=== PATIENT | male | born 1965 | race Caucasian/White ===

== ENCOUNTER 2020-12-31 00:47 | Inpatient (IN) | payer BC ==
--- NOTE | 2020-12-31 01:41 | ED ---
General Adult HPI - General Chief complaint: Shortness of Breath Stated complaint: CHIVO, Covid+ Time Seen by Provider: 12/31/20 01:08 Source: patient, EMS Mode of arrival: EMS Limitations: no limitations - History of Present Illness Initial comments: 55-year-old male with history of coronary artery disease, diabetes, hypertension presenting to the emergency department with a chief complaint of shortness of breath. Patient is a transfer from [facility] for Covid pneumonia. Patient was found to be Covid positive and had bilateral pneumonia. Patient was transferred on BiPAP and was given Ativan to help with anxiety. On arrival, patient reported improvement in his respiratory effort and which transition to a high flow nasal cannula 10 L. Patient reports is only experiencing shortness of breath without any chest pain. States the symptoms of an ongoing for the past 10 days. Not Covid vaccinated. - Related Data Allergies Allergy/AdvReac Type Severity Reaction Status Date / Time aspirin Allergy Anaphylaxis Verified 12/31/20 00:53 Review of Systems ROS Statement: Those systems with pertinent positive or pertinent negative responses have been documented in the HPI. ROS Other: All systems not noted in ROS Statement are negative. Past Medical History Past Medical History: Diabetes Mellitus, Hypertension, Myocardial Infarction (PR) History of Any Multi-Drug Resistant Organisms: None Reported Additional Past Surgical History / Comment(s): Stent Past Psychological History: No Psychological Hx Reported Smoking Status: Never smoker Past Alcohol Use History: None Reported Past Drug Use History: None Reported General Exam Limitations: no limitations General appearance: alert, in no apparent distress Head exam: Present: atraumatic, normocephalic, normal inspection Eye exam: Present: normal appearance, PERRL, EOMI Pupils: Present: normal accommodation ENT exam: Present: normal exam, normal oropharynx, mucous membranes moist Neck exam: Present: normal inspection, full ROM. Absent: tenderness Respiratory exam: Present: normal lung sounds bilaterally, decreased breath sounds. Absent: respiratory distress, wheezes, rales, rhonchi, stridor Cardiovascular Exam: Present: regular rate, normal rhythm, normal heart sounds. Absent: systolic murmur GI/Abdominal exam: Present: soft. Absent: distended, tenderness, guarding, rebound Extremities exam: Present: normal inspection, full ROM, normal capillary refill. Absent: tenderness Back exam: Present: normal inspection, full ROM. Absent: tenderness Neurological exam: Present: alert, oriented X3 Psychiatric exam: Present: normal affect, normal mood Skin exam: Present: warm, dry, intact, normal color Course Vital Signs 12/31/20 12/31/20 12/31/20 00:48 01:21 01:53 Temperature 98.5 F Pulse Rate 77 69 Respiratory 18 30 H 18 Rate Blood Pressure 106/77 97/68 O2 Sat by Pulse 99 95 Oximetry EKG Findings - EKG Comments: EKG Findings:: Right bundle-branch block. Ventricular rate 91, AL 134, QRS 110, QTc 450. Medical Decision Making - Medical Decision Making 55-year-old male with history of hypertension, coronary artery disease and diabetes presenting to the emergency department for Covid pneumonia. On physical examination, patient does appear to be dyspneic with decreased breath sounds. Oxygen saturation is 95% on high flow nasal cannula. Patient is otherwise resting comfortably. I discussed the case with who will admit. Case discussed with Dr. Ocampo Pulmonary consult Disposition Clinical Impression: Pneumonia due to COVID-19 virus Disposition: ADMITTED IP TO THIS HOSP Condition: Fair Is patient prescribed a controlled substance at d/c from ED?: No Referrals: None,Stated [Primary Care Provider] - 1-2 days Time of Disposition: 02:33
[2020-12-31] MEDS ORDERED: NALOXONE 0.4 MG/ML 1 ML VIAL IV PRN (01:58)
[2020-12-31] MEDS ORDERED: BENZONATATE 100 MG CAP PO PRN (04:44)
[2020-12-31] MEDS ORDERED: ACETAMINOPHEN TAB 325 MG TAB PO PRN (04:45)
--- NOTE | 2020-12-31 04:54 | P.HPIM ---
History of Present Illness H&P Date: 12/31/20 Chief Complaint: Covid pneumonitis 55-year-old male diabetes mellitus hypertension coronary artery disease Was transferred to our facility from [facility] due to acute hypoxic respiratory failure secondary to Covid pneumonitis. Patient was diagnosed with Covid about 10 days ago he claims to have symptoms for about 10 days now he is not recalling any sick contacts. He is reporting fevers and chills and shortness of breath but denies any chest pain severe cough and congestion. He is also reporting diffuse body aches denies any diarrhea or vomiting. He is not vaccinated against Covid At the other facility was found to be hypoxic and was given some Ativan to help him calm down , Decadron, and was started on BiPAP and was transferred to our facility Chest x-ray over there showed bilateral infiltrates suggestive of atypical pneumonia, Covid testing was positive, renal function was unremarkable, potassium was low at 3.2, liver enzymes were unremarkable, hemoglobin was 15, CRP was elevated, troponins negative At our facility patient was evaluated and stabilized, at this point he was switched to high flow nasal cannula Review of Systems Pertinent positives as noted in HPI. All other systems were reviewed and are negative Past Medical History Past Medical History: Diabetes Mellitus, Myocardial Infarction ([place]) Last Myocardial Infarction Date:: 10/21/2013 History of Any Multi-Drug Resistant Organisms: None Reported Additional Past Surgical History / Comment(s): Stent in 2013, one stent in each leg one in 2018 and the other in 2019 Past Psychological History: No Psychological Hx Reported Smoking Status: Never smoker Past Alcohol Use History: None Reported Past Drug Use History: None Reported - Past Family History Family Family Medical History: No Reported History Medications and Allergies Home Medications and Allergies Comment(s): Patient showed me his med list on his phone where he access from his medical record Home Medications Medication Instructions Recorded Confirmed Type Nebivolol HCl [Bystolic] 10 mg PO DAILY 12/31/20 12/31/20 History Allergies Allergy/AdvReac Type Severity Reaction Status Date / Time aspirin Allergy Anaphylaxis Verified 12/31/20 00:53 Physical Exam Vitals: Vital Signs Temp Pulse Resp BP Pulse Ox 12/31/20 04:04 94 L 12/31/20 03:00 71 22 95/64 96 12/31/20 01:53 69 18 97/68 95 12/31/20 01:21 30 H 12/31/20 00:48 98.5 F 77 18 106/77 99 Intake and Output 12/30/20 12/30/20 12/31/20 14:59 22:59 06:59 Other: Weight 81.647 kg Constitutional: Patient only answers by nodding had he is very short of breath currently on high flow nasal cannula Eyes: Anicteric sclerae, moist conjunctiva, Pupils equal round reactive to light ENMT: NC/AT Neck: Supple, no masses, or JVD No carotid bruits No thyromegaly Lungs: Good breath sounds bilaterally Clear to percussion Normal respiratory effort, no accessory muscle use Cardiovascular: Heart regular in rate and rhythm, No murmurs, gallops, or rubs No peripheral edema Abdominal: Soft Nontender, no guarding, rebound or rigidity Abdomen moving with respiration Normoactive bowel sounds No hepatomegaly, No splenomegaly No palpable mass No abdominal wall hernia noted Skin: Normal temperature, tone, texture, turgor No induration No subcutaneous nodules No rash, lesions No ulcers Extremities: No digital cyanosis No clubbing Pedal pulses intact and symmetrical Radial pulses intact and symmetrical No calf tenderness Psychiatric: Alert and oriented to person, place and time Appropriate affect fair judgement Neuro Muscles Strength 5/5 in all 4 extremities Sensation to light touch grossly present throughout Cranial nerves II-XII grossly intact No focal sensory deficits Lymphatics: no palpable cervical or supraclavicular , or inguinal lymph nodes Thrombosis Risk Factor Assmnt - Choose All That Apply Each Factor Represents 1 point: Acute [place], Age 41-60 years, Obesity (BMI >25) Other Risk Factors: No Other congenital or acquired thrombophilia - If yes, enter type in comment: No Thrombosis Risk Factor Assessment Total Risk Factor Score: 3 Thrombosis Risk Factor Assessment Level: Moderate Risk Assessment and Plan Assessment: Acute hypoxic respiratory failure Acute Covid midnight his Supplemental oxygen as needed Chest x-ray showed bilateral atypical infiltrates Covid testing positive at the other facility Patient started on Decadron High flow oxygen Supportive care Tylenol for fever Check d-dimer, fibrinogen, PT INR, troches, BMP, LDH, CRP, ferritin, CK, poor prognostic evaluation Pulmonary consult Symptomatic control of coughing and pain Chronic conditions CAD Hypertension Diabetes mellitus Patient on multi antiplatelets medications for his cardiac history, he is on cholesterol medications Resume blood pressure medications Patient also on pradaxa for history of clots this is not clear again patient was giving limited history Insulin sliding scale Prognosis is guarded Patient is full code Anticipated length of stay more than 2 midnights
[2020-12-31 06:27] LABS: Partial Thromboplastin Time 25.1 sec (22.0-30.0); Prothrombin Time 10.4 sec (9.0-12.0)
[2020-12-31] MEDS: SODIUM CHLORIDE 0.9% 1,000 ML IV SCH ×2 (08:22→21:15)
[2020-12-31 08:47] LABS: Glucose,Whole Blood 215 mg/dL (75-99)
[2020-12-31] MEDS ORDERED: CLOPIDOGREL 75 MG TAB PO SCH (09:00)
[2020-12-31] MEDS: INSULIN ASPART (NovoLOG) 100 UNIT/ML VIAL SQ SCH ×4 (09:04→21:15)
[2020-12-31] MEDS: NEBIVOLOL 5 MG TAB PO SCH (09:05)
[2020-12-31] MEDS: DABIGATRAN 150 MG CAP PO SCH ×2 (09:05→21:15)
[2020-12-31] MEDS: PANTOPRAZOLE 40 MG TABLET PO SCH ×2 (09:05→17:17)
[2020-12-31] MEDS: dexAMETHasone 2 MG TAB PO SCH (09:05)
[2020-12-31] MEDS: LOSARTAN 25 MG TAB PO SCH (09:05)
[2020-12-31] MEDS: TICAGRELOR 90 MG TAB PO SCH ×2 (09:06→21:15)
[2020-12-31] MEDS: EZETIMIBE 10 MG TAB PO SCH (09:07)
[2020-12-31 09:32] LABS: Basophils # (A) 0.01 X 10*3/uL (0.00-0.10); Basophils % (A) 0.4 %; Eosinophils # (A) 0 X 10*3/uL (0.04-0.35); Eosinophils % (A) 0 %; HCT 39.8 % (39.6-50.0); HGB 13.8 g/dL (13.0-17.0); Lymphocytes # (A) 0.37 X 10*3/uL (0.90-5.00); Lymphocytes % (A) 15.2 %; MCH 28.5 pg (27.0-32.0); MCHC 34.7 g/dL (32.0-37.0); MCV 82.2 fL (80.0-97.0); Mean Platelet Volume 9.8 fL (9.5-12.2); Monocytes # (A) 0.14 X 10*3/uL (0.20-1.00); Monocytes % (A) 5.8 %; Neutrophils # (A) 1.89 X 10*3/uL (1.80-7.70); Neutrophils % (A) 77.8 %; Platelet Count 137 X 10*3/uL (140-440); RBC 4.84 X 10*6/uL (4.40-5.60); RDW 13.1 % (11.5-14.5); WBC 2.43 X 10*3/uL (4.50-10.00)
[2020-12-31 11:07] LABS: Glucose,Whole Blood 248 mg/dL (75-99)
[2020-12-31 14:41] LABS: African American GFR (CKD) 99.1 (60.0-200.0); Albumin 3.8 g/dL (3.80-4.90); Albumin/Globulin Ratio 1.52 (1.60-3.17); Anion Gap 12.3 mmol/L (4.00-12.00); C Reactive Protein 7.9 mg/dL (0.0-0.8); Calcium 8.2 mg/dL (8.7-10.3); Carbon Dioxide 23.7 mmol/L (21.6-31.8); Ferritin 2075.8 ng/mL (22.0-322.0); Globulin 2.5 g/dL (1.6-3.3); Non-African American GFR(CKD) 85.5 (60.0-200.0); Total Bilirubin 0.9 mg/dL (0.3-1.2); Total Protein 6.3 g/dL (6.2-8.2)
--- NOTE | 2020-12-31 15:39 | P.CNPUL ---
History of Present Illness Consult date: 12/31/20 Requesting physician: Wilbur Corrigan Reason for consult: dyspnea, cough, hypoxemia, pneumonia, abnormal CXR/CT Chief complaint: Shortness of breath. History of present illness: Pulmonary consult dated 12/31/2020. 56-year-old male, seen in the emergency room, on December 31. The patient has a history of diabetes and hypertension. He Presents to the emergency room complaining of shortness of breath. The patient was apparently transferred from [facility] and [place]. There he was apparently diagnosed with COVID pneumonia. The patient was diagnosed with bilateral pneumonia secondary to coronavirus. The patient was transferred down on BiPAP therapy. He was quite anxious. More recently, he was transitioned over to high flow nasal O2. He denied any chest pain or chest discomfort. There is no fever or chills. The patient has been having symptoms for at least 10 days and may be a bit longer. The patient has not received a coronavirus vaccine. Currently, the patient is on AIRVO, at 40 L/m and 55%. His saturations are in the low 90s. White count 2.43, hemoglobin 13.8, hematocrit 39.8, and platelet count 137,000. PT 10.4, INR 1, fibrinogen 524, PTT 25.1, and d-dimer 0.83. Sodium was 135, potassium 4, chloride 99, CO2 24, anion gap 12, BUN 28, creatinine 1. The patient's CK was 428. LDH was 647, and C-reactive protein was 7.9. Chest x-ray showed diffuse bilateral infiltrates. Currently, the patient's on albuterol inhaler, Decadron, Pradaxa, and his usual cardiac medications. Review of Systems REVIEW OF SYSTEMS: CONSTITUTIONAL: [Negative.] NEUROLOGIC: [ Negative.] HEENT: [ Negative.] CARDIAC: [Negative.] PULMONARY: Shortness of breath, and difficulty in taking a deep breath. GI: [Negative.] : [Negative.] RHEUMATOLOGIC: [ Negative.] IMMUNOLOGIC: [ Negative.] ENDOCRINE: [Negative. ] DERMATOLOGIC: [Negative.] Past Medical History Past Medical History: Diabetes Mellitus, Myocardial Infarction ([place]) Last Myocardial Infarction Date:: 10/21/2013 History of Any Multi-Drug Resistant Organisms: None Reported Additional Past Surgical History / Comment(s): Stent in 2013, one stent in each leg one in 2018 and the other in 2019 Past Psychological History: No Psychological Hx Reported Smoking Status: Never smoker Past Alcohol Use History: None Reported Past Drug Use History: None Reported - Past Family History Family Family Medical History: No Reported History Medications and Allergies Home Medications Medication Instructions Recorded Confirmed Type Dabigatran [Pradaxa] 150 mg PO BID 12/31/20 12/31/20 History Empagliflozin [Jardiance] 10 mg PO DAILY 12/31/20 12/31/20 History Ezetimibe [Zetia] 10 mg PO DAILY 12/31/20 12/31/20 History Nebivolol HCl [Bystolic] 10 mg PO DAILY 12/31/20 12/31/20 History Nitroglycerin [Nitroglycerin 1 spray SUBLINGUAL Q5M PRN 12/31/20 12/31/20 History 400MCG [place]] Olmesartan Medoxomil 5 mg PO DAILY 12/31/20 12/31/20 History Omeprazole [PriLOSEC] 40 mg PO DAILY 12/31/20 12/31/20 History Ticagrelor [Brilinta] 90 mg PO BID 12/31/20 12/31/20 History metFORMIN HCL [Glucophage] 500 mg PO BID 12/31/20 12/31/20 History Allergies Allergy/AdvReac Type Severity Reaction Status Date / Time aspirin Allergy Anaphylaxis Verified 12/31/20 07:12 Physical Exam Osteopathic Statement: *. No significant issues noted on an osteopathic structural exam other than those noted in the History and Physical/Consult. Vitals: Vital Signs Temp Pulse Pulse Resp BP BP Pulse Ox 12/31/20 14:00 97.5 F L 70 18 92/64 92 L 12/31/20 09:13 76 16 101/68 12/31/20 08:00 76 16 12/31/20 06:00 97.7 F 52 L 22 96/62 92 L 12/31/20 04:04 94 L 12/31/20 03:00 71 22 95/64 96 12/31/20 01:53 69 18 97/68 95 12/31/20 01:21 30 H 12/31/20 00:48 98.5 F 77 18 106/77 99 Intake and Output 12/31/20 12/31/20 12/31/20 06:59 14:59 22:59 Other: # Voids 1 Weight 81.647 kg 81.647 kg No acute distress, oriented 3. No conversational dyspnea or use of accessory muscles. HEENT examination is grossly unremarkable. Neck supple. Full range of motion. No adenopathy thyromegaly or neck vein distention. Cardiovascular examination reveals regular rhythm rate. S1-S2 normal. No S3 or S4. No discernible murmur noted. Heart sounds are distant. Heart rate 70 bpm. Lungs reveal bilateral rhonchi. No wheezes or crackles. Breath sounds equal bilaterally. Saturations are 92-93% on AIRVO. Abdomen soft bowel sounds are heard. No masses or tenderness. Extremities are intact. No cyanosis clubbing or edema. Skin is without rash or lesion. Neurologic examination is brief but nonfocal. Results - Laboratory Findings CBC and BMP: 12/31/20 05:55 12/31/20 05:55 PT/INR, D-dimer PT 10.4 sec (9.0-12.0) 12/31/20 05:55 INR 1.0 (<1.2) 12/31/20 05:55 D-Dimer 0.83 mg/L FEU (<0.60) H 12/31/20 05:55 Abnormal lab findings: Abnormal Labs 12/31/20 12/31/20 12/31/20 05:55 05:55 05:55 WBC 2.43 L Plt Count 137 L Lymphocytes # 0.37 L Monocytes # 0.14 L Eosinophils # 0 L Fibrinogen 524 H D-Dimer 0.83 H Anion Gap 12.30 H BUN 28.0 H BUN/Creatinine Ratio 28.00 H Glucose 225 H POC Glucose (mg/dL) Calcium 8.2 L Ferritin 2075.8 H AST 65 H Lactate Dehydrogenase 647 H Creatine Kinase 428 H C-Reactive Protein 7.9 H Albumin/Globulin Ratio 1.52 L 12/31/20 12/31/20 08:45 11:06 WBC Plt Count Lymphocytes # Monocytes # Eosinophils # Fibrinogen D-Dimer Anion Gap BUN BUN/Creatinine Ratio Glucose POC Glucose (mg/dL) 215 H 248 H Calcium Ferritin AST Lactate Dehydrogenase Creatine Kinase C-Reactive Protein Albumin/Globulin Ratio - Diagnostic Findings Chest x-ray: image reviewed Assessment and Plan Assessment: Acute hypoxemic respiratory failure secondary to coronavirus pneumonia. History of diabetes mellitus. History of hypertension. History of coronary artery disease. History of myocardial infarction. History of hyperlipidemia. Plan: Plan dated 12/31/2020. Currently, the patient's an albuterol inhaler, pradaxa, and Decadron. The patient should also have vitamin C, vitamin D3, and zinc added to his regimen. Additional recommendations and suggestions are forthcoming. We will continue to follow make recommendations where appropriate. The patient may become a candidate for monoclonal antibody against interleukin-6, should his oxygenation worsened. I will order a chest x-ray for the morning. Time with Patient: Greater than 30
[2020-12-31] MEDS: ALBUTEROL HFA INHALER INHALATION PRN ×2 (16:01→19:53)
--- NOTE | 2020-12-31 16:19 | XR ---
EXAMINATION TYPE: XR chest 1V portable DATE OF EXAM: 12/31/2020 HISTORY: COVID pneumonia COMPARISON: None. TECHNIQUE: Single view of the chest is submitted. FINDINGS: Demonstrated are scattered senescent parenchymal change. Patchy perihilar and basilar infiltrates compatible with Covid 19 pneumonia. The heart is stable. Hilar and mediastinal structures are within normal limits. Degenerative changes are seen of the dorsal spine. IMPRESSION: 1. Patchy perihilar and basilar infiltrates compatible with Covid 19 pneumonia.
[2020-12-31 16:59] LABS: Glucose,Whole Blood 229 mg/dL (75-99)
[2020-12-31 21:04] LABS: Glucose,Whole Blood 268 mg/dL (75-99)
[2021-01-01] MEDS: SODIUM CHLORIDE 0.9% 1,000 ML IV SCH (04:54)
[2021-01-01] MEDS: PANTOPRAZOLE 40 MG TABLET PO SCH ×2 (06:52→17:12)
[2021-01-01] MEDS: INSULIN ASPART (NovoLOG) 100 UNIT/ML VIAL SQ SCH ×4 (06:52→21:16)
[2021-01-01 06:59] LABS: Glucose,Whole Blood 213 mg/dL (75-99)
[2021-01-01] MEDS: TICAGRELOR 90 MG TAB PO SCH ×2 (08:25→21:16)
[2021-01-01] MEDS: ZINC SULFATE 220 MG CAP PO SCH (08:26)
[2021-01-01] MEDS: LOSARTAN 25 MG TAB PO SCH (08:26)
[2021-01-01] MEDS: CHOLECALCIFEROL 25 MCG (1000 IU) TABLET PO SCH (08:26)
[2021-01-01] MEDS: NEBIVOLOL 5 MG TAB PO SCH (08:26)
[2021-01-01] MEDS: ASCORBIC ACID 500 MG TAB PO SCH (08:26)
[2021-01-01] MEDS: DABIGATRAN 150 MG CAP PO SCH ×2 (08:26→21:15)
[2021-01-01] MEDS: dexAMETHasone 2 MG TAB PO SCH (08:26)
[2021-01-01] MEDS: EZETIMIBE 10 MG TAB PO SCH (08:32)
[2021-01-01] MEDS: ALBUTEROL HFA INHALER INHALATION PRN ×4 (09:23→20:13)
[2021-01-01 12:50] LABS: Glucose,Whole Blood 215 mg/dL (75-99)
--- NOTE | 2021-01-01 13:07 | P.PN ---
Subjective Progress Note Date: 01/01/21 Patient is feeling the same compared to yesterday. He is on IV fluid oxygen via nasal cannula. No significant improvement since yesterday. Objective - Vital Signs Vital signs: Vital Signs Temp 97.7 F 01/01/21 04:00 Pulse 76 01/01/21 07:56 Resp 24 01/01/21 07:56 BP 102/55 01/01/21 07:56 Pulse Ox 89 L 01/01/21 07:56 Intake & Output 12/31/20 01/01/21 01/01/21 18:59 06:59 18:59 Intake Total 20 240 Balance 20 240 Weight 81.647 kg 82 kg Intake: IV 20 Invasive Line 2 20 Oral 240 Other: Voiding Method Urinal # Voids 3 0 1 - Exam General: The patient is awake and alert, in no distress Eye: there is normal conjunctiva bilaterally. Neck: The neck is supple, there is no JVD. Cardiovascular: Normal S1-S2, no S3-S4, no murmurs. Respiratory: Lungs clear to auscultation bilaterally Gastrointestinal: Abdomen is soft, nontender Musculoskeletal: There is no pedal edema. Neurological:. Speech is normal. Skin: Skin is warm and dry - Labs CBC & Chem 7: 12/31/20 05:55 12/31/20 05:55 Labs: Abnormal Lab Results - Last 24 Hours (Table) 12/31/20 12/31/20 12/31/20 Range/Units 05:55 05:55 16:55 Anion Gap 12.30 H (4.00-12.00) mmol/L BUN 28.0 H (9.0-27.0) mg/dL BUN/Creatinine Ratio 28.00 H (12.00-20.00) Ratio Glucose 225 H (70-110) mg/dL POC Glucose (mg/dL) 229 H (75-99) mg/dL Calcium 8.2 L (8.7-10.3) mg/dL Ferritin 2075.8 H (22.0-322.0) ng/mL AST 65 H (14-35) U/L Lactate Dehydrogenase 647 H (120-246) U/L Creatine Kinase 428 H (35-257) U/L C-Reactive Protein 7.9 H (0.0-0.8) mg/dL Albumin/Globulin Ratio 1.52 L (1.60-3.17) g/dL Procalcitonin 0.10 H (0.02-0.09) ng/mL 12/31/20 01/01/21 01/01/21 Range/Units 21:03 06:49 12:47 Anion Gap (4.00-12.00) mmol/L BUN (9.0-27.0) mg/dL BUN/Creatinine Ratio (12.00-20.00) Ratio Glucose (70-110) mg/dL POC Glucose (mg/dL) 268 H 213 H 215 H (75-99) mg/dL Calcium (8.7-10.3) mg/dL Ferritin (22.0-322.0) ng/mL AST (14-35) U/L Lactate Dehydrogenase (120-246) U/L Creatine Kinase (35-257) U/L C-Reactive Protein (0.0-0.8) mg/dL Albumin/Globulin Ratio (1.60-3.17) g/dL Procalcitonin (0.02-0.09) ng/mL Assessment and Plan Assessment: This is a 55-year-old male with past medical history noted below who presented to the emergency room as a transfer from outside hospital for further management of this is a 55-year-old male with past medical history noted below who presented to the emergency room from outside hospital for further management of his medical problems noted below 1. COVID-19 pneumonitis: In unvaccinated patient. Symptoms onset over 10 days ago prior to presentation. Currently on steroids. Patient was seen and evaluat ed by pulmonary. Continue vitamins as ordered. 2. Acute hypoxic respiratory failure requiring high flow oxygen 3. Chronic medical problems: Coronary artery disease, hypertension, type 2 diabetes, hyperlipidemia Continue supportive care. Appreciate pulmonary recommendations. Wean off O2 as tolerated.
--- NOTE | 2021-01-01 13:59 | P.PN ---
Subjective Progress Note Date: 01/01/21 Principal diagnosis: Shortness of breath. Pulmonary consult dated 12/31/2020. 56-year-old male, seen in the emergency room, on December 31. The patient has a history of diabetes and hypertension. He Presents to the emergency room complaining of shortness of breath. The patient was apparently transferred from [facility] and [place]. There he was apparently diagnosed with COVID pneumonia. The patient was diagnosed with bilateral pneumonia secondary to coronavirus. The patient was transferred down on BiPAP therapy. He was quite anxious. More recently, he was transitioned over to high flow nasal O2. He denied any chest pain or chest discomfort. There is no fever or chills. The patient has been having symptoms for at least 10 days and may be a bit longer. The patient has not received a coronavirus vaccine. Currently, the patient is on AIRVO, at 40 L/m and 55%. His saturations are in the low 90s. White count 2.43, hemoglobin 13.8, hematocrit 39.8, and platelet count 137,000. PT 10.4, INR 1, fibrinogen 524, PTT 25.1, and d-dimer 0.83. Sodium was 135, potassium 4, chloride 99, CO2 24, anion gap 12, BUN 28, creatinine 1. The patient's CK was 428. LDH was 647, and C-reactive protein was 7.9. Chest x-ray showed diffuse bilateral infiltrates. Currently, the patient's on albuterol inhaler, Decadron, Pradaxa, and his usual cardiac medications. Progress note dated 01/01/2021. This is a 56-year-old male, again seen in room 369. The patient has a history of diabetes and hypertension, and presented to the emergency department with shortness of breath. He was transferred down from [facility] in [place]. The patient apparently has been tested a couple times for coronavirus, and tested negative or inconclusive. He was retested here. The patient is being treated as if he has coronavirus pneumonia. Currently, he is on AIRVO. He was on 55 L/m and an FiO2 of 80%. The patient will be sent down on BiPAP for a CT angiogram. There is no new laboratory data today. The patient's major issue is shortness of breath and anxiety. Objective - Vital Signs Vital signs: Vital Signs Temp 98.1 F 01/01/21 12:00 Pulse 67 01/01/21 12:00 Resp 22 01/01/21 12:00 BP 98/62 01/01/21 12:00 Pulse Ox 93 L 01/01/21 12:00 Intake & Output 12/31/20 01/01/21 01/01/21 18:59 06:59 18:59 Intake Total 20 240 Balance 20 240 Weight 81.647 kg 82 kg Intake: IV 20 Invasive Line 2 20 Oral 240 Other: Voiding Method Urinal # Voids 3 0 1 - Exam No acute distress, oriented 3. Mild conversational dyspnea without use of accessory muscles. HEENT examination is grossly unremarkable. Neck supple. Full range of motion. No adenopathy thyromegaly or neck vein distention. Cardiovascular examination reveals regular rhythm rate. S1-S2 normal. No S3 or S4. No discernible murmur noted. Heart sounds are distant. Heart rate 67 bpm. Lungs reveal bilateral rhonchi. No wheezes or crackles. Breath sounds equal bilaterally. Saturations are 92-93% on AIRVO. Abdomen soft bowel sounds are heard. No masses or tenderness. Extremities are intact. No cyanosis clubbing or edema. Skin is without rash or lesion. Neurologic examination is brief but nonfocal. - Labs CBC & Chem 7: 12/31/20 05:55 12/31/20 05:55 Labs: Abnormal Lab Results - Last 24 Hours (Table) 12/31/20 12/31/20 12/31/20 Range/Units 05:55 05:55 16:55 Anion Gap 12.30 H (4.00-12.00) mmol/L BUN 28.0 H (9.0-27.0) mg/dL BUN/Creatinine Ratio 28.00 H (12.00-20.00) Ratio Glucose 225 H (70-110) mg/dL POC Glucose (mg/dL) 229 H (75-99) mg/dL Calcium 8.2 L (8.7-10.3) mg/dL Ferritin 2075.8 H (22.0-322.0) ng/mL AST 65 H (14-35) U/L Lactate Dehydrogenase 647 H (120-246) U/L Creatine Kinase 428 H (35-257) U/L C-Reactive Protein 7.9 H (0.0-0.8) mg/dL Albumin/Globulin Ratio 1.52 L (1.60-3.17) g/dL Procalcitonin 0.10 H (0.02-0.09) ng/mL 12/31/20 01/01/21 01/01/21 Range/Units 21:03 06:49 12:47 Anion Gap (4.00-12.00) mmol/L BUN (9.0-27.0) mg/dL BUN/Creatinine Ratio (12.00-20.00) Ratio Glucose (70-110) mg/dL POC Glucose (mg/dL) 268 H 213 H 215 H (75-99) mg/dL Calcium (8.7-10.3) mg/dL Ferritin (22.0-322.0) ng/mL AST (14-35) U/L Lactate Dehydrogenase (120-246) U/L Creatine Kinase (35-257) U/L C-Reactive Protein (0.0-0.8) mg/dL Albumin/Globulin Ratio (1.60-3.17) g/dL Procalcitonin (0.02-0.09) ng/mL Assessment and Plan Assessment: Acute hypoxemic respiratory failure secondary to coronavirus pneumonia. History of diabetes mellitus. History of hypertension. History of coronary artery disease. History of myocardial infarction. History of hyperlipidemia. Plan: Plan dated 12/31/2020. Currently, the patient's an albuterol inhaler, pradaxa, and Decadron. The patient should also have vitamin C, vitamin D3, and zinc added to his regimen. Additional recommendations and suggestions are forthcoming. We will continue to follow make recommendations where appropriate. The patient may become a candidate for monoclonal antibody against interleukin-6, should his oxygenation worsened. I will order a chest x-ray for the morning. Plan dated 01/01/2021. The patient will be sent down for a CT angiogram to rule out pulmonary embolus some, on BiPAP. When he returns to the room, he could be placed back on AIRVO. Currently, he is on albuterol inhaler, vitamin C, vitamin D3, Decadron, and zinc, as well as Pradaxa. Additional recommendations and suggestions are forthcoming. Prognosis is guarded. The patient will be retested for coronavirus. The patient may benefit from a monoclonal antibody against interleukin-6, should his oxygenation worsen. Time with Patient: Less than 30
--- NOTE | 2021-01-01 14:19 | CT ---
EXAMINATION TYPE: CT angio chest DATE OF EXAM: 01/01/2021 1:38 PM COMPARISON: Chest x-ray from yesterday HISTORY: hypoxemia, covid CT DLP: 418.1 mGycm Automated exposure control for dose reduction was used. CONTRAST: CTA scan of the thorax is performed with IV Contrast, patient injected with 100 mL of Isovue 370, pul monary embolism protocol. MIP images are created and reviewed. FINDINGS: LUNGS: Persistent low lung volumes with multifocal and confluent ground glass opacities and organizin g consolidations bilaterally. Consolidation is greatest in the lower lung. Incidental 8 mm peripheral calcified nodule or granuloma right midlung laterally axial image 57. No pleural effusion or pneumot horax seen bilaterally. MEDIASTINUM: There is a suboptimal study with some heterogeneity but no convincing CT evidence for ac campo pulmonary embolism. There are prominent reactive bilateral hilar lymph nodes. Heart size upper l imits of normal. No pericardial effusion is seen. Mild Coronary artery calcification in the LAD dis tribution. Satisfactory enhancement of the aorta without aneurysm or dissection. OTHER: Exaggerated thoracic aortic kyphosis. Mild/moderate multilevel spurring lower thoracic spine. . IMPRESSION: Suboptimal study without acute pulmonary embolism. Bilateral multifocal and confluent jody undglass opacities in organizing consolidations consistent with covid-19 infection are noted.
[2021-01-01 20:05] LABS: Glucose,Whole Blood 237 mg/dL (75-99)
[2021-01-02 06:13] LABS: Glucose,Whole Blood 198 mg/dL (75-99)
[2021-01-02] MEDS: PANTOPRAZOLE 40 MG TABLET PO SCH ×2 (06:17→17:29)
[2021-01-02] MEDS: INSULIN ASPART (NovoLOG) 100 UNIT/ML VIAL SQ SCH ×4 (06:17→21:46)
[2021-01-02 08:49] LABS: Basophils % (A) 0 %; Eosinophils % (A) 0 %; HCT 38.5 % (39.0-53.0); HGB 13.1 gm/dL (13.0-17.5); Lymphocytes # (A) 0.4 k/uL (1.0-4.8); Lymphocytes % (A) 5 %; MCH 28.8 pg (25.0-35.0); MCHC 34.1 g/dL (31.0-37.0); MCV 84.3 fL (80.0-100.0); Mean Platelet Volume 6.9; Monocytes # (A) 0.4 k/uL (0-1.0); Monocytes % (A) 6 %; Neutrophils # (A) 6.7 k/uL (1.3-7.7); Neutrophils % (A) 88 %; Platelet Count 216 k/uL (150-450); RBC 4.56 m/uL (4.30-5.90); RDW 13.1 % (11.5-15.5); WBC 7.6 k/uL (3.8-10.6)
[2021-01-02 09:10] LABS: African American GFR (CKD) >90 (>60 ml/min/1.73 sqM); Anion Gap 6 mmol/L; Blood Urea Nitrogen 21 mg/dL (9-20); Calcium 8.4 mg/dL (8.4-10.2); Carbon Dioxide 27 mmol/L (22-30); Chloride 106 mmol/L (98-107); Creatine Kinase 80 U/L (55-170); Glucose 187 mg/dL (74-99); LDH 1372 U/L (313-618); Magnesium 2.6 mg/dL (1.6-2.3); Non-African American GFR(CKD) >90 (>60 ml/min/1.73 sqM); Potassium 3.8 mmol/L (3.5-5.1); Sodium 139 mmol/L (137-145)
[2021-01-02] MEDS: ALBUTEROL HFA INHALER INHALATION PRN ×3 (09:16→21:02)
[2021-01-02] MEDS: EZETIMIBE 10 MG TAB PO SCH (09:20)
[2021-01-02] MEDS: NEBIVOLOL 5 MG TAB PO SCH (09:20)
[2021-01-02] MEDS: DABIGATRAN 150 MG CAP PO SCH ×2 (09:20→21:46)
[2021-01-02] MEDS: dexAMETHasone 2 MG TAB PO SCH (09:21)
[2021-01-02] MEDS: ZINC SULFATE 220 MG CAP PO SCH (09:21)
[2021-01-02] MEDS: TICAGRELOR 90 MG TAB PO SCH ×2 (09:21→21:46)
[2021-01-02] MEDS: LOSARTAN 25 MG TAB PO SCH (09:21)
[2021-01-02] MEDS: CHOLECALCIFEROL 25 MCG (1000 IU) TABLET PO SCH (09:21)
[2021-01-02] MEDS: ASCORBIC ACID 500 MG TAB PO SCH (09:21)
[2021-01-02 12:05] LABS: Glucose,Whole Blood 175 mg/dL (75-99)
[2021-01-02] MEDS: methylPREDNISolone SOD SUCCI 125 MG/2 ML VIAL IV SCH ×3 (12:55→23:27)
[2021-01-02] MEDS: BARICITINIB 2 MG TABLET PO SCH (12:55)
--- NOTE | 2021-01-02 14:05 | P.PN ---
Subjective Progress Note Date: 01/02/21 Principal diagnosis: COVID-19 pneumonia 56-year-old male, seen in the emergency room, on December 31. The patient has a history of diabetes and hypertension. He Presents to the emergency room complaining of shortness of breath. The patient was apparently transferred from [facility] and [place]. There he was apparently diagnosed with COVID pneumonia. The patient was diagnosed with bilateral pneumonia secondary to coronavirus. The patient was transferred down on BiPAP therapy. He was quite anxious. More recently, he was transitioned over to high flow nasal O2. He denied any chest pain or chest discomfort. There is no fever or chills. The patient has been having symptoms for at least 10 days and may be a bit longer. The patient has not received a coronavirus vaccine. Currently, the patient is on AIRVO, at 40 L/m and 55%. His saturations are in the low 90s. White count 2.43, hemoglobin 13.8, hematocrit 39.8, and platelet count 137,000. PT 10.4, INR 1, fibrinogen 524, PTT 25.1, and d-dimer 0.83. Sodium was 135, potassium 4, chloride 99, CO2 24, anion gap 12, BUN 28, creatinine 1. The patient's CK was 428. LDH was 647, and C-reactive protein was 7.9. Chest x-ray showed diffuse bilateral infiltrates. Currently, the patient's on albuterol inhaler, Decadron, Pradaxa, and his usual cardiac medications. Progress note dated 01/01/2021. This is a 56-year-old male, again seen in room 369. The patient has a history of diabetes and hypertension, and presented to the emergency department with shortness of breath. He was transferred down from [facility] in [place]. The patient apparently has been tested a couple times for coronavirus, and tested negative or inconclusive. He was retested here. The patient is being treated as if he has coronavirus pneumonia. Currently, he is on AIRVO. He was on 55 L/m and an FiO2 of 80%. The patient will be sent down on BiPAP for a CT angiogram. There is no new laboratory data today. The patient's major issue is shortness of breath and anxiety. The patient is seen today 01/02/2021 and follow-up on the selective care unit. He is currently resting fairly comfortably in bed. Still short of breath with minimal activity. Short of breath with conversation. He is currently on air bubble high flow oxygen at 55 L and 80% FiO2. He did test positive for the coronavirus by PCR here. White count 7.6. Hemoglobin 13.1. Lymphocytes 0.4. D-dimer 1.3. Sodium 139. Potassium 30.8. Creatinine 0.70. Glucose 187. He remains on DuoNeb inhalations, IV Solu-Medrol, vitamin supplements. Anticoagulated with Pradaxa. CT angiogram ruled out pulmonary embolism. There is bilateral multifocal and confluent groundglass opacities and organizing consolidation consistent with COVID-19 infection Objective - Vital Signs Vital signs: Vital Signs Temp 98.1 F 01/02/21 12:50 Pulse 67 01/02/21 12:50 Resp 22 01/02/21 12:50 BP 104/65 01/02/21 12:50 Pulse Ox 90 L 01/02/21 12:50 Intake & Output 01/01/21 01/02/21 01/02/21 18:59 06:59 18:59 Intake Total 360 10 415 Output Total 750 Balance 360 -740 415 Weight 83 kg Intake: IV 10 Invasive Line 2 10 Oral 360 415 Output: Urine 750 Other: Voiding Method Urinal Urinal # Voids 1 - Exam GENERAL EXAM: Alert, pleasant 55-year-old, on AirVo high flow oxygen at 55 L and 80% FiO2, fairly comfortable in no apparent distress. HEAD: Normocephalic. EYES: Normal reaction of pupils, equal size. NOSE: Clear with pink turbinates. THROAT: No erythema or exudates. NECK: No masses, no JVD. CHEST: No chest wall deformity. LUNGS: Equal air entry with coarse crackles in the posterior bases CVS: S1 and S2 normal with no audible murmur, regular rhythm. ABDOMEN: No hepatosplenomegaly, normal bowel sounds, no guarding or rigidity. SPINE: No scoliosis or deformity SKIN: No rashes CENTRAL NERVOUS SYSTEM: No focal deficits, tone is normal in all 4 extremities. EXTREMITIES: There is no peripheral edema. No clubbing, no cyanosis. Peripheral pulses are intact. - Labs CBC & Chem 7: 01/02/21 08:26 01/02/21 08:26 Labs: Abnormal Lab Results - Last 24 Hours (Table) 12/31/20 01/01/21 01/02/21 Range/Units 15:00 20:03 06:10 Hct (39.0-53.0) % Lymphocytes # (1.0-4.8) k/uL D-Dimer (<0.60) mg/L FEU BUN (9-20) mg/dL Glucose (74-99) mg/dL POC Glucose (mg/dL) 237 H 198 H (75-99) mg/dL Magnesium (1.6-2.3) mg/dL Lactate Dehydrogenase (313-618) U/L Coronavirus (PCR) Detected A (Not Detected) 01/02/21 01/02/21 01/02/21 Range/Units 08:26 08:26 08:26 Hct 38.5 L (39.0-53.0) % Lymphocytes # 0.4 L (1.0-4.8) k/uL D-Dimer 1.83 H (<0.60) mg/L FEU BUN 21 H (9-20) mg/dL Glucose 187 H (74-99) mg/dL POC Glucose (mg/dL) (75-99) mg/dL Magnesium 2.6 H (1.6-2.3) mg/dL Lactate Dehydrogenase 1372 H (313-618) U/L Coronavirus (PCR) (Not Detected) 01/02/21 Range/Units 12:03 Hct (39.0-53.0) % Lymphocytes # (1.0-4.8) k/uL D-Dimer (<0.60) mg/L FEU BUN (9-20) mg/dL Glucose (74-99) mg/dL POC Glucose (mg/dL) 175 H (75-99) mg/dL Magnesium (1.6-2.3) mg/dL Lactate Dehydrogenase (313-618) U/L Coronavirus (PCR) (Not Detected) Assessment and Plan Assessment: 1 Acute hypoxemic respiratory failure secondary to coronavirus pneumonia. Initiated on Baricitinib 01/03/2000 2 History of diabetes mellitus. 3 History of hypertension. 4 History of coronary artery disease. On pradaxa. 5 History of myocardial infarction. 6 History of hyperlipidemia. Plan: The patient was seen and evaluated by Dr. Lopez CT angiogram ruled out pulmonary embolism Coronavirus tested positive here Initiated on Baricitinib DC Decadron, initiate IV Solu-Medrol 60 mg every 6 hours Continue bronchodilators, vitamin supplements Titrate down the FiO2 as tolerated Prognosis is guarded We will continue to follow I, the cosigning physician, performed a history & physical examination of the patient. Lungs sounds with coarse crackles in the posterior bases. Maintaining good O2 saturations in the 90s on AirVo 55L and 80% FiO2. I discussed the assessment and plan of care with my nurse practitioner, Reena Morgan. I attest to the above note as dictated by her.
--- NOTE | 2021-01-02 14:51 | P.PN ---
Subjective no significant improvement compared to yesterday. Objective - Vital Signs Vital signs: Vital Signs Temp 98.1 F 01/02/21 12:50 Pulse 67 01/02/21 12:50 Resp 22 01/02/21 12:50 BP 104/65 01/02/21 12:50 Pulse Ox 90 L 01/02/21 12:50 Intake & Output 01/01/21 01/02/21 01/02/21 18:59 06:59 18:59 Intake Total 360 10 755 Output Total 750 Balance 360 -740 755 Weight 83 kg Intake: IV 10 Invasive Line 2 10 Oral 360 755 Output: Urine 750 Other: Voiding Method Urinal Urinal # Voids 1 1 - Exam General: The patient is awake and alert, in no distress Eye: there is normal conjunctiva bilaterally. Neck: The neck is supple, there is no JVD. Cardiovascular: Normal S1-S2, no S3-S4, no murmurs. Respiratory: Lungs clear to auscultation bilaterally Gastrointestinal: Abdomen is soft, nontender Musculoskeletal: There is no pedal edema. Neurological:. Speech is normal. Skin: Skin is warm and dry - Labs CBC & Chem 7: 01/02/21 08:26 01/02/21 08:26 Labs: Abnormal Lab Results - Last 24 Hours (Table) 12/31/20 01/01/21 01/02/21 Range/Units 15:00 20:03 06:10 Hct (39.0-53.0) % Lymphocytes # (1.0-4.8) k/uL D-Dimer (<0.60) mg/L FEU BUN (9-20) mg/dL Glucose (74-99) mg/dL POC Glucose (mg/dL) 237 H 198 H (75-99) mg/dL Magnesium (1.6-2.3) mg/dL Lactate Dehydrogenase (313-618) U/L Coronavirus (PCR) Detected A (Not Detected) 01/02/21 01/02/21 01/02/21 Range/Units 08:26 08:26 08:26 Hct 38.5 L (39.0-53.0) % Lymphocytes # 0.4 L (1.0-4.8) k/uL D-Dimer 1.83 H (<0.60) mg/L FEU BUN 21 H (9-20) mg/dL Glucose 187 H (74-99) mg/dL POC Glucose (mg/dL) (75-99) mg/dL Magnesium 2.6 H (1.6-2.3) mg/dL Lactate Dehydrogenase 1372 H (313-618) U/L Coronavirus (PCR) (Not Detected) 01/02/21 Range/Units 12:03 Hct (39.0-53.0) % Lymphocytes # (1.0-4.8) k/uL D-Dimer (<0.60) mg/L FEU BUN (9-20) mg/dL Glucose (74-99) mg/dL POC Glucose (mg/dL) 175 H (75-99) mg/dL Magnesium (1.6-2.3) mg/dL Lactate Dehydrogenase (313-618) U/L Coronavirus (PCR) (Not Detected) Assessment and Plan Assessment: This is a 55-year-old male with past medical history noted below who presented to the emergency room as a transfer from outside hospital for further management of this is a 55-year-old male with past medical history noted below who presented to the emergency room from outside hospital for further management of his medical problems noted below 1. COVID-19 pneumonitis: In unvaccinated patient. Symptoms onset over 10 days ago prior to presentation. Currently on steroids. Patient was seen and evaluated by pulmonary. Continue vitamins as ordered. 2. Acute hypoxic respiratory failure requiring high flow oxygen 80% FiO2 3. Chronic medical problems: Coronary artery disease, hypertension, type 2 diabetes, hyperlipidemia CT angiogram negative for PE. Continue supportive care. Appreciate pulmonary recommendations. Wean off O2 as tolerated.
[2021-01-02 17:15] LABS: Glucose,Whole Blood 251 mg/dL (75-99)
[2021-01-02 18:07] LABS: Ferritin 1534.9 ng/mL (22.0-322.0)
[2021-01-02 21:24] LABS: Glucose,Whole Blood 257 mg/dL (75-99)
[2021-01-03 06:13] LABS: Glucose,Whole Blood 291 mg/dL (75-99)
[2021-01-03] MEDS: INSULIN ASPART (NovoLOG) 100 UNIT/ML VIAL SQ SCH ×4 (06:44→21:12)
[2021-01-03] MEDS: PANTOPRAZOLE 40 MG TABLET PO SCH ×2 (06:44→17:06)
[2021-01-03] MEDS: methylPREDNISolone SOD SUCCI 125 MG/2 ML VIAL IV SCH ×3 (06:44→17:06)
[2021-01-03] MEDS: TICAGRELOR 90 MG TAB PO SCH ×2 (08:19→21:12)
[2021-01-03] MEDS: CHOLECALCIFEROL 25 MCG (1000 IU) TABLET PO SCH (08:19)
[2021-01-03] MEDS: INSULIN DETEMIR (LEVEMIR) 100 UNIT/ML SYR SQ SCH (08:19)
[2021-01-03] MEDS: LOSARTAN 25 MG TAB PO SCH (08:19)
[2021-01-03] MEDS: ZINC SULFATE 220 MG CAP PO SCH (08:19)
[2021-01-03] MEDS: ASCORBIC ACID 500 MG TAB PO SCH (08:19)
[2021-01-03] MEDS: EZETIMIBE 10 MG TAB PO SCH (08:20)
[2021-01-03] MEDS: NEBIVOLOL 5 MG TAB PO SCH (08:20)
[2021-01-03] MEDS: DABIGATRAN 150 MG CAP PO SCH ×2 (08:20→21:18)
[2021-01-03] MEDS: ALBUTEROL HFA INHALER INHALATION PRN ×2 (08:35→13:02)
[2021-01-03 12:02] LABS: Glucose,Whole Blood 245 mg/dL (75-99)
[2021-01-03] MEDS: BARICITINIB 2 MG TABLET PO SCH (12:36)
--- NOTE | 2021-01-03 13:12 | P.PN ---
Subjective Progress Note Date: 01/03/21 Principal diagnosis: COVID-19 pneumonia 56-year-old male, seen in the emergency room, on December 31. The patient has a history of diabetes and hypertension. He Presents to the emergency room complaining of shortness of breath. The patient was apparently transferred from [facility] and [place]. There he was apparently diagnosed with COVID pneumonia. The patient was diagnosed with bilateral pneumonia secondary to coronavirus. The patient was transferred down on BiPAP therapy. He was quite anxious. More recently, he was transitioned over to high flow nasal O2. He denied any chest pain or chest discomfort. There is no fever or chills. The patient has been having symptoms for at least 10 days and may be a bit longer. The patient has not received a coronavirus vaccine. Currently, the patient is on AIRVO, at 40 L/m and 55%. His saturations are in the low 90s. White count 2.43, hemoglobin 13.8, hematocrit 39.8, and platelet count 137,000. PT 10.4, INR 1, fibrinogen 524, PTT 25.1, and d-dimer 0.83. Sodium was 135, potassium 4, chloride 99, CO2 24, anion gap 12, BUN 28, creatinine 1. The patient's CK was 428. LDH was 647, and C-reactive protein was 7.9. Chest x-ray showed diffuse bilateral infiltrates. Currently, the patient's on albuterol inhaler, Decadron, Pradaxa, and his usual cardiac medications. Progress note dated 01/01/2021. This is a 56-year-old male, again seen in room 369. The patient has a history of diabetes and hypertension, and presented to the emergency department with shortness of breath. He was transferred down from [facility] in [place]. The patient apparently has been tested a couple times for coronavirus, and tested negative or inconclusive. He was retested here. The patient is being treated as if he has coronavirus pneumonia. Currently, he is on AIRVO. He was on 55 L/m and an FiO2 of 80%. The patient will be sent down on BiPAP for a CT angiogram. There is no new laboratory data today. The patient's major issue is shortness of breath and anxiety. The patient is seen today 01/02/2021 and follow-up on the selective care unit. He is currently resting fairly comfortably in bed. Still short of breath with minimal activity. Short of breath with conversation. He is currently on air bubble high flow oxygen at 55 L and 80% FiO2. He did test positive for the coronavirus by PCR here. White count 7.6. Hemoglobin 13.1. Lymphocytes 0.4. D-dimer 1.3. Sodium 139. Potassium 30.8. Creatinine 0.70. Glucose 187. He remains on DuoNeb inhalations, IV Solu-Medrol, vitamin supplements. Anticoagulated with Pradaxa. CT angiogram ruled out pulmonary embolism. There is bilateral multifocal and confluent groundglass opacities and organizing consolidation consistent with COVID-19 infection The patient is 01/03/2021 in follow-up on selective care unit. He is currently resting fairly comfortably in bed. Awake and alert in no acute distress. Continues with shortness of breath on exertion. He remains on air bubble at 55 L 88% FiO2 to maintain O2 saturations in the high 80s and low 90s. He is afebrile. Bradycardic. Blood glucose 245. He remains on DuoNeb inhalations, IV Solu-Medrol, vitamin supplements. Continued on Tessalon Perles. Anticoagulated with Pradaxa. He was initiated on Baricitinib yesterday. Objective - Vital Signs Vital signs: Vital Signs Temp 99.0 F 01/03/21 12:40 Pulse 53 L 01/03/21 12:40 Resp 18 01/03/21 12:40 BP 90/50 01/03/21 12:40 Pulse Ox 90 L 01/03/21 12:40 Intake & Output 01/02/21 01/03/21 01/03/21 18:59 06:59 18:59 Intake Total 995 10 360 Output Total 250 500 Balance 745 -490 360 Weight 82.5 kg Intake: IV 10 Invasive Line 2 10 Oral 995 360 Output: Urine 250 500 Other: Voiding Method Urinal Urinal Urinal # Voids 1 # Bowel Movements 1 1 - Exam GENERAL EXAM: Alert, pleasant 55-year-old, on AirVo high flow oxygen at 55 L and 88% FiO2, fairly comfortable in no apparent distress. HEAD: Normocephalic. EYES: Normal reaction of pupils, equal size. NOSE: Clear with pink turbinates. THROAT: No erythema or exudates. NECK: No masses, no JVD. CHEST: No chest wall deformity. LUNGS: Equal air entry with coarse crackles in the posterior bases CVS: S1 and S2 normal with no audible murmur, regular rhythm. ABDOMEN: No hepatosplenomegaly, normal bowel sounds, no guarding or rigidity. SPINE: No scoliosis or deformity SKIN: No rashes CENTRAL NERVOUS SYSTEM: No focal deficits, tone is normal in all 4 extremities. EXTREMITIES: There is no peripheral edema. No clubbing, no cyanosis. Peripheral pulses are intact. - Labs CBC & Chem 7: 01/02/21 08:26 01/02/21 08:26 Labs: Abnormal Lab Results - Last 24 Hours (Table) 01/02/21 01/02/21 01/02/21 Range/Units 08:26 17:13 21:21 POC Glucose (mg/dL) 251 H 257 H (75-99) mg/dL Ferritin 1534.9 H (22.0-322.0) ng/mL 01/03/21 01/03/21 Range/Units 06:03 12:01 POC Glucose (mg/dL) 291 H 245 H (75-99) mg/dL Ferritin (22.0-322.0) ng/mL Assessment and Plan Assessment: 1 Acute hypoxemic respiratory failure secondary to coronavirus pneumonia. Initiated on Baricitinib 01/02/2021. 2 History of diabetes mellitus. 3 History of hypertension. 4 History of coronary artery disease. 5 History of myocardial infarction. 6 History of hyperlipidemia. Plan: The patient was seen and evaluated by Dr. Lopez Continued on Baricitinib, Solu-Medrol, Pradaxa Continue bronchodilators, vitamin supplements Titrate down the FiO2 as tolerated Add incentive spirometer Prone while in bed Prognosis is guarded Follow-up chest x-ray and labs in a.m. We will continue to follow I, the cosigning physician, performed a history & physical examination of the patient. Lungs sounds with coarse crackles in the posterior bases. Maintaining good O2 saturations in the 90s on AirVo 55L and 88% FiO2. I discussed the assessment and plan of care with my nurse practitioner, Reena Morgan. I attest to the above note as dictated by her.
--- NOTE | 2021-01-03 13:50 | P.PN ---
Subjective Patient reported some improvement in his shortness of breath today. He told me that he was able to get out of bed earlier with minimal difficulty. He continues to require AirVo to maintain O2 sats greater than 90% Objective - Vital Signs Vital signs: Vital Signs Temp 99.0 F 01/03/21 12:40 Pulse 53 L 01/03/21 12:40 Resp 18 01/03/21 13:38 BP 90/50 01/03/21 12:40 Pulse Ox 90 L 01/03/21 12:40 Intake & Output 01/02/21 01/03/21 01/03/21 18:59 06:59 18:59 Intake Total 995 10 360 Output Total 250 500 Balance 745 -490 360 Weight 82.5 kg Intake: IV 10 Invasive Line 2 10 Oral 995 360 Output: Urine 250 500 Other: Voiding Method Urinal Urinal Urinal # Voids 1 # Bowel Movements 1 1 - Exam General: The patient is awake and alert, in no distress Eye: there is normal conjunctiva bilaterally. Neck: The neck is supple, there is no JVD. Cardiovascular: Normal S1-S2, no S3-S4, no murmurs. Respiratory: Lungs clear to auscultation bilaterally Gastrointestinal: Abdomen is soft, nontender Musculoskeletal: There is no pedal edema. Neurological:. Speech is normal. Skin: Skin is warm and dry - Labs CBC & Chem 7: 01/02/21 08:26 01/02/21 08:26 Labs: Abnormal Lab Results - Last 24 Hours (Table) 01/02/21 01/02/21 01/02/21 Range/Units 08:26 17:13 21:21 POC Glucose (mg/dL) 251 H 257 H (75-99) mg/dL Ferritin 1534.9 H (22.0-322.0) ng/mL 01/03/21 01/03/21 Range/Units 06:03 12:01 POC Glucose (mg/dL) 291 H 245 H (75-99) mg/dL Ferritin (22.0-322.0) ng/mL Assessment and Plan Assessment: This is a 55-year-old male with past medical history noted below who presented to the emergency room as a transfer from outside hospital for further management of this is a 55-year-old male with past medical history noted below who presented to the emergency room from outside hospital for further management of his medical problems noted below 1. COVID-19 pneumonitis: In unvaccinated patient. Symptoms onset over 10 days ago prior to presentation. Currently on steroids. Patient was seen and evaluated by pulmonary. Continue vitamins as ordered. 2. Acute hypoxic respiratory failure requiring AirVo 3. Chronic medical problems: Coronary artery disease, hypertension, type 2 diabetes, hyperlipidemia CT angiogram negative for PE. Continue supportive care. Appreciate pulmonary recommendations. Wean off O2 as tolerated.
[2021-01-03 16:54] LABS: Glucose,Whole Blood 180 mg/dL (75-99)
[2021-01-03 20:51] LABS: Glucose,Whole Blood 200 mg/dL (75-99)
[2021-01-04] MEDS: methylPREDNISolone SOD SUCCI 125 MG/2 ML VIAL IV SCH ×5 (00:22→23:37)
[2021-01-04 06:37] LABS: Glucose,Whole Blood 228 mg/dL (75-99)
[2021-01-04] MEDS: INSULIN ASPART (NovoLOG) 100 UNIT/ML VIAL SQ SCH ×4 (06:42→20:28)
[2021-01-04] MEDS: INSULIN DETEMIR (LEVEMIR) 100 UNIT/ML SYR SQ SCH (06:42)
[2021-01-04] MEDS: PANTOPRAZOLE 40 MG TABLET PO SCH ×2 (06:43→17:35)
--- NOTE | 2021-01-04 07:26 | XR ---
EXAMINATION TYPE: XR chest 1V portable DATE OF EXAM: 01/04/2021 CLINICAL HISTORY: Difficulty breathing progress study. COVID pneumonia. TECHNIQUE: Single AP portable semiupright view of the chest is obtained. COMPARISON: Chest x-ray from 4 days earlier. CTA chest 3 days ago. FINDINGS: Persistent low lung volumes and bilateral multifocal opacities greatest in the periphery. Cardiac silhouette size is stable and upper limits of normal. Osseous structures are intact. IMPRESSION: Bilateral multifocal opacities consistent with known covid-19 infection. No significant c hange from prior studies.
[2021-01-04] MEDS: TICAGRELOR 90 MG TAB PO SCH ×2 (08:53→20:28)
[2021-01-04] MEDS: DABIGATRAN 150 MG CAP PO SCH (08:53)
[2021-01-04] MEDS: ZINC SULFATE 220 MG CAP PO SCH (08:53)
[2021-01-04] MEDS: EZETIMIBE 10 MG TAB PO SCH (08:53)
[2021-01-04] MEDS: CHOLECALCIFEROL 25 MCG (1000 IU) TABLET PO SCH (08:53)
[2021-01-04] MEDS: NEBIVOLOL 5 MG TAB PO SCH (08:53)
[2021-01-04] MEDS: LOSARTAN 25 MG TAB PO SCH (08:54)
[2021-01-04] MEDS: ASCORBIC ACID 500 MG TAB PO SCH (08:54)
[2021-01-04] MEDS ORDERED: NICOTINE 14MG/24HR PATCH TRANSDERM SCH (09:00)
[2021-01-04] MEDS: ALBUTEROL HFA INHALER INHALATION PRN ×4 (09:14→20:44)
[2021-01-04 09:16] LABS: Basophils % (A) 0 %; Eosinophils % (A) 0 %; HCT 39.4 % (39.0-53.0); HGB 13.4 gm/dL (13.0-17.5); Lymphocytes # (A) 0.3 k/uL (1.0-4.8); Lymphocytes % (A) 4 %; MCH 28.7 pg (25.0-35.0); MCHC 33.9 g/dL (31.0-37.0); MCV 84.8 fL (80.0-100.0); Monocytes # (A) 0.2 k/uL (0-1.0); Monocytes % (A) 3 %; Neutrophils # (A) 7.3 k/uL (1.3-7.7); Neutrophils % (A) 92 %; Platelet Count 276 k/uL (150-450); RBC 4.65 m/uL (4.30-5.90); RDW 13.7 % (11.5-15.5)
[2021-01-04 09:22] LABS: African American GFR (CKD) >90 (>60 ml/min/1.73 sqM); Anion Gap 9 mmol/L; Blood Urea Nitrogen 38 mg/dL (9-20); C Reactive Protein 1.9 mg/dL (<1.0); Calcium 8.7 mg/dL (8.4-10.2); Carbon Dioxide 24 mmol/L (22-30); Chloride 106 mmol/L (98-107); Glucose 236 mg/dL (74-99); LDH 1165 U/L (313-618); Non-African American GFR(CKD) >90 (>60 ml/min/1.73 sqM); Potassium 4.2 mmol/L (3.5-5.1); Sodium 139 mmol/L (137-145)
--- NOTE | 2021-01-04 11:42 | P.PN ---
Subjective Progress Note Date: 01/04/21 56-year-old male, seen in the emergency room, on December 31. The patient has a history of diabetes and hypertension. He Presents to the emergency room complaining of shortness of breath. The patient was apparently transferred from [facility] and [place]. There he was apparently diagnosed with COVID pneumonia. The patient was diagnosed with bilateral pneumonia secondary to coronavirus. The patient was transferred down on BiPAP therapy. He was quite anxious. More recently, he was transitioned over to high flow nasal O2. He denied any chest pain or chest discomfort. There is no fever or chills. The patient has been having symptoms for at least 10 days and may be a bit longer. The patient has not received a coronavirus vaccine. Currently, the patient is on AIRVO, at 40 L/m and 55%. His saturations are in the low 90s. White count 2.43, hemoglobin 13.8, hematocrit 39.8, and platelet count 137,000. PT 10.4, INR 1, fibrinogen 524, PTT 25.1, and d-dimer 0.83. Sodium was 135, potassium 4, chloride 99, CO2 24, anion gap 12, BUN 28, creatinine 1. The patient's CK was 428. LDH was 647, and C-reactive protein was 7.9. Chest x-ray showed diffuse bilateral infiltrates. Currently, the patient's on albuterol inhaler, Decadron, Pradaxa, and his usual cardiac medications. Progress note dated 01/01/2021. This is a 56-year-old male, again seen in room 369. The patient has a history of diabetes and hypertension, and presented to the emergency department with sh ortness of breath. He was transferred down from [facility] in [place]. The patient apparently has been tested a couple times for coronavirus, and tested negative or inconclusive. He was retested here. The patient is being treated as if he has coronavirus pneumonia. Currently, he is on AIRVO. He was on 55 L/m and an FiO2 of 80%. The patient will be sent down on BiPAP for a CT angiogram. There is no new laboratory data today. The patient's major issue is shortness of breath and anxiety. The patient is seen today 01/02/2021 and follow-up on the selective care unit. He is currently resting fairly comfortably in bed. Still short of breath with minimal activity. Short of breath with conversation. He is currently on air bubble high flow oxygen at 55 L and 80% FiO2. He did test positive for the coronavirus by PCR here. White count 7.6. Hemoglobin 13.1. Lymphocytes 0.4. D-dimer 1.3. Sodium 139. Potassium 30.8. Creatinine 0.70. Glucose 187. He remains on DuoNeb inhalations, IV Solu-Medrol, vitamin supplements. Anticoagulated with Pradaxa. CT angiogram ruled out pulmonary embolism. There is bilateral multifocal and confluent groundglass opacities and organizing consolidation consistent with COVID-19 infection The patient is 01/03/2021 in follow-up on selective care unit. He is currently resting fairly comfortably in bed. Awake and alert in no acute distress. Continues with shortness of breath on exertion. He remains on air bubble at 55 L 88% FiO2 to maintain O2 saturations in the high 80s and low 90s. He is afebrile. Bradycardic. Blood glucose 245. He remains on DuoNeb inhalations, IV Solu-Medrol, vitamin supplements. Continued on Tessalon Perles. Anticoagulated with Pradaxa. He was initiated on Baricitinib yesterday. 2020, the patient clinically is feeling better. However, his oxidation is unchanged. He is still requiring high flow oxygen at 55 L with an FiO2 of 90%. Unable to fully extend his lungs with deep breathing because of persistent cough which is a dry cough. He is afebrile. His hemodynamically stable. D-dimer came up today and the liver from today was 34. Note that the patient takes Pradaxa on outpatient basis for long-term anticoagulation regarding previous history of vascular intervention is done in the lower extremities which was complicated by clotting. I believe this was a arterial intervention. The patient is also known to have COPD and previous myocardial infarction. In any rate, the patient has been on a combination of brillinta/pradaxa on outpatient basis. For now he is also on steroids and he is taking IV Solu-Medrol and he was started on Baricitinib . He is also on multivitamins. His taken Tessalon Perles for cough and. Blood sugar today's at 236 and the patient is diabetic. LDH level is 1165 and a CRP level is down to 1.9. No other issues otherwise for now. He is hemodynamically stable. Objective - Vital Signs Vital signs: Vital Signs Temp 98.0 F 01/04/21 08:00 Pulse 57 L 01/04/21 08:00 Resp 18 01/04/21 08:00 BP 96/58 01/04/21 08:00 Pulse Ox 91 L 01/04/21 09:14 Intake & Output 01/03/21 01/04/21 01/04/21 18:59 06:59 18:59 Intake Total 840 240 Output Total 250 650 Balance 590 -650 240 Weight 82 kg Intake: Oral 840 240 Output: Urine 250 650 Other: Voiding Method Urinal Urinal # Voids 1 - Exam GENERAL EXAM: Alert, pleasant 55-year-old, on AirVo high flow oxygen at 55 L and 88% FiO2, fairly comfortable in no apparent distress. HEAD: Normocephalic. EYES: Normal reaction of pupils, equal size. NOSE: Clear with pink turbinates. THROAT: No erythema or exudates. NECK: No masses, no JVD. CHEST: No chest wall deformity. LUNGS: Equal air entry with coarse crackles in the posterior bases CVS: S1 and S2 normal with no audible murmur, regular rhythm. ABDOMEN: No hepatosplenomegaly, normal bowel sounds, no guarding or rigidity. SPINE: No scoliosis or deformity SKIN: No rashes CENTRAL NERVOUS SYSTEM: No focal deficits, tone is normal in all 4 extremities. EXTREMITIES: There is no peripheral edema. No clubbing, no cyanosis. Peripheral pulses are intact. - Labs CBC & Chem 7: 01/04/21 07:44 01/04/21 07:54 Labs: Abnormal Lab Results - Last 24 Hours (Table) 01/03/21 01/03/21 01/03/21 Range/Units 12:01 16:51 20:04 Lymphocytes # (1.0-4.8) k/uL D-Dimer (<0.60) mg/L FEU BUN (9-20) mg/dL Glucose (74-99) mg/dL POC Glucose (mg/dL) 245 H 180 H 200 H (75-99) mg/dL Lactate Dehydrogenase (313-618) U/L C-Reactive Protein (<1.0) mg/dL 0901/04/21 01/04/21 Range/Units 06:35 07:44 07:44 Lymphocytes # 0.3 L (1.0-4.8) k/uL D-Dimer >34.10 H (<0.60) mg/L FEU BUN (9-20) mg/dL Glucose (74-99) mg/dL POC Glucose (mg/dL) 228 H (75-99) mg/dL Lactate Dehydrogenase (313-618) U/L C-Reactive Protein (<1.0) mg/dL 01/04/21 Range/Units 07:54 Lymphocytes # (1.0-4.8) k/uL D-Dimer (<0.60) mg/L FEU BUN 38 H (9-20) mg/dL Glucose 236 H (74-99) mg/dL POC Glucose (mg/dL) (75-99) mg/dL Lactate Dehydrogenase 1165 H (313-618) U/L C-Reactive Protein 1.9 H (<1.0) mg/dL Assessment and Plan Plan: 1 Acute hypoxemic respiratory failure secondary to coronavirus pneumonia. Initiated on Baricitinib 01/02/2021. Consistent with diffuse bilateral pulmonary infiltrates and the patient is currently on high flow oxygen at 55 L with an FiO2 of 90%. D-dimer is elevated. LDH and CRP are both elevated. 2 History of diabetes mellitus. 3 History of hypertension. 4 History of coronary artery disease. 5 History of myocardial infarction. 6 History of hyperlipidemia. Plan: Based on the elevated D dimers, I would suggest obtaining a Doppler of the lower extremity. Quite unlikely to have clotting special that the patient was on Pradaxa on outpatient basis and even during this current hospital stay. Continued on Baricitinib, Solu-Medrol, Pradaxa Continue bronchodilators, vitamin supplements Titrate down the FiO2 as tolerated Add incentive spirometer Prone while in bed Prognosis is guarded Follow-up chest x-ray and labs in a.m. We will continue to follow
[2021-01-04 12:23] LABS: Glucose,Whole Blood 237 mg/dL (75-99)
[2021-01-04] MEDS: BARICITINIB 2 MG TABLET PO SCH (13:04)
--- NOTE | 2021-01-04 13:26 | US ---
EXAMINATION TYPE: US venous doppler duplex LE DATE OF EXAM: 01/04/2021 1:08 PM COMPARISON: NONE CLINICAL HISTORY: Elevated d dimer, r/o DVT. Bilateral leg swelling SIDE PERFORMED: Bilateral TECHNIQUE: The lower extremity deep venous system is examined utilizing real time linear array sonog melyssa with graded compression, doppler sonography and color-flow sonography. VESSELS IMAGED: Common Femoral Vein Deep Femoral Vein Greater Saphenous Vein * Femoral Vein Popliteal Vein Small Saphenous Vein * Proximal Calf Veins (* superficial vessels) Right Leg: Positive for DVT Left Leg: Negative for DVT DVT seen from Right CFV- Right POP V Grayscale, color doppler, spectral doppler imaging performed of the deep veins of the bilateral lower extremities. IMPRESSION: Long segment completely occlusive acute DVT from right groin extends below the level of right knee. No left-sided acute DVT noted.
--- NOTE | 2021-01-04 13:46 | P.PN ---
Subjective Patient is stable compared to yesterday. No changes. He continues to require AirVo to maintain O2 sats greater than 90% Objective - Vital Signs Vital signs: Vital Signs Temp 98.0 F 01/04/21 08:00 Pulse 60 01/04/21 12:00 Resp 20 01/04/21 12:00 BP 104/60 01/04/21 12:00 Pulse Ox 93 L 01/04/21 12:27 Intake & Output 01/03/21 01/04/21 01/04/21 18:59 06:59 18:59 Intake Total 840 240 Output Total 250 650 Balance 590 -650 240 Weight 82 kg Intake: Oral 840 240 Output: Urine 250 650 Other: Voiding Method Urinal Urinal # Voids 1 0 # Bowel Movements 0 - Exam General: The patient is awake and alert, in no distress Eye: there is normal conjunctiva bilaterally. Neck: The neck is supple, there is no JVD. Cardiovascular: Normal S1-S2, no S3-S4, no murmurs. Respiratory: Lungs clear to auscultation bilaterally Gastrointestinal: Abdomen is soft, nontender Musculoskeletal: There is no pedal edema. Neurological:. Speech is normal. Skin: Skin is warm and dry - Labs CBC & Chem 7: 01/04/21 07:44 01/04/21 07:54 Labs: Abnormal Lab Results - Last 24 Hours (Table) 01/03/21 01/03/21 01/04/21 Range/Units 16:51 20:04 06:35 Lymphocytes # (1.0-4.8) k/uL D-Dimer (<0.60) mg/L FEU BUN (9-20) mg/dL Glucose (74-99) mg/dL POC Glucose (mg/dL) 180 H 200 H 228 H (75-99) mg/dL Lactate Dehydrogenase (313-618) U/L C-Reactive Protein (<1.0) mg/dL 01/04/21 01/04/21 01/04/21 Range/Units 07:44 07:44 07:54 Lymphocytes # 0.3 L (1.0-4.8) k/uL D-Dimer >34.10 H (<0.60) mg/L FEU BUN 38 H (9-20) mg/dL Glucose 236 H (74-99) mg/dL POC Glucose (mg/dL) (75-99) mg/dL Lactate Dehydrogenase 1165 H (313-618) U/L C-Reactive Protein 1.9 H (<1.0) mg/dL 01/04/21 Range/Units 12:19 Lymphocytes # (1.0-4.8) k/uL D-Dimer (<0.60) mg/L FEU BUN (9-20) mg/dL Glucose (74-99) mg/dL POC Glucose (mg/dL) 237 H (75-99) mg/dL Lactate Dehydrogenase (313-618) U/L C-Reactive Protein (<1.0) mg/dL Assessment and Plan Assessment: This is a 55-year-old male with past medical history noted below who presented to the emergency room as a transfer from outside hospital for further management of his medical problems noted below 1. COVID-19 pneumonitis: In unvaccinated patient. Symptoms onset over 10 days ago prior to presentation. Currently on steroids. Patient was seen and evaluated by pulmonary. Continue vitamins as ordered. 2. Acute hypoxic respiratory failure requiring AirVo 3. Chronic medical problems: Coronary artery disease, hypertension, type 2 diabetes, hyperlipidemia CT angiogram negative for PE. Continue supportive care. Appreciate pulmonary recommendations. Wean off O2 as tolerated.
[2021-01-04] MEDS ORDERED: HEPARIN SODIUM 1,000 UN/ML (10ML VL) IV PRN (13:49)
--- NOTE | 2021-01-04 16:07 | P.GSCN ---
History of Present Illness Consult date: 01/04/21 Reason for Consult: Occluded DVT History of present illness: This a 55-year-old who presented to the emergency department 4 days ago with complaints of shortness of breath as a transfer from an outside hospital for Covid pneumonia. He has a past medical history of coronary artery disease, diabetes, and hypertension. The CTA of the chest that showed suboptimal study without acute pulmonary embolism. Bilateral multifocal and confluent jody undglass opacities and organizing consolidations consistent with COVID-19 infection are noted. Apparently the patient was having some right lower extremity swelling and patient had a positive d-dimer so he underwent a lower extremity Doppler ultrasound which was positive for right lower extremity DVT. Impression states long segment completely occlusive acute DVT from right groin extends below the level of the right knee. No left-sided acute DVT noted. Vascular surgery was consulted for further evaluation. Apparently the patient was previously on Pradaxa and Brilinta. He also states he has a history of peripheral arterial disease status post revascularization. He denies any severe pain in his right lower extremity. Patient is on high flow oxygen. Review of Systems A fourteen point review of system completed, all pertinent positives and negatives as stated in the HPI. Past Medical History Past Medical History: Diabetes Mellitus, Myocardial Infarction ([place]) Last Myocardial Infarction Date:: 10/21/2013 History of Any Multi-Drug Resistant Organisms: None Reported Additional Past Surgical History / Comment(s): Stent in 2013, one stent in each leg one in 2018 and the other in 2019 Past Psychological History: No Psychological Hx Reported Smoking Status: Never smoker Past Alcohol Use History: None Reported Past Drug Use History: None Reported - Past Family History Family Family Medical History: No Reported History Medications and Allergies Home Medications Medication Instructions Recorded Confirmed Type Dabigatran [Pradaxa] 150 mg PO BID 12/31/20 12/31/20 History Empagliflozin [Jardiance] 10 mg PO DAILY 12/31/20 12/31/20 History Ezetimibe [Zetia] 10 mg PO DAILY 12/31/20 12/31/20 History Nebivolol HCl [Bystolic] 10 mg PO DAILY 12/31/20 12/31/20 History Nitroglycerin [Nitroglycerin 1 spray SUBLINGUAL Q5M PRN 12/31/20 12/31/20 History 400MCG [place]] Olmesartan Medoxomil 5 mg PO DAILY 12/31/20 12/31/20 History Omeprazole [PriLOSEC] 40 mg PO DAILY 12/31/20 12/31/20 History Ticagrelor [Brilinta] 90 mg PO BID 12/31/20 12/31/20 History metFORMIN HCL [Glucophage] 500 mg PO BID 12/31/20 12/31/20 History Allergies Allergy/AdvReac Type Severity Reaction Status Date / Time aspirin Allergy Anaphylaxis Verified 12/31/20 07:12 Surgical - Exam Vital Signs Temp Pulse Resp BP Pulse Ox 98.5 F 77 18 106/77 99 12/31/20 00:48 12/31/20 00:48 12/31/20 00:48 12/31/20 00:48 12/31/20 00:48 General appearance: The patient is alert, oriented, appears in no acute distress. HET: Head is normocephalic and atraumatic. Neck: Supple without lymphadenopathy. Trachea midline. Heart: S1 S2. Regular rate and rhythm. Lungs: Crackles bilaterally Abdomen: Soft, nontender, nondistended. Extremities: Normal skin color and turgor. Right lower extremity edema. Palpable bilateral dorsalis pedis and posterior tibialis pulses. Good capillary refill and warm to touch. Neurological: No focal deficits. Alert and oriented 3. Results - Labs 01/04/21 07:44 01/04/21 07:54 Abnormal Lab Results - Last 24 Hours (Table) 01/03/21 01/03/21 01/04/21 Range/Units 16:51 20:04 06:35 Lymphocytes # (1.0-4.8) k/uL D-Dimer (<0.60) mg/L FEU BUN (9-20) mg/dL Glucose (74-99) mg/dL POC Glucose (mg/dL) 180 H 200 H 228 H (75-99) mg/dL Lactate Dehydrogenase (313-618) U/L C-Reactive Protein (<1.0) mg/dL 01/04/21 01/04/21 01/04/21 Range/Units 07:44 07:44 07:54 Lymphocytes # 0.3 L (1.0-4.8) k/uL D-Dimer >34.10 H (<0.60) mg/L FEU BUN 38 H (9-20) mg/dL Glucose 236 H (74-99) mg/dL POC Glucose (mg/dL) (75-99) mg/dL Lactate Dehydrogenase 1165 H (313-618) U/L C-Reactive Protein 1.9 H (<1.0) mg/dL 01/04/21 Range/Units 12:19 Lymphocytes # (1.0-4.8) k/uL D-Dimer (<0.60) mg/L FEU BUN (9-20) mg/dL Glucose (74-99) mg/dL POC Glucose (mg/dL) 237 H (75-99) mg/dL Lactate Dehydrogenase (313-618) U/L C-Reactive Protein (<1.0) mg/dL Diabetes panel 01/04/21 Range/Units 07:54 Sodium 139 (137-145) mmol/L Potassium 4.2 (3.5-5.1) mmol/L Chloride 106 (98-107) mmol/L Carbon Dioxide 24 (22-30) mmol/L BUN 38 H (9-20) mg/dL Creatinine 0.86 (0.66-1.25) mg/dL Glucose 236 H (74-99) mg/dL Calcium 8.7 (8.4-10.2) mg/dL Calcium panel 01/04/21 Range/Units 07:54 Calcium 8.7 (8.4-10.2) mg/dL Pituitary panel 01/04/21 Range/Units 07:54 Sodium 139 (137-145) mmol/L Potassium 4.2 (3.5-5.1) mmol/L Chloride 106 (98-107) mmol/L Carbon Dioxide 24 (22-30) mmol/L BUN 38 H (9-20) mg/dL Creatinine 0.86 (0.66-1.25) mg/dL Glucose 236 H (74-99) mg/dL Calcium 8.7 (8.4-10.2) mg/dL Adrenal panel 01/04/21 Range/Units 07:54 Sodium 139 (137-145) mmol/L Potassium 4.2 (3.5-5.1) mmol/L Chloride 106 (98-107) mmol/L Carbon Dioxide 24 (22-30) mmol/L BUN 38 H (9-20) mg/dL Creatinine 0.86 (0.66-1.25) mg/dL Glucose 236 H (74-99) mg/dL Calcium 8.7 (8.4-10.2) mg/dL - Imaging Comments: Venous Doppler bilateral lower extremities: long segment completely occlusive acute DVT from right groin extends below the level of the right knee. No left- sided acute DVT noted. Assessment and Plan Assessment: 1. Occluded acute DVT from right groin extending below the level of the right knee. 2. Covid-19 penumonitis 3. History of peripheral arterial disease status post revascularization 4. History of coronary artery disease Plan: 1. CTA abdomen and pelvis venous phase ordered 2. Agree with Heparin drip 3. Consult hematology for recommendations on anticoagulation, patient currently on Brilinta and Pradaxa 4. Further recommendations to follow Thank you for this consultation, we will continue to follow. The impression and plan of care has been dictated as directed. Dr. Thomas I performed a history and examination of this patient, discussed the same with the dictator. I agree with the dictator's note ,documented as a scribe. Any additional findings or plans will be noted.
[2021-01-04 16:15] LABS: INR 1.2 (<1.2); Partial Thromboplastin Time 25.3 sec (22.0-30.0); Prothrombin Time 12.2 sec (9.0-12.0)
[2021-01-04] MEDS: HEPARIN SOD,PORK IN 0.45% NACL 25,000 UNIT in 0.45% NACL 1 250ML.BAG IV SCH (16:33)
[2021-01-04 17:30] LABS: Glucose,Whole Blood 247 mg/dL (75-99)
--- NOTE | 2021-01-04 17:41 | CT ---
EXAMINATION TYPE: CT angio abdomen pelvis DATE OF EXAM: 01/04/2021 COMPARISON: None HISTORY: occlusive DVT iliac vein CT DLP: 1571.4 mGycm Automated exposure control for dose reduction was used. CONTRAST: Performed without and with IV Contrast, patient injected with 100 mL of Isovue 370. Images obtained from the diaphragm to the floor the pelvis and 3-D post processed images. FINDINGS: There is patchy airspace consolidation and atelectasis at both posterior lung bases. Heart size is santos rderline enlarged. Gallbladder is contracted. Liver spleen stomach appear intact. The bile ducts are not dilated. There is no evidence of pancreatic mass. There is no adrenal mass. Kidneys show satisfactory contrast opacification. There is no hydronephrosi s. Ureters are not dilated. There is no retroperitoneal adenopathy. Bladder distends smoothly. There is no inguinal hernia. The images are delayed for evaluation of the venous structures. There are bila teral iliac vein stents. Unfortunately there is suboptimal contrast density in the iliac veins and th e iliac stents. There appears to be decreased attenuation in the right iliac stent compared to the le ft and is suspicious for thrombosis. Bladder distends smoothly with contrast. There is no pelvic mass. There is no mesenteric edema. There is no ascites or free air. There is no bowel obstruction. IMPRESSION: There is decreased enhancement in this suboptimal exam involving the right iliac stent compared to th e left. It is not clear if this is due to thrombus or due to slow flow in this patient with extensive deep vein thrombosis demonstrated by ultrasound today in the right leg. There is extensive infiltrate and atelectasis at the posterior lung bases. This appears similar to th e chest CT scan of 01/01/2021.
[2021-01-04 20:39] LABS: Glucose,Whole Blood 212 mg/dL (75-99)
[2021-01-05 06:07] LABS: Glucose,Whole Blood 219 mg/dL (75-99)
[2021-01-05] MEDS: methylPREDNISolone SOD SUCCI 125 MG/2 ML VIAL IV SCH ×4 (06:31→23:15)
[2021-01-05] MEDS: HEPARIN SOD,PORK IN 0.45% NACL 25,000 UNIT in 0.45% NACL 1 250ML.BAG IV SCH ×2 (06:31→23:15)
[2021-01-05] MEDS: INSULIN DETEMIR (LEVEMIR) 100 UNIT/ML SYR SQ SCH (06:32)
[2021-01-05] MEDS: INSULIN ASPART (NovoLOG) 100 UNIT/ML VIAL SQ SCH ×4 (06:32→20:20)
[2021-01-05] MEDS: PANTOPRAZOLE 40 MG TABLET PO SCH ×2 (06:33→18:31)
[2021-01-05] MEDS: LOSARTAN 25 MG TAB PO SCH (08:19)
[2021-01-05] MEDS: ZINC SULFATE 220 MG CAP PO SCH (08:19)
[2021-01-05] MEDS: ASCORBIC ACID 500 MG TAB PO SCH (08:19)
[2021-01-05] MEDS: TICAGRELOR 90 MG TAB PO SCH ×2 (08:19→20:20)
[2021-01-05] MEDS: CHOLECALCIFEROL 25 MCG (1000 IU) TABLET PO SCH (08:19)
[2021-01-05] MEDS: NEBIVOLOL 5 MG TAB PO SCH (08:20)
[2021-01-05] MEDS: EZETIMIBE 10 MG TAB PO SCH (08:20)
[2021-01-05] MEDS: ALBUTEROL HFA INHALER INHALATION PRN ×4 (09:09→20:49)
--- NOTE | 2021-01-05 10:51 | P.PN ---
Subjective No change in patient condition compared to yesterday. He does not have any specific complaints today. The right lower extremity swollen compared to the left. He continues to require AirVo to maintain O2 sats greater than 90% Objective - Vital Signs Vital signs: Vital Signs Temp 98.3 F 01/05/21 08:00 Pulse 62 01/05/21 08:00 Resp 26 H 01/05/21 08:00 BP 91/53 01/05/21 08:00 Pulse Ox 93 L 01/05/21 09:10 Intake & Output 01/04/21 01/05/21 01/05/21 18:59 06:59 18:59 Intake Total 598 174.209 21.32 Output Total 350 350 Balance 248 -175.791 21.32 Weight 81 kg Intake: Intake, IV Titration 174.209 21.32 Amount Heparin Sod,Pork in 0.45% 174.209 21.32 NaCl 25,000 unit In 0.45 % NaCl 1 250ml.bag @ 18 UNITS/KG/HR 14.76 mls/hr IV .[id number] [facility] Rx#: [id number] Oral 598 Output: Urine 350 350 Other: Voiding Method Urinal # Voids 2 # Bowel Movements 0 1 - Exam General: The patient is awake and alert, in no distress Eye: there is normal conjunctiva bilaterally. Neck: The neck is supple, there is no JVD. Cardiovascular: Normal S1-S2, no S3-S4, no murmurs. Respiratory: Lungs clear to auscultation bilaterally Gastrointestinal: Abdomen is soft, nontender Musculoskeletal: There is no pedal edema. The right lower extremity swollen compared to the left Neurological:. Speech is normal. Skin: Skin is warm and dry - Labs CBC & Chem 7: 01/04/21 07:44 01/04/21 07:54 Labs: Abnormal Lab Results - Last 24 Hours (Table) 01/04/21 01/04/21 01/04/21 Range/Units 12:19 15:56 17:19 PT 12.2 H (9.0-12.0) sec INR 1.2 H (<1.2) APTT (22.0-30.0) sec POC Glucose (mg/dL) 237 H 247 H (75-99) mg/dL 01/04/21 01/04/21 01/05/21 Range/Units 20:27 22:27 06:06 PT (9.0-12.0) sec INR (<1.2) APTT 117.9 H* (22.0-30.0) sec POC Glucose (mg/dL) 212 H 219 H (75-99) mg/dL 01/05/21 Range/Units 07:21 PT (9.0-12.0) sec INR (<1.2) APTT 92.3 H (22.0-30.0) sec POC Glucose (mg/dL) (75-99) mg/dL Assessment and Plan Assessment: This is a 55-year-old male with past medical history noted below who presented to the emergency room as a transfer from outside hospital for further management of his medical problems noted below 1. COVID-19 pneumonitis: In unvaccinated patient. Symptoms onset over 10 days ago prior to presentation. Currently on steroids and Olumiant day #4. Patient was seen and evaluated by pulmonary. Continue vitamins as ordered. 2. Acute hypoxic respiratory failure requiring AirVo 3. Acute DVT involving right lower extremity, with long segment completely occlusive right groin extending to the level of the right knee. Patient was on anticoagulation with Pradaxa outpatient itch was continued while he is in the hospital. Patient failed Pradaxa and was transitioned to IV heparin drip. Hematology consulted for further evaluation. Hypercoagulable workup ordered. 4. Chronic medical problems: Coronary artery disease on antiplatelet therapy Brillenta , hypertension, type 2 diabetes, hyperlipidemia CT angiogram suboptimal study but negative for large PE. Continue supportive care. Appreciate pulmonary and vascular surgery recommendations. Wean off O2 as tolerated.
[2021-01-05 12:06] LABS: Glucose,Whole Blood 186 mg/dL (75-99)
[2021-01-05] MEDS: BARICITINIB 2 MG TABLET PO SCH (12:25)
--- NOTE | 2021-01-05 12:34 | P.PN ---
Subjective Progress Note Date: 01/05/21 56-year-old male, seen in the emergency room, on December 31. The patient has a history of diabetes and hypertension. He Presents to the emergency room complaining of shortness of breath. The patient was apparently transferred from [facility] and [place]. There he was apparently diagnosed with COVID pneumonia. The patient was diagnosed with bilateral pneumonia secondary to coronavirus. The patient was transferred down on BiPAP therapy. He was quite anxious. More recently, he was transitioned over to high flow nasal O2. He denied any chest pain or chest discomfort. There is no fever or chills. The patient has been having symptoms for at least 10 days and may be a bit longer. The patient has not received a coronavirus vaccine. Currently, the patient is on AIRVO, at 40 L/m and 55%. His saturations are in the low 90s. White count 2.43, hemoglobin 13.8, hematocrit 39.8, and platelet count 137,000. PT 10.4, INR 1, fibrinogen 524, PTT 25.1, and d-dimer 0.83. Sodium was 135, potassium 4, chloride 99, CO2 24, anion gap 12, BUN 28, creatinine 1. The patient's CK was 428. LDH was 647, and C-reactive protein was 7.9. Chest x-ray showed diffuse bilateral infiltrates. Currently, the patient's on albuterol inhaler, Decadron, Pradaxa, and his usual cardiac medications. Progress note dated 01/01/2021. This is a 56-year-old male, again seen in room 369. The patient has a history of diabetes and hypertension, and presented to the emergency department with sh ortness of breath. He was transferred down from [facility] in [place]. The patient apparently has been tested a couple times for coronavirus, and tested negative or inconclusive. He was retested here. The patient is being treated as if he has coronavirus pneumonia. Currently, he is on AIRVO. He was on 55 L/m and an FiO2 of 80%. The patient will be sent down on BiPAP for a CT angiogram. There is no new laboratory data today. The patient's major issue is shortness of breath and anxiety. The patient is seen today 01/02/2021 and follow-up on the selective care unit. He is currently resting fairly comfortably in bed. Still short of breath with minimal activity. Short of breath with conversation. He is currently on air bubble high flow oxygen at 55 L and 80% FiO2. He did test positive for the coronavirus by PCR here. White count 7.6. Hemoglobin 13.1. Lymphocytes 0.4. D-dimer 1.3. Sodium 139. Potassium 30.8. Creatinine 0.70. Glucose 187. He remains on DuoNeb inhalations, IV Solu-Medrol, vitamin supplements. Anticoagulated with Pradaxa. CT angiogram ruled out pulmonary embolism. There is bilateral multifocal and confluent groundglass opacities and organizing consolidation consistent with COVID-19 infection The patient is 01/03/2021 in follow-up on selective care unit. He is currently resting fairly comfortably in bed. Awake and alert in no acute distress. Continues with shortness of breath on exertion. He remains on air bubble at 55 L 88% FiO2 to maintain O2 saturations in the high 80s and low 90s. He is afebrile. Bradycardic. Blood glucose 245. He remains on DuoNeb inhalations, IV Solu-Medrol, vitamin supplements. Continued on Tessalon Perles. Anticoagulated with Pradaxa. He was initiated on Baricitinib yesterday. 2020, the patient clinically is feeling better. However, his oxidation is unchanged. He is still requiring high flow oxygen at 55 L with an FiO2 of 90%. Unable to fully extend his lungs with deep breathing because of persistent cough which is a dry cough. He is afebrile. His hemodynamically stable. D-dimer came up today and the liver from today was 34. Note that the patient takes Pradaxa on outpatient basis for long-term anticoagulation regarding previous history of vascular intervention is done in the lower extremities which was complicated by clotting. I believe this was a arterial intervention. The patient is also known to have COPD and previous myocardial infarction. In any rate, the patient has been on a combination of brillinta/pradaxa on outpatient basis. For now he is also on steroids and he is taking IV Solu-Medrol and he was started on Baricitinib . He is also on multivitamins. His taken Tessalon Perles for cough and. Blood sugar today's at 236 and the patient is diabetic. LDH level is 1165 and a CRP level is down to 1.9. No other issues otherwise for now. He is hemodynamically stable. 01/05/2021, seeing the patient for a follow-up. He remains essentially unchanged compared to yesterday. Her oxygenation has remained unchanged and he remains on high flow oxygen 55 L with an FiO2 of 90%. He is still having some dry cough. D-dimer was quite elevated and based on that we did further investigation. Doppler of the lower extremity was done and the findings were consistent with right popliteal DVT and there was a long segment of occlusion along with acute DVT of the right groin extending below the level of the right knee. No left-sided acute DVT was noted. Based on that, vascular surgery was consulted and the patient underwent a CT angiogram of the abdomen and pelvis to better visualize the arteries and veins extending to the lower extremities. The CT angiogram was completed and there was decreased enhancement and suboptimal contrast in the right iliac stent compared to the left. It was not clear if this was related to a thrombus or due to slow flow versus DVT in the involved vessel. In any rate, no further intervention was recommended and the patient was asked to continue with IV heparin. Obviously there is a concern for failure of his oral anticoagulants and vascular surgery is involved hematology on the case. Meanwhile, the patient is on steroids. He is currently on Solu-Medrol 60 mg every 6 hours and he is also on Baricitinib . His blood work from today shows a therapeutic PTT of 92. D-dimer was above 34 from yesterday. Electrodes were normal. LDH from yesterday was 1165 with a CRP level of 1.9. Hemodynamically stable. No pleurisy. No hemoptysis. Tolerating his diet. Using incentive spirometer. Objective - Vital Signs Vital signs: Vital Signs Temp 98.3 F 01/05/21 12:00 Pulse 56 L 01/05/21 12:00 Resp 24 01/05/21 12:00 BP 97/56 01/05/21 12:00 Pulse Ox 92 L 01/05/21 12:00 Intake & Output 01/04/21 01/05/21 01/05/21 18:59 06:59 18:59 Intake Total 598 174.209 171.32 Output Total 350 350 110 Balance 248 -175.791 61.32 Weight 81 kg Intake: Intake, IV Titration 174.209 21.32 Amount Heparin Sod,Pork in 0.45% 174.209 21.32 NaCl 25,000 unit In 0.45 % NaCl 1 250ml.bag @ 18 UNITS/KG/HR 14.76 mls/hr IV .[id number] [facility] Rx#: [id number] Oral 598 150 Output: Urine 350 350 110 Other: Voiding Method Urinal # Voids 2 # Bowel Movements 0 1 - Exam GENERAL EXAM: Alert, pleasant 55-year-old, on AirVo high flow oxygen at 55 L and 88% FiO2, fairly comfortable in no apparent distress. HEAD: Normocephalic. EYES: Normal reaction of pupils, equal size. NOSE: Clear with pink turbinates. THROAT: No erythema or exudates. NECK: No masses, no JVD. CHEST: No chest wall deformity. LUNGS: Equal air entry with coarse crackles in the posterior bases CVS: S1 and S2 normal with no audible murmur, regular rhythm. ABDOMEN: No hepatosplenomegaly, normal bowel sounds, no guarding or rigidity. SPINE: No scoliosis or deformity SKIN: No rashes CENTRAL NERVOUS SYSTEM: No focal deficits, tone is normal in all 4 extremities. EXTREMITIES: There is no peripheral edema. No clubbing, no cyanosis. P eripheral pulses are intact. - Labs CBC & Chem 7: 01/04/21 07:44 01/04/21 07:54 Labs: Abnormal Lab Results - Last 24 Hours (Table) 01/04/21 01/04/21 01/04/21 Range/Units 15:56 17:19 20:27 PT 12.2 H (9.0-12.0) sec INR 1.2 H (<1.2) APTT (22.0-30.0) sec POC Glucose (mg/dL) 247 H 212 H (75-99) mg/dL 01/04/21 01/05/21 01/05/21 Range/Units 22:27 06:06 07:21 PT (9.0-12.0) sec INR (<1.2) APTT 117.9 H* 92.3 H (22.0-30.0) sec POC Glucose (mg/dL) 219 H (75-99) mg/dL 01/05/21 Range/Units 12:03 PT (9.0-12.0) sec INR (<1.2) APTT (22.0-30.0) sec POC Glucose (mg/dL) 186 H (75-99) mg/dL Assessment and Plan Plan: 1 Acute hypoxemic respiratory failure secondary to coronavirus pneumonia. Initiated on Baricitinib 01/02/2021. Consistent with diffuse bilateral pulmonary infiltrates and the patient is currently on high flow oxygen at 55 L with an FiO2 of 90%. D-dimer is elevated. LDH and CRP are both elevated. 2 History of diabetes mellitus. 3 History of hypertension. 4 History of coronary artery disease. 5 History of myocardial infarction. 6 History of hyperlipidemia. 7 DVT involving the right lower extremity, failed anticoagulation with pradaxa 8 previous history of bilateral iliac vein/femoral vein stents. Plan: Continue anticoagulation with IV heparin Obtain a hematology consultation due to failure of anticoagulation with oral anticoagulants including Brilinta and pradaxa Continued on Baricitinib, Solu-Medrol Continue bronchodilators, vitamin supplements Titrate down the FiO2 as tolerated Add incentive spirometer Prone while in bed Prognosis is guarded Follow-up chest x-ray and labs in a.m. We will continue to follow
--- NOTE | 2021-01-05 13:00 | P.PN ---
Subjective Progress Note Date: 01/05/21 Patient Was seen and examined lying in bed. No acute changes through the night. Patient remains on IV heparin drip at this time. He had a CT angiogram of the abdomen and pelvis that showed decreased enhancement in this suboptimal exam involving the right iliac stent. To left. It is clear this is due to thrombus or due to slow flow in the patent shunt with extensive deep venous thrombosis demonstrated by ultrasound today in the right leg. Objective - Vital Signs Vital signs: Vital Signs Temp 98.3 F 01/05/21 08:00 Pulse 62 01/05/21 08:00 Resp 26 H 01/05/21 08:00 BP 91/53 01/05/21 08:00 Pulse Ox 94 L 01/05/21 08:00 Intake & Output 01/04/21 01/05/21 01/05/21 18:59 06:59 18:59 Intake Total 598 174.209 21.32 Output Total 350 350 Balance 248 -175.791 21.32 Weight 81 kg Intake: Intake, IV Titration 174.209 21.32 Amount Heparin Sod,Pork in 0.45% 174.209 21.32 NaCl 25,000 unit In 0.45 % NaCl 1 250ml.bag @ 18 UNITS/KG/HR 14.76 mls/hr IV .[id number] [facility] Rx#: [id number] Oral 598 Output: Urine 350 350 Other: Voiding Method Urinal # Voids 2 # Bowel Movements 0 1 - Exam General appearance: The patient is alert, oriented, in no acute distress. HET: Head is normocephalic and atraumatic. Pupils are equal and reactive. Oropharynx is clear without lesions. Extremities: Normal skin color and turgor. No cyanosis, rash, ulceration, clubbing. Right lower extremity with +1 edema. Bilateral dorsalis pedis and posterior tibialis pulses. Warm to the touch. Good capillary refill. Neurological: No focal deficits. Strength and sensation are grossly intact. - Labs CBC & Chem 7: 01/04/21 07:44 01/04/21 07:54 Labs: Abnormal Lab Results - Last 24 Hours (Table) 01/04/21 01/04/21 01/04/21 Range/Units 07:44 07:44 07:54 Lymphocytes # 0.3 L (1.0-4.8) k/uL PT (9.0-12.0) sec INR (<1.2) APTT (22.0-30.0) sec D-Dimer >34.10 H (<0.60) mg/L FEU BUN 38 H (9-20) mg/dL Glucose 236 H (74-99) mg/dL POC Glucose (mg/dL) (75-99) mg/dL Lactate Dehydrogenase 1165 H (313-618) U/L C-Reactive Protein 1.9 H (<1.0) mg/dL 01/04/21 01/04/21 01/04/21 Range/Units 12:19 15:56 17:19 Lymphocytes # (1.0-4.8) k/uL PT 12.2 H (9.0-12.0) sec INR 1.2 H (<1.2) APTT (22.0-30.0) sec D-Dimer (<0.60) mg/L FEU BUN (9-20) mg/dL Glucose (74-99) mg/dL POC Glucose (mg/dL) 237 H 247 H (75-99) mg/dL Lactate Dehydrogenase (313-618) U/L C-Reactive Protein (<1.0) mg/dL 01/04/21 01/04/21 01/05/21 Range/Units 20:27 22:27 06:06 Lymphocytes # (1.0-4.8) k/uL PT (9.0-12.0) sec INR (<1.2) APTT 117.9 H* (22.0-30.0) sec D-Dimer (<0.60) mg/L FEU BUN (9-20) mg/dL Glucose (74-99) mg/dL POC Glucose (mg/dL) 212 H 219 H (75-99) mg/dL Lactate Dehydrogenase (313-618) U/L C-Reactive Protein (<1.0) mg/dL 01/05/21 Range/Units 07:21 Lymphocytes # (1.0-4.8) k/uL PT (9.0-12.0) sec INR (<1.2) APTT 92.3 H (22.0-30.0) sec D-Dimer (<0.60) mg/L FEU BUN (9-20) mg/dL Glucose (74-99) mg/dL POC Glucose (mg/dL) (75-99) mg/dL Lactate Dehydrogenase (313-618) U/L C-Reactive Protein (<1.0) mg/dL Assessment and Plan Assessment: 1. Occluded acute DVT from right groin extending below the level of the right knee. 2. Covid-19 penumonitis 3. History of peripheral arterial disease status post revascularization 4. History of coronary artery disease Plan: 1. CTA abdomen and pelvis venous phase ordered and reviewed by Dr. Lozano 2. There is no indication for any vascular surgical intervention at this time, continue anticoagulation 3. Hematology consulted for recommendations on anticoagulation, patient was on Brilinta and Pradaxa outpatient Thank you for this consultation, we will be on standby, if further needed please do not hesitate to call us back. The impression and plan of care has been dictated as directed. Dr. Lozano I performed a history and examination of this patient, discussed the same with the dictator. I agree with the dictator's note ,documented as a scribe. Any additional findings or plans will be noted.
--- NOTE | 2021-01-05 16:58 | P.CONS ---
History of Present Illness - Reason for Consult Consult date: 01/05/21 Anticoagulation recommendations Requesting physician: Leanne Cortes - Chief Complaint covid - History of Present Illness Mr. Lincoln is a pleasant 55 yo male with covid 19 infection, symptomatic who we have been asked to see as he is positive for RLE DVT, CFV to popliteal is completely occluded, CTA of AP showing decreased attenuation at rt iliac stent, CTA neg for PE. He has a Hx of bilateral iliac vein stents, pt reports "clot" 1 year ago, he has been on pradaxa since. He never had swelling or pain in either leg, no prior Hx of clots, no family Hx of clots. He states that he noted swelling in his rt leg recently, persistent. He is on heparin drip, denies any bleeding. Review of Systems 10 point ROS is neg except as stated in HPI Past Medical History Past Medical History: Diabetes Mellitus, Myocardial Infarction (NE) Last Myocardial Infarction Date:: 10/21/2013 History of Any Multi-Drug Resistant Organisms: None Reported Additional Past Surgical History / Comment(s): Stent in 2013, one stent in each leg one in 2018 and the other in 2019 Past Psychological History: No Psychological Hx Reported Smoking Status: Never smoker Past Alcohol Use History: None Reported Past Drug Use History: None Reported - Past Family History Family Family Medical History: No Reported History Medications and Allergies Home Medications Medication Instructions Recorded Confirmed Type Dabigatran [Pradaxa] 150 mg PO BID 12/31/20 12/31/20 History Empagliflozin [Jardiance] 10 mg PO DAILY 12/31/20 12/31/20 History Ezetimibe [Zetia] 10 mg PO DAILY 12/31/20 12/31/20 History Nebivolol HCl [Bystolic] 10 mg PO DAILY 12/31/20 12/31/20 History Nitroglycerin [Nitroglycerin 1 spray SUBLINGUAL Q5M PRN 12/31/20 12/31/20 History 400MCG [place]] Olmesartan Medoxomil 5 mg PO DAILY 12/31/20 12/31/20 History Omeprazole [PriLOSEC] 40 mg PO DAILY 12/31/20 12/31/20 History Ticagrelor [Brilinta] 90 mg PO BID 12/31/20 12/31/20 History metFORMIN HCL [Glucophage] 500 mg PO BID 12/31/20 12/31/20 History Allergies Allergy/AdvReac Type Severity Reaction Status Date / Time aspirin Allergy Anaphylaxis Verified 12/31/20 07:12 Physical Exam Vitals: Vital Signs Temp Pulse Resp BP Pulse Ox 01/05/21 03:58 98.0 F 59 L 22 95/61 90 L 01/05/21 03:15 90 L 01/05/21 01:48 68 01/05/21 00:00 98.2 F 68 20 102/64 92 L 01/04/21 23:41 93 L 01/04/21 20:00 97.9 F 61 22 101/64 92 L 01/04/21 16:00 60 20 104/68 93 L 01/04/21 14:00 20 01/04/21 12:27 93 L 01/04/21 12:00 60 20 104/60 89 L 01/04/21 09:14 91 L Intake and Output 01/04/21 01/05/21 01/05/21 22:59 06:59 14:59 Intake Total 358 174.209 21.32 Output Total 600 100 Balance -242 74.209 21.32 Intake: Intake, IV Titration 174.209 21.32 Amount Heparin Sod,Pork in 0.45% 174.209 21.32 NaCl 25,000 unit In 0.45 % NaCl 1 250ml.bag @ 18 UNITS/KG/HR 14.76 mls/hr IV .[id number] [facility] Rx#: [id number] Oral 358 Output: Urine 600 100 Other: Voiding Method Urinal Urinal # Voids 2 # Bowel Movements 1 Weight 81 kg WDWN, NAD, A&Ox4, resp mildly labored at rest, exam deferred 2/2 covid infection - Constitutional General appearance: average body habitus, cooperative, no acute distress - EENT Eyes: anicteric sclerae, EOMI ENT: hearing grossly normal Results CBC & Chem 7: 01/04/21 07:44 01/04/21 07:54 Labs: Abnormal Lab Results - Last 24 Hours (Table) 01/04/21 01/04/21 01/04/21 Range/Units 07:44 07:44 07:54 Lymphocytes # 0.3 L (1.0-4.8) k/uL PT (9.0-12.0) sec INR (<1.2) APTT (22.0-30.0) sec D-Dimer >34.10 H (<0.60) mg/L FEU BUN 38 H (9-20) mg/dL Glucose 236 H (74-99) mg/dL POC Glucose (mg/dL) (75-99) mg/dL Lactate Dehydrogenase 1165 H (313-618) U/L C-Reactive Protein 1.9 H (<1.0) mg/dL 01/04/21 01/04/21 01/04/21 Range/Units 12:19 15:56 17:19 Lymphocytes # (1.0-4.8) k/uL PT 12.2 H (9.0-12.0) sec INR 1.2 H (<1.2) APTT (22.0-30.0) sec D-Dimer (<0.60) mg/L FEU BUN (9-20) mg/dL Glucose (74-99) mg/dL POC Glucose (mg/dL) 237 H 247 H (75-99) mg/dL Lactate Dehydrogenase (313-618) U/L C-Reactive Protein (<1.0) mg/dL 01/04/21 01/04/21 01/05/21 Range/Units 20:27 22:27 06:06 Lymphocytes # (1.0-4.8) k/uL PT (9.0-12.0) sec INR (<1.2) APTT 117.9 H* (22.0-30.0) sec D-Dimer (<0.60) mg/L FEU BUN (9-20) mg/dL Glucose (74-99) mg/dL POC Glucose (mg/dL) 212 H 219 H (75-99) mg/dL Lactate Dehydrogenase (313-618) U/L C-Reactive Protein (<1.0) mg/dL 01/05/21 Range/Units 07:21 Lymphocytes # (1.0-4.8) k/uL PT (9.0-12.0) sec INR (<1.2) APTT 92.3 H (22.0-30.0) sec D-Dimer (<0.60) mg/L FEU BUN (9-20) mg/dL Glucose (74-99) mg/dL POC Glucose (mg/dL) (75-99) mg/dL Lactate Dehydrogenase (313-618) U/L C-Reactive Protein (<1.0) mg/dL Chest x-ray: report reviewed CT scan - abdomen: report reviewed CT scan - chest: report reviewed CT scan - pelvis: report reviewed Venous US: report reviewed Assessment and Plan (1) Pneumonia due to COVID-19 virus Narrative/Plan: Defer mgmt to Attending and Pulmonary Current Visit: Yes Status: Acute Priority: High Code(s): U07.1 - COVID-19; J12.82 - Pneumonia due to coronavirus disease 2018 SNOMED Code(s): 896465101193482773 (2) DVT (deep venous thrombosis) Narrative/Plan: Likely a sequela of covid infection Antiphospholipid ab testing ENEIDA. If positive, coumadin or lovenox is recommended anticoagulant. If negative, DOAC can be used. F/U doppler of RLE 6mo. Do prior to discontinuation of anticoagulation, further recommendations will be made at that time. Cont hep drip while inpt. Dr. Tapia did discuss with Attending Current Visit: Yes Status: Acute Priority: High Code(s): I82.409 - ACUTE E MBOLISM AND THOMBOS UNSP DEEP VN UNSP LOWER EXTREMITY SNOMED Code(s): 128 414502 Plan: Doctor attests: I performed a history and physical examination of this patient, developed impression and plan of care, discussed with dictator. I agree with dictators note, documented as a scribe.
[2021-01-05 17:34] LABS: Glucose,Whole Blood 248 mg/dL (75-99)
[2021-01-05 20:26] LABS: Glucose,Whole Blood 239 mg/dL (75-99)
[2021-01-06 06:16] LABS: Glucose,Whole Blood 201 mg/dL (75-99)
[2021-01-06] MEDS: PANTOPRAZOLE 40 MG TABLET PO SCH ×2 (06:33→16:48)
[2021-01-06] MEDS: INSULIN DETEMIR (LEVEMIR) 100 UNIT/ML SYR SQ SCH (06:34)
[2021-01-06] MEDS: methylPREDNISolone SOD SUCCI 125 MG/2 ML VIAL IV SCH ×4 (06:34→22:52)
[2021-01-06] MEDS: INSULIN ASPART (NovoLOG) 100 UNIT/ML VIAL SQ SCH ×4 (06:34→20:52)
[2021-01-06 06:58] LABS: Cardiolipin Ab IgG Interp NEGATIVE (NEGATIVE); Cardiolipin Ab IgM Interp NEGATIVE (NEGATIVE); Cardiolipin IgA Antibody <2.0 U/mL; Cardiolipin IgM Antibody <1.5 U/mL
--- NOTE | 2021-01-06 07:36 | XR ---
EXAMINATION TYPE: XR chest 1V portable DATE OF EXAM: 01/06/2021 COMPARISON: 01/04/2021 INDICATION: COVID TECHNIQUE: Single frontal view of the chest is obtained. FINDINGS: The heart size is normal. The pulmonary vasculature is normal. Peripheral infiltrates are present which are nonspecific but can be related to atypical pneumonia, gr eater at the left lung base. Findings are worsening from comparison. IMPRESSION: 1. Worsening bilateral lung infiltrates greater at the left lung base can be compatible with atypical pneumonia.
[2021-01-06 08:10] LABS: Basophils % (A) 0 %; Eosinophils % (A) 0 %; HCT 38.1 % (39.0-53.0); HGB 13.1 gm/dL (13.0-17.5); Lymphocytes # (A) 0.2 k/uL (1.0-4.8); Lymphocytes % (A) 3 %; MCH 29.1 pg (25.0-35.0); MCHC 34.5 g/dL (31.0-37.0); MCV 84.4 fL (80.0-100.0); Monocytes # (A) 0.4 k/uL (0-1.0); Monocytes % (A) 5 %; Neutrophils # (A) 6.5 k/uL (1.3-7.7); Neutrophils % (A) 91 %; Platelet Count 271 k/uL (150-450); RBC 4.52 m/uL (4.30-5.90); RDW 13.5 % (11.5-15.5); WBC 7.2 k/uL (3.8-10.6)
[2021-01-06 08:14] LABS: Partial Thromboplastin Time 67.8 sec (22.0-30.0)
[2021-01-06] MEDS: ALBUTEROL HFA INHALER INHALATION PRN ×4 (08:31→20:11)
[2021-01-06] MEDS: TICAGRELOR 90 MG TAB PO SCH ×2 (09:04→20:52)
[2021-01-06] MEDS: ZINC SULFATE 220 MG CAP PO SCH (09:04)
[2021-01-06] MEDS: CHOLECALCIFEROL 25 MCG (1000 IU) TABLET PO SCH (09:04)
[2021-01-06] MEDS: LOSARTAN 25 MG TAB PO SCH (09:04)
[2021-01-06] MEDS: ASCORBIC ACID 500 MG TAB PO SCH (09:04)
[2021-01-06] MEDS: EZETIMIBE 10 MG TAB PO SCH (09:05)
[2021-01-06] MEDS: NEBIVOLOL 5 MG TAB PO SCH (09:05)
[2021-01-06 09:41] LABS: ALT 46 U/L (4-49); AST 30 U/L (17-59); African American GFR (CKD) >90 (>60 ml/min/1.73 sqM); Albumin 3.1 g/dL (3.5-5.0); Alkaline Phosphatase 51 U/L (38-126); Anion Gap 6 mmol/L; Blood Urea Nitrogen 39 mg/dL (9-20); Calcium 8.7 mg/dL (8.4-10.2); Carbon Dioxide 25 mmol/L (22-30); Chloride 106 mmol/L (98-107); Glucose 188 mg/dL (74-99); LDH 1118 U/L (313-618); Non-African American GFR(CKD) >90 (>60 ml/min/1.73 sqM); Potassium 4.7 mmol/L (3.5-5.1); Sodium 137 mmol/L (137-145); Total Bilirubin 1.1 mg/dL (0.2-1.3); Total Protein 6.1 g/dL (6.3-8.2)
[2021-01-06 11:22] LABS: APTT 116 Sec(s) (<43); APTT 1:1 Mix 66 Sec(s) (<43); DRVVT 1:1 Mix 46 Sec(s) (<44); DRVVT Confirmation Negative (Negative); Dilute Russell Viper Venom 59 Sec(s) (<44); Hexagonal Phase Neutralization Negative (Negative)
--- NOTE | 2021-01-06 11:26 | P.PN ---
Subjective Progress Note Date: 01/06/21 56-year-old male, seen in the emergency room, on December 31. The patient has a history of diabetes and hypertension. He Presents to the emergency room complaining of shortness of breath. The patient was apparently transferred from [facility] and [place]. There he was apparently diagnosed with COVID pneumonia. The patient was diagnosed with bilateral pneumonia secondary to coronavirus. The patient was transferred down on BiPAP therapy. He was quite anxious. More recently, he was transitioned over to high flow nasal O2. He denied any chest pain or chest discomfort. There is no fever or chills. The patient has been having symptoms for at least 10 days and may be a bit longer. The patient has not received a coronavirus vaccine. Currently, the patient is on AIRVO, at 40 L/m and 55%. His saturations are in the low 90s. White count 2.43, hemoglobin 13.8, hematocrit 39.8, and platelet count 137,000. PT 10.4, INR 1, fibrinogen 524, PTT 25.1, and d-dimer 0.83. Sodium was 135, potassium 4, chloride 99, CO2 24, anion gap 12, BUN 28, creatinine 1. The patient's CK was 428. LDH was 647, and C-reactive protein was 7.9. Chest x-ray showed diffuse bilateral infiltrates. Currently, the patient's on albuterol inhaler, Decadron, Pradaxa, and his usual cardiac medications. Progress note dated 01/01/2021. This is a 56-year-old male, again seen in room 369. The patient has a history of diabetes and hypertension, and presented to the emergency department with sh ortness of breath. He was transferred down from [facility] in [place]. The patient apparently has been tested a couple times for coronavirus, and tested negative or inconclusive. He was retested here. The patient is being treated as if he has coronavirus pneumonia. Currently, he is on AIRVO. He was on 55 L/m and an FiO2 of 80%. The patient will be sent down on BiPAP for a CT angiogram. There is no new laboratory data today. The patient's major issue is shortness of breath and anxiety. The patient is seen today 01/02/2021 and follow-up on the selective care unit. He is currently resting fairly comfortably in bed. Still short of breath with minimal activity. Short of breath with conversation. He is currently on air bubble high flow oxygen at 55 L and 80% FiO2. He did test positive for the coronavirus by PCR here. White count 7.6. Hemoglobin 13.1. Lymphocytes 0.4. D-dimer 1.3. Sodium 139. Potassium 30.8. Creatinine 0.70. Glucose 187. He remains on DuoNeb inhalations, IV Solu-Medrol, vitamin supplements. Anticoagulated with Pradaxa. CT angiogram ruled out pulmonary embolism. There is bilateral multifocal and confluent groundglass opacities and organizing consolidation consistent with COVID-19 infection The patient is 01/03/2021 in follow-up on selective care unit. He is currently resting fairly comfortably in bed. Awake and alert in no acute distress. Continues with shortness of breath on exertion. He remains on air bubble at 55 L 88% FiO2 to maintain O2 saturations in the high 80s and low 90s. He is afebrile. Bradycardic. Blood glucose 245. He remains on DuoNeb inhalations, IV Solu-Medrol, vitamin supplements. Continued on Tessalon Perles. Anticoagulated with Pradaxa. He was initiated on Baricitinib yesterday. 2020, the patient clinically is feeling better. However, his oxidation is unchanged. He is still requiring high flow oxygen at 55 L with an FiO2 of 90%. Unable to fully extend his lungs with deep breathing because of persistent cough which is a dry cough. He is afebrile. His hemodynamically stable. D-dimer came up today and the liver from today was 34. Note that the patient takes Pradaxa on outpatient basis for long-term anticoagulation regarding previous history of vascular intervention is done in the lower extremities which was complicated by clotting. I believe this was a arterial intervention. The patient is also known to have COPD and previous myocardial infarction. In any rate, the patient has been on a combination of brillinta/pradaxa on outpatient basis. For now he is also on steroids and he is taking IV Solu-Medrol and he was started on Baricitinib . He is also on multivitamins. His taken Tessalon Perles for cough and. Blood sugar today's at 236 and the patient is diabetic. LDH level is 1165 and a CRP level is down to 1.9. No other issues otherwise for now. He is hemodynamically stable. 01/05/2021, seeing the patient for a follow-up. He remains essentially unchanged compared to yesterday. Her oxygenation has remained unchanged and he remains on high flow oxygen 55 L with an FiO2 of 90%. He is still having some dry cough. D-dimer was quite elevated and based on that we did further investigation. Doppler of the lower extremity was done and the findings were consistent with right popliteal DVT and there was a long segment of occlusion along with acute DVT of the right groin extending below the level of the right knee. No left-sided acute DVT was noted. Based on that, vascular surgery was consulted and the patient underwent a CT angiogram of the abdomen and pelvis to better visualize the arteries and veins extending to the lower extremities. The CT angiogram was completed and there was decreased enhancement and suboptimal contrast in the right iliac stent compared to the left. It was not clear if this was related to a thrombus or due to slow flow versus DVT in the involved vessel. In any rate, no further intervention was recommended and the patient was asked to continue with IV heparin. Obviously there is a concern for failure of his oral anticoagulants and vascular surgery is involved hematology on the case. Meanwhile, the patient is on steroids. He is currently on Solu-Medrol 60 mg every 6 hours and he is also on Baricitinib . His blood work from today shows a therapeutic PTT of 92. D-dimer was above 34 from yesterday. Electrodes were normal. LDH from yesterday was 1165 with a CRP level of 1.9. Hemodynamically stable. No pleurisy. No hemoptysis. Tolerating his diet. Using incentive spirometer. 01/06/2021, seeing this patient for a follow-up. He is still on high flow oxygen at 55 L with an FiO2 of 86%. While moving around and trying to take a bath, the pulse ox dropped down to the low 80s, currently his pulse ox is around 86-87%. He feels essentially the same as yesterday and probably slightly bet ter. He remains on steroids. The patient is currently on IV Solu Medrol 60 mg every 6 hours and he is also on Baricitinib. . He is afebrile. Inflammatory markers show an LDH level of 1118 which is essentially comparable to few days ago and a CRP level is at 6.1. The rest of the blood work shows a d-dimer of 18.7 which is obviously dropping. BUN is at 39 with a creatinine of 0.8. White cell count is at 7.2. 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 As mentioned earlier, the patient had a right popliteal DVT and there was a long segment of occlusion along the right groin extending to the knee. No evidence of any DVT on the left. Vascular surgery was consulted. CAT scan of the abdomen and pelvis was reviewed and showed the arteries and veins extending to the lower extremity. There was decreased enhancement and suboptimal contrast in the right iliac stent compared to left. He was not absolutely. This was a thrombus or it was a low flow state versus DVT. In any rate, we consulted hematology oncology and we kept the p atient on anticoagulation. We took him off the Pradaxa and patient is currently on IV heparin. Awaiting further recommendations from hematology oncology. As mentioned earlier, the anti-cardiolipin antibodies came back negative. As mentioned earlier, the patient has been on long-term antiplatelet agent with Brilinta, given to him by cardiology. Objective - Vital Signs Vital signs: Vital Signs Temp 98.1 F 01/06/21 08:00 Pulse 58 L 01/06/21 08:00 Resp 20 01/06/21 08:00 BP 95/58 01/06/21 08:00 Pulse Ox 91 L 01/06/21 08:00 Intake & Output 01/05/21 01/06/21 01/06/21 18:59 06:59 18:59 Intake Total 763.32 130.052 276.104 Output Total 710 100 175 Balance 53.32 30.052 101.104 Weight 81 kg 81 kg Intake: Intake, IV Titration 21.32 130.052 96.104 Amount Heparin Sod,Pork in 0.45% 21.32 130.052 96.104 NaCl 25,000 unit In 0.45 % NaCl 1 250ml.bag @ 18 UNITS/KG/HR 14.76 mls/hr IV .[id number] [facility] Rx#: [id number] Oral 742 180 Output: Urine 710 100 175 Other: Voiding Method Urinal # Voids 2 1 # Bowel Movements 0 1 - Exam GENERAL EXAM: Alert, pleasant 55-year-old, on AirVo high flow oxygen at 55 L and 85% FiO2, fairly comfortable in no apparent distress. HEAD: Normocephalic. EYES: Normal reaction of pupils, equal size. NOSE: Clear with pink turbinates. THROAT: No erythema or exudates. NECK: No masses, no JVD. CHEST: No chest wall deformity. LUNGS: Equal air entry with coarse crackles in the posterior bases CVS: S1 and S2 normal with no audible murmur, regular rhythm. ABDOMEN: No hepatosplenomegaly, normal bowel sounds, no guarding or rigidity. SPINE: No scoliosis or deformity SKIN: No rashes CENTRAL NERVOUS SYSTEM: No focal deficits, tone is normal in all 4 extremities. EXTREMITIES: There is no peripheral edema. No clubbing, no cyanosis. Peripheral pulses are intact. - Labs CBC & Chem 7: 01/06/21 07:28 01/06/21 07:28 Labs: Abnormal Lab Results - Last 24 Hours (Table) 01/05/21 01/05/21 01/05/21 Range/Units 12:03 17:22 20:15 Hct (39.0-53.0) % Lymphocytes # (1.0-4.8) k/uL APTT (22.0-30.0) sec D-Dimer (<0.60) mg/L FEU BUN (9-20) mg/dL Glucose (74-99) mg/dL POC Glucose (mg/dL) 186 H 248 H 239 H (75-99) mg/dL Lactate Dehydrogenase (313-618) U/L Total Protein (6.3-8.2) g/dL Albumin (3.5-5.0) g/dL 01/05/21 01/06/21 01/06/21 Range/Units Unknown 06:14 07:28 Hct 38.1 L (39.0-53.0) % Lymphocytes # 0.2 L (1.0-4.8) k/uL APTT 49.0 H (22.0-30.0) sec D-Dimer (<0.60) mg/L FEU BUN (9-20) mg/dL Glucose (74-99) mg/dL POC Glucose (mg/dL) 201 H (75-99) mg/dL Lactate Dehydrogenase (313-618) U/L Total Protein (6.3-8.2) g/dL Albumin (3.5-5.0) g/dL 01/06/21 01/06/21 Range/Units 07:28 07:28 Hct (39.0-53.0) % Lymphocytes # (1.0-4.8) k/uL APTT 67.8 H (22.0-30.0) sec D-Dimer 18.79 H (<0.60) mg/L FEU BUN 39 H (9-20) mg/dL Glucose 188 H (74-99) mg/dL POC Glucose (mg/dL) (75-99) mg/dL Lactate Dehydrogenase 1118 H (313-618) U/L Total Protein 6.1 L (6.3-8.2) g/dL Albumin 3.1 L (3.5-5.0) g/dL Assessment and Plan Plan: 1 Acute hypoxemic respiratory failure secondary to coronavirus pneumonia. Initiated on Baricitinib 01/02/2021. Consistent with diffuse bilateral pulmonary infiltrates and the patient is currently on high flow oxygen at 55 L with an FiO2 of 85%. D-dimer is elevated. LDH and CRP are both elevated. Oxygenation is unchanged. Inflammatory markers remain elevated. The patient remains on IV heparin. IV heparin will be continued per hematology recommendations. Chest x-ray from today still showing persistent but the pulmonary infiltrates probably slightly worse compared to the earlier chest x- ray findings. Clinically however, the patient is unchanged and stable and there is no worsening in his oxygenation. 2 History of diabetes mellitus. 3 History of hypertension. 4 History of coronary artery disease. 5 History of myocardial infarction. 6 History of hyperlipidemia. 7 DVT involving the right lower extremity, failed anticoagulation with pradaxa, please refer to the CAT scan of the abdomen and pelvis and the Doppler of the lower extremity. D-dimer is declining and the patient remains on IV heparin. 8 previous history of bilateral iliac vein/femoral vein stents. Plan: Continue anticoagulation with IV heparin Continued on Baricitinib, Solu-Medrol Continue bronchodilators, vitamin supplements Titrate down the FiO2 as tolerated Add incentive spirometer Prone while in bed Prognosis is guarded Follow-up chest x-ray and labs in a.m. We'll chart to wean down the FiO2 as tolerated to maintain a saturation above 90%. Clinically is feeling better. We will continue to follow
[2021-01-06 11:33] LABS: Glucose,Whole Blood 200 mg/dL (75-99)
[2021-01-06] MEDS: BARICITINIB 2 MG TABLET PO SCH (12:12)
[2021-01-06 12:33] LABS: C Reactive Protein 0.8 mg/dL (<1.0)
--- NOTE | 2021-01-06 13:25 | P.PN ---
Subjective Progress Note Date: 01/06/21 Patient Was seen and examined lying in bed. No acute changes through the night. Patient remains on IV heparin drip at this time. Hematology following patient. Awaiting antiphospholipid antibody testing. Hematology recommends as positive patient to start Coumadin or Lovenox, and if negative DOAC had be used. Objective - Vital Signs Vital signs: Vital Signs Temp 97.9 F 01/06/21 03:17 Pulse 52 L 01/06/21 03:17 Resp 20 01/06/21 03:17 BP 98/60 01/06/21 03:17 Pulse Ox 90 L 01/06/21 03:17 Intake & Output 01/05/21 01/06/21 01/06/21 18:59 06:59 18:59 Intake Total 763.32 130.052 180 Output Total 710 100 Balance 53.32 30.052 180 Weight 81 kg 81 kg Intake: Intake, IV Titration 21.32 130.052 Amount Heparin Sod,Pork in 0.45% 21.32 130.052 NaCl 25,000 unit In 0.45 % NaCl 1 250ml.bag @ 18 UNITS/KG/HR 14.76 mls/hr IV .[id number] [facility] Rx#: [id number] Oral 742 180 Output: Urine 710 100 Other: Voiding Method Urinal # Voids 2 1 # Bowel Movements 0 1 - Exam General appearance: The patient is alert, oriented, in no acute distress. HET: Head is normocephalic and atraumatic. Pupils are equal and reactive. Oropharynx is clear without lesions. Extremities: Normal skin color and turgor. No cyanosis, rash, ulceration, clubbing. Right lower extremity with +1 edema. Bilateral dorsalis pedis and posterior tibialis pulses. Warm to the touch. Good capillary refill. Neurological: No focal deficits. Strength and sensation are grossly intact. - Labs CBC & Chem 7: 01/06/21 07:28 01/06/21 07:28 Labs: Abnormal Lab Results - Last 24 Hours (Table) 01/05/21 01/05/21 01/05/21 Range/Units 12:03 17:22 20:15 Hct (39.0-53.0) % Lymphocytes # (1.0-4.8) k/uL APTT (22.0-30.0) sec D-Dimer (<0.60) mg/L FEU POC Glucose (mg/dL) 186 H 248 H 239 H (75-99) mg/dL 01/05/21 01/06/21 01/06/21 Range/Units Unknown 06:14 07:28 Hct 38.1 L (39.0-53.0) % Lymphocytes # 0.2 L (1.0-4.8) k/uL APTT 49.0 H (22.0-30.0) sec D-Dimer (<0.60) mg/L FEU POC Glucose (mg/dL) 201 H (75-99) mg/dL 01/06/21 Range/Units 07:28 Hct (39.0-53.0) % Lymphocytes # (1.0-4.8) k/uL APTT 67.8 H (22.0-30.0) sec D-Dimer 18.79 H (<0.60) mg/L FEU POC Glucose (mg/dL) (75-99) mg/dL Assessment and Plan Assessment: 1. Occluded acute DVT from right groin extending below the level of the right knee. 2. Covid-19 penumonitis 3. History of peripheral arterial disease status post revascularization 4. History of coronary artery disease Plan: 1. CTA abdomen and pelvis venous phase ordered and reviewed by Dr. Thomas 2. There is no indication for any vascular surgical intervention at this time, continue anticoagulation per recommendations from hematology 3. Follow up outpatient with vascular surgery Thank you for this consultation, we will be on standby, if further needed please do not hesitate to call us back. The impression and plan of care has been dictated as directed. Dr. Thomas I performed a history and examination of this patient, discussed the same with the dictator. I agree with the dictator's note ,documented as a scribe. Any additional findings or plans will be noted.
--- NOTE | 2021-01-06 15:39 | P.PN ---
Subjective Progress Note Date: 01/06/21 Principal diagnosis: Covid 19, RLE DVT, extensive In f/u today pt resp status is the same, he admits to difficulty with breathing with exertion. He cont on heparin drip, denies any bleeding. Objective - Vital Signs Vital signs: Vital Signs Temp 97.6 F 01/06/21 11:59 Pulse 61 01/06/21 11:59 Resp 20 01/06/21 11:59 BP 99/57 01/06/21 11:59 Pulse Ox 89 L 01/06/21 15:26 Intake & Output 01/05/21 01/06/21 01/06/21 18:59 06:59 18:59 Intake Total 763.32 130.052 276.104 Output Total 710 100 175 Balance 53.32 30.052 101.104 Weight 81 kg 81 kg Intake: Intake, IV Titration 21.32 130.052 96.104 Amount Heparin Sod,Pork in 0.45% 21.32 130.052 96.104 NaCl 25,000 unit In 0.45 % NaCl 1 250ml.bag @ 18 UNITS/KG/HR 14.76 mls/hr IV .[id number] [facility] Rx#: [id number] Oral 742 180 Output: Urine 710 100 175 Other: Voiding Method Urinal # Voids 2 1 # Bowel Movements 0 1 - Constitutional General appearance: Present: average body habitus, cooperative, no acute distress - EENT Eyes: Present: anicteric sclerae, EOMI ENT: Present: hearing grossly normal - Respiratory Details: high flow O2 - Psychiatric Psychiatric: Present: A&O x's 3, appropriate affect, intact judgment & insight - Labs CBC & Chem 7: 01/06/21 07:28 01/06/21 07:28 Labs: Abnormal Lab Results - Last 24 Hours (Table) 01/05/21 01/05/21 01/05/21 Range/Units 17:22 20:15 Unknown Hct (39.0-53.0) % Lymphocytes # (1.0-4.8) k/uL APTT 49.0 H (22.0-30.0) sec D-Dimer (<0.60) mg/L FEU Lupus Anticoag aPTT (<43) Sec(s) Lupus Anticoag PTT Mix (<43) Sec(s) Dil Fernando Viper Venom (<44) Sec(s) dRVVT 50:50 (<44) Sec(s) BUN (9-20) mg/dL Glucose (74-99) mg/dL POC Glucose (mg/dL) 248 H 239 H (75-99) mg/dL Lactate Dehydrogenase (313-618) U/L Total Protein (6.3-8.2) g/dL Albumin (3.5-5.0) g/dL 01/05/21 01/06/21 01/06/21 Range/Units Unknown 06:14 07:28 Hct 38.1 L (39.0-53.0) % Lymphocytes # 0.2 L (1.0-4.8) k/uL APTT (22.0-30.0) sec D-Dimer (<0.60) mg/L FEU Lupus Anticoag aPTT 116 H (<43) Sec(s) Lupus Anticoag PTT Mix 66 H (<43) Sec(s) Dil Fernando Viper Venom 59 H (<44) Sec(s) dRVVT 50:50 46 H (<44) Sec(s) BUN (9-20) mg/dL Glucose (74-99) mg/dL POC Glucose (mg/dL) 201 H (75-99) mg/dL Lactate Dehydrogenase (313-618) U/L Total Protein (6.3-8.2) g/dL Albumin (3.5-5.0) g/dL 01/06/21 01/06/21 01/06/21 Range/Units 07:28 07:28 11:32 Hct (39.0-53.0) % Lymphocytes # (1.0-4.8) k/uL APTT 67.8 H (22.0-30.0) sec D-Dimer 18.79 H (<0.60) mg/L FEU Lupus Anticoag aPTT (<43) Sec(s) Lupus Anticoag PTT Mix (<43) Sec(s) Dil Fernando Viper Venom (<44) Sec(s) dRVVT 50:50 (<44) Sec(s) BUN 39 H (9-20) mg/dL Glucose 188 H (74-99) mg/dL POC Glucose (mg/dL) 200 H (75-99) mg/dL Lactate Dehydrogenase 1118 H (313-618) U/L Total Protein 6.1 L (6.3-8.2) g/dL Albumin 3.1 L (3.5-5.0) g/dL - Imaging and Cardiology Chest x-ray: report reviewed Assessment and Plan (1) Pneumonia due to COVID-19 virus Narrative/Plan: Defer mgmt to Attending and Pulmonary Current Visit: Yes Status: Acute Priority: High Code(s): U07.1 - COVID-19; J12.82 - Pneumonia due to coronavirus disease 2018 SNOMED Code(s): 863324816052929181 (2) DVT (deep venous thrombosis) Narrative/Plan: Likely a sequela of covid infection Antiphospholipid ab testing is neg, lupus anticoagulant neg, pending beta 2 glycoprotein for final anticoagulation recommendations. Cont heparin drip for now. Pt needs to f/u with his Vascular MD in [facility] on DC for recommendations on duration of anticoagulation because of his history. Did discuss case briefly with Attending Current Visit: Yes Status: Acute Priority: High Code(s): I82.409 - ACUTE EMBOLISM AND THOMBOS UNSP DEEP VN UNSP LOWER EXTREMITY SNOMED Code(s): 017575507
--- NOTE | 2021-01-06 15:50 | P.PN ---
Subjective Progress Note Date: 01/06/21 Principal diagnosis: shortness of breath Patient is a 55-year-old male with a past medical history of diabetes mellitus, coronary artery disease with history of myocardial infarction and stent who presented with complaints of shortness of breath. He was transferred here from [place]. Patient seen and examined at bedside. No chest discomfort, some shortness of breath when getting up and moving lightheaded when getting up and moving, no nausea or vomiting, states he has been. We discussed that he will likely have a prolonged hospital stay and it is not near discharge secondary to O2 requirement back to see him to require to be in the hospital another 7-10 days at a minimum General: Ill-appearing, moderate distress, appears at stated age Derm: warm, dry Head: atraumatic, normocephalic, symmetric Eyes: EOMI, no lid lag, anicteric sclera Mouth: no lip lesion, mucus membranes moist Cardiovascular: S1S2 reg, no murmur, positive posterior tibial pulse bilateral, Lungs: Coarse breath sounds bilateral, no rhonchi, no rales , no accessory muscle use Abdominal: soft, nontender to palpation, no guarding, no appreciable organomegaly Ext: no gross muscle atrophy, no edema, no contractures Neuro: CN II-XI grossly intact, no focal neuro deficits Psych: Alert, oriented, appropriate affect Acute hypoxic respiratory failure secondary to COVID-19 pneumonia COVID-19 pneumonia Right lower extremity DVT ARDS -Solumedrol and Baricitinib D # 5 -Pulmonary recommendations -Zinc, vitamin C, vitamin D -Follow inflammatory labs she did - IV heparin, Hematology recs,pending beta 2 glycoprotein to determined lovenox vs DOAC - vascualr surgery recs apprecaited - close follow-up with vascular surgery in [place] - prone positioning Diabetes mellitus type 2 -Jardiance and metformin on hold -Sliding-scale insulin -Levemir -Follow blood sugars -A1c Hypertension, controlled -Continue with Bystolic Chronic: Coronary artery disease Myocardial infarction Dyslipidemia DVT prophylaxis: Heparin gtt Discussed with: patient, nursing, heme/onc ELECTRICIAN APPRENTICE Anticipated discharge: 10-[address]: home A total of 45 minutes was spent on the care of this complex patient more than 50% of the time was spent in counseling and care coordination. Objective - Vital Signs Vital signs: Vital Signs Temp 97.6 F 01/06/21 11:59 Pulse 61 01/06/21 11:59 Resp 20 01/06/21 11:59 BP 99/57 01/06/21 11:59 Pulse Ox 89 L 01/06/21 15:26 Intake & Output 01/05/21 01/06/21 01/06/21 18:59 06:59 18:59 Intake Total 763.32 130.052 276.104 Output Total 710 100 175 Balance 53.32 30.052 101.104 Weight 81 kg 81 kg Intake: Intake, IV Titration 21.32 130.052 96.104 Amount Heparin Sod,Pork in 0.45% 21.32 130.052 96.104 NaCl 25,000 unit In 0.45 % NaCl 1 250ml.bag @ 18 UNITS/KG/HR 14.76 mls/hr IV .[id number] [facility] Rx#: [id number] Oral 742 180 Output: Urine 710 100 175 Other: Voiding Method Urinal # Voids 2 1 # Bowel Movements 0 1 - Labs CBC & Chem 7: 01/06/21 07:28 01/06/21 07:28 Labs: Abnormal Lab Results - Last 24 Hours (Table) 01/05/21 01/05/21 01/05/21 Range/Units 17:22 20:15 Unknown Hct (39.0-53.0) % Lymphocytes # (1.0-4.8) k/uL APTT 49.0 H (22.0-30.0) sec D-Dimer (<0.60) mg/L FEU Lupus Anticoag aPTT (<43) Sec(s) Lupus Anticoag PTT Mix (<43) Sec(s) Dil Fernando Viper Venom (<44) Sec(s) dRVVT 50:50 (<44) Sec(s) BUN (9-20) mg/dL Glucose (74-99) mg/dL POC Glucose (mg/dL) 248 H 239 H (75-99) mg/dL Lactate Dehydrogenase (313-618) U/L Total Protein (6.3-8.2) g/dL Albumin (3.5-5.0) g/dL 01/05/21 01/06/21 01/06/21 Range/Units Unknown 06:14 07:28 Hct 38.1 L (39.0-53.0) % Lymphocytes # 0.2 L (1.0-4.8) k/uL APTT (22.0-30.0) sec D-Dimer (<0.60) mg/L FEU Lupus Anticoag aPTT 116 H (<43) Sec(s) Lupus Anticoag PTT Mix 66 H (<43) Sec(s) Dil Fernando Viper Venom 59 H (<44) Sec(s) dRVVT 50:50 46 H (<44) Sec(s) BUN (9-20) mg/dL Glucose (74-99) mg/dL POC Glucose (mg/dL) 201 H (75-99) mg/dL Lactate Dehydrogenase (313-618) U/L Total Protein (6.3-8.2) g/dL Albumin (3.5-5.0) g/dL 01/06/21 01/06/21 01/06/21 Range/Units 07:28 07:28 11:32 Hct (39.0-53.0) % Lymphocytes # (1.0-4.8) k/uL APTT 67.8 H (22.0-30.0) sec D-Dimer 18.79 H (<0.60) mg/L FEU Lupus Anticoag aPTT (<43) Sec(s) Lupus Anticoag PTT Mix (<43) Sec(s) Dil Fernando Viper Venom (<44) Sec(s) dRVVT 50:50 (<44) Sec(s) BUN 39 H (9-20) mg/dL Glucose 188 H (74-99) mg/dL POC Glucose (mg/dL) 200 H (75-99) mg/dL Lactate Dehydrogenase 1118 H (313-618) U/L Total Protein 6.1 L (6.3-8.2) g/dL Albumin 3.1 L (3.5-5.0) g/dL
[2021-01-06 16:16] LABS: Glucose,Whole Blood 208 mg/dL (75-99)
[2021-01-06 20:21] LABS: Glucose,Whole Blood 182 mg/dL (75-99)
[2021-01-06] MEDS: HEPARIN SOD,PORK IN 0.45% NACL 25,000 UNIT in 0.45% NACL 1 250ML.BAG IV SCH (20:52)
[2021-01-07] MEDS: PANTOPRAZOLE 40 MG TABLET PO SCH ×2 (06:38→17:10)
[2021-01-07] MEDS: INSULIN DETEMIR (LEVEMIR) 100 UNIT/ML SYR SQ SCH (06:38)
[2021-01-07] MEDS: methylPREDNISolone SOD SUCCI 125 MG/2 ML VIAL IV SCH ×4 (06:38→23:21)
[2021-01-07] MEDS: INSULIN ASPART (NovoLOG) 100 UNIT/ML VIAL SQ SCH ×4 (06:38→20:38)
[2021-01-07 06:46] LABS: Glucose,Whole Blood 212 mg/dL (75-99)
[2021-01-07 08:25] LABS: Basophils % (A) 0 %; Eosinophils % (A) 0 %; HGB 13.3 gm/dL (13.0-17.5); Lymphocytes # (A) 0.2 k/uL (1.0-4.8); Lymphocytes % (A) 2 %; MCV 85.2 fL (80.0-100.0); Monocytes # (A) 0.4 k/uL (0-1.0); Monocytes % (A) 5 %; Neutrophils # (A) 7.7 k/uL (1.3-7.7); Neutrophils % (A) 93 %; Platelet Count 259 k/uL (150-450); RBC 4.58 m/uL (4.30-5.90); RDW 13.3 % (11.5-15.5); WBC 8.3 k/uL (3.8-10.6)
[2021-01-07] MEDS: ALBUTEROL HFA INHALER INHALATION PRN ×4 (08:32→20:04)
[2021-01-07] MEDS: CHOLECALCIFEROL 25 MCG (1000 IU) TABLET PO SCH (08:57)
[2021-01-07] MEDS: ASCORBIC ACID 500 MG TAB PO SCH (08:57)
[2021-01-07] MEDS: TICAGRELOR 90 MG TAB PO SCH ×2 (08:57→20:38)
[2021-01-07] MEDS: ZINC SULFATE 220 MG CAP PO SCH (08:57)
[2021-01-07] MEDS: LOSARTAN 25 MG TAB PO SCH (08:57)
[2021-01-07] MEDS: EZETIMIBE 10 MG TAB PO SCH (08:57)
[2021-01-07 09:06] LABS: ALT 43 U/L (4-49); AST 28 U/L (17-59); African American GFR (CKD) >90 (>60 ml/min/1.73 sqM); Albumin 3.2 g/dL (3.5-5.0); Alkaline Phosphatase 53 U/L (38-126); Anion Gap 7 mmol/L; Blood Urea Nitrogen 38 mg/dL (9-20); Calcium 8.7 mg/dL (8.4-10.2); Carbon Dioxide 26 mmol/L (22-30); Chloride 104 mmol/L (98-107); Glucose 210 mg/dL (74-99); Non-African American GFR(CKD) >90 (>60 ml/min/1.73 sqM); Potassium 4.6 mmol/L (3.5-5.1); Sodium 137 mmol/L (137-145); Total Protein 6.2 g/dL (6.3-8.2)
--- NOTE | 2021-01-07 10:45 | P.PN ---
<Vipin Gomez - Last Filed: 01/07/21 13:32> Subjective Progress Note Date: 01/07/21 Hospital course: Patient is a 55-year-old male with a past medical history of diabetes mellitus, coronary artery disease with history of myocardial infarction and stent who presented with complaints of shortness of breath. He was transferred here from [place] and admitted under our services with consultation to pulmonology for acute hypoxic respiratory failure secondary to Covid 19 pneumonia, ARDS, and RLE DVT. Physical examination: Patient seen and examined at bedside. He is currently on AIRVO with FiO2 of 70% maintaining O2 sat 90-91%. Patient reports continued shortness of breath which increases with minimal exertion accompanied by generalized weakness. He reports having an okay appetite and denies having any headache, lightheadedness, dizziness, chest pain, palpitations, nausea, vomiting, or experiencing any numbness/tingling/weakness/swelling in his extremities. General: Ill-appearing, moderate distress, appears at stated age Derm: warm, dry Head: atraumatic, normocephalic, symmetric Eyes: EOMI, no lid lag, anicteric sclera Mouth: no lip lesion, mucus membranes moist Cardiovascular: S1S2 reg, no murmur, positive posterior tibial pulse bilateral, Lungs: Coarse rhonchi bilaterally. Positive conversational dyspnea. No accessory muscle usage. Abdominal: soft, nontender to palpation, no guarding, no appreciable organomegaly Ext: no gross muscle atrophy, no edema, no contractures Neuro: CN II-XI grossly intact, no focal neuro deficits Psych: Alert, oriented, appropriate affect Acute hypoxic respiratory failure secondary to COVID-19 pneumonia COVID-19 pneumonia Right lower extremity DVT ARDS -Solumedrol day 6 -Baricitinib day 6 of 14 -Pulmonary following, appreciate further recommendations. -Continuation of Zinc, vitamin C, vitamin D -Follow inflammatory markers -Continuation of IV heparin for treatment of DVT -Hematology following, appreciate further recommendations -Anti-cardiolipin antibodies and antiphospholipid antibodies negative, beta 2 microglobulin normal findings at 1.40. -Inflammatory markers improving with LDH of 1118, CRP 0.8, and d-dimer of 18.79. We will repeat inflammatory markers with a.m. labs. -Vascualr surgery following, further recommendations appreciated -Close follow-up with vascular surgery in [place] -Encourage prone positioning Diabetes mellitus type II -Jardiance and metformin on hold -Glycemic protocol with NovoLog sliding scale -Levemir -Follow blood sugars -A1c Hypertension, controlled -Monitor vital signs and Continue with Bystolic Chronic medical conditions include: Coronary artery disease History of Myocardial infarction Dyslipidemia CODE STATUS: Full code DVT prophylaxis: Heparin gtt Discussed with: Patient and RN Anticipated discharge: Clinical course to determine, expected course prolonged 7-[address]: home, possibly with homecare A total of 45 minutes was spent on the care of this complex patient more than 50% of the time was spent in counseling and care coordination. Objective - Vital Signs Vital signs: Vital Signs Temp 97.9 F 01/07/21 08:00 Pulse 61 01/07/21 08:00 Resp 20 01/07/21 08:00 BP 84/55 01/07/21 08:00 Pulse Ox 91 L 01/07/21 08:32 Intake & Output 01/06/21 01/07/21 01/07/21 18:59 06:59 18:59 Intake Total 581.704 337.17 180 Output Total 375 475 175 Balance 206.704 -137.83 5 Weight 83 kg Intake: IV 65.6 Heparin Sod,Pork in 0.45% 65.6 NaCl 25,000 unit In 0.45 % NaCl 1 250ml.bag @ 18 UNITS/KG/HR 14.76 mls/hr IV .[id number] [facility] Rx#: [id number] Intake, IV Titration 96.104 97.17 Amount Heparin Sod,Pork in 0.45% 96.104 97.17 NaCl 25,000 unit In 0.45 % NaCl 1 250ml.bag @ 18 UNITS/KG/HR 14.76 mls/hr IV .[id number] [facility] Rx#: [id number] Oral 420 240 180 Output: Urine 375 475 175 Other: Voiding Method Urinal # Voids 1 1 # Bowel Movements 1 1 - Labs CBC & Chem 7: 01/07/21 07:51 01/07/21 07:51 Labs: Abnormal Lab Results - Last 24 Hours (Table) 01/05/21 01/06/21 01/06/21 Range/Units Unknown 11:32 15:59 Lymphocytes # (1.0-4.8) k/uL APTT 49.6 H (22.0-30.0) sec Lupus Anticoag aPTT 116 H (<43) Sec(s) Lupus Anticoag PTT Mix 66 H (<43) Sec(s) Dil Fernando Viper Venom 59 H (<44) Sec(s) dRVVT 50:50 46 H (<44) Sec(s) BUN (9-20) mg/dL Glucose (74-99) mg/dL POC Glucose (mg/dL) 200 H (75-99) mg/dL Total Protein (6.3-8.2) g/dL Albumin (3.5-5.0) g/dL 01/06/21 01/06/21 01/07/21 Range/Units 16:14 20:18 06:36 Lymphocytes # (1.0-4.8) k/uL APTT (22.0-30.0) sec Lupus Anticoag aPTT (<43) Sec(s) Lupus Anticoag PTT Mix (<43) Sec(s) Dil Fernando Viper Venom (<44) Sec(s) dRVVT 50:50 (<44) Sec(s) BUN (9-20) mg/dL Glucose (74-99) mg/dL POC Glucose (mg/dL) 208 H 182 H 212 H (75-99) mg/dL Total Protein (6.3-8.2) g/dL Albumin (3.5-5.0) g/dL 01/07/21 01/07/21 01/07/21 Range/Units 07:51 07:51 07:51 Lymphocytes # 0.2 L (1.0-4.8) k/uL APTT 52.4 H (22.0-30.0) sec Lupus Anticoag aPTT (<43) Sec(s) Lupus Anticoag PTT Mix (<43) Sec(s) Dil Fernando Viper Venom (<44) Sec(s) dRVVT 50:50 (<44) Sec(s) BUN 38 H (9-20) mg/dL Glucose 210 H (74-99) mg/dL POC Glucose (mg/dL) (75-99) mg/dL Total Protein 6.2 L (6.3-8.2) g/dL Albumin 3.2 L (3.5-5.0) g/dL <Tammy Ospina - Last Filed: 01/07/21 18:11> Objective - Vital Signs Vital signs: Vital Signs Temp 97.8 F 01/07/21 16:30 Pulse 51 L 01/07/21 16:30 Resp 20 01/07/21 16:30 BP 94/59 01/07/21 16:30 Pulse Ox 91 L 01/07/21 16:30 Intake & Output 01/06/21 01/07/21 01/07/21 18:59 06:59 18:59 Intake Total 581.704 337.17 180 Output Total 375 475 175 Balance 206.704 -137.83 5 Weight 83 kg Intake: IV 65.6 Heparin Sod,Pork in 0.45% 65.6 NaCl 25,000 unit In 0.45 % NaCl 1 250ml.bag @ 18 UNITS/KG/HR 14.76 mls/hr IV .[id number] [facility] Rx#: [id number] Intake, IV Titration 96.104 97.17 Amount Heparin Sod,Pork in 0.45% 96.104 97.17 NaCl 25,000 unit In 0.45 % NaCl 1 250ml.bag @ 18 UNITS/KG/HR 14.76 mls/hr IV .[id number] [facility] Rx#: [id number] Oral 420 240 180 Output: Urine 375 475 175 Other: Voiding Method Urinal # Voids 1 1 # Bowel Movements 1 1 1 - Labs CBC & Chem 7: 01/07/21 07:51 01/07/21 07:51 Labs: Abnormal Lab Results - Last 24 Hours (Table) 01/06/21 01/07/21 01/07/21 Range/Units 20:18 06:36 07:51 Lymphocytes # (1.0-4.8) k/uL APTT (22.0-30.0) sec BUN (9-20) mg/dL Glucose (74-99) mg/dL POC Glucose (mg/dL) 182 H 212 H (75-99) mg/dL Hemoglobin A1c 7.1 H (4.0-6.0) % Total Protein (6.3-8.2) g/dL Albumin (3.5-5.0) g/dL 01/07/21 01/07/21 01/07/21 Range/Units 07:51 07:51 07:51 Lymphocytes # 0.2 L (1.0-4.8) k/uL APTT 52.4 H (22.0-30.0) sec BUN 38 H (9-20) mg/dL Glucose 210 H (74-99) mg/dL POC Glucose (mg/dL) (75-99) mg/dL Hemoglobin A1c (4.0-6.0) % Total Protein 6.2 L (6.3-8.2) g/dL Albumin 3.2 L (3.5-5.0) g/dL 01/07/21 01/07/21 Range/Units 11:54 16:35 Lymphocytes # (1.0-4.8) k/uL APTT (22.0-30.0) sec BUN (9-20) mg/dL Glucose (74-99) mg/dL POC Glucose (mg/dL) 201 H 215 H (75-99) mg/dL Hemoglobin A1c (4.0-6.0) % Total Protein (6.3-8.2) g/dL Albumin (3.5-5.0) g/dL Assessment and Plan Assessment: I reviewed the documentation as provided by the CARMELO above, who is the original author of this note. I agree with the documented assessment and plan, with the following changes: None
[2021-01-07 11:56] LABS: Glucose,Whole Blood 201 mg/dL (75-99)
--- NOTE | 2021-01-07 12:03 | P.PN ---
Subjective Progress Note Date: 01/07/21 56-year-old male, seen in the emergency room, on December 31. The patient has a history of diabetes and hypertension. He Presents to the emergency room complaining of shortness of breath. The patient was apparently transferred from [facility] and [place]. There he was apparently diagnosed with COVID pneumonia. The patient was diagnosed with bilateral pneumonia secondary to coronavirus. The patient was transferred down on BiPAP therapy. He was quite anxious. More recently, he was transitioned over to high flow nasal O2. He denied any chest pain or chest discomfort. There is no fever or chills. The patient has been having symptoms for at least 10 days and may be a bit longer. The patient has not received a coronavirus vaccine. Currently, the patient is on AIRVO, at 40 L/m and 55%. His saturations are in the low 90s. White count 2.43, hemoglobin 13.8, hematocrit 39.8, and platelet count 137,000. PT 10.4, INR 1, fibrinogen 524, PTT 25.1, and d-dimer 0.83. Sodium was 135, potassium 4, chloride 99, CO2 24, anion gap 12, BUN 28, creatinine 1. The patient's CK was 428. LDH was 647, and C-reactive protein was 7.9. Chest x-ray showed diffuse bilateral infiltrates. Currently, the patient's on albuterol inhaler, Decadron, Pradaxa, and his usual cardiac medications. Progress note dated 01/01/2021. This is a 56-year-old male, again seen in room 369. The patient has a history of diabetes and hypertension, and presented to the emergency department with sh ortness of breath. He was transferred down from [facility] in [place]. The patient apparently has been tested a couple times for coronavirus, and tested negative or inconclusive. He was retested here. The patient is being treated as if he has coronavirus pneumonia. Currently, he is on AIRVO. He was on 55 L/m and an FiO2 of 80%. The patient will be sent down on BiPAP for a CT angiogram. There is no new laboratory data today. The patient's major issue is shortness of breath and anxiety. The patient is seen today 01/02/2021 and follow-up on the selective care unit. He is currently resting fairly comfortably in bed. Still short of breath with minimal activity. Short of breath with conversation. He is currently on air bubble high flow oxygen at 55 L and 80% FiO2. He did test positive for the coronavirus by PCR here. White count 7.6. Hemoglobin 13.1. Lymphocytes 0.4. D-dimer 1.3. Sodium 139. Potassium 30.8. Creatinine 0.70. Glucose 187. He remains on DuoNeb inhalations, IV Solu-Medrol, vitamin supplements. Anticoagulated with Pradaxa. CT angiogram ruled out pulmonary embolism. There is bilateral multifocal and confluent groundglass opacities and organizing consolidation consistent with COVID-19 infection The patient is 01/03/2021 in follow-up on selective care unit. He is currently resting fairly comfortably in bed. Awake and alert in no acute distress. Continues with shortness of breath on exertion. He remains on air bubble at 55 L 88% FiO2 to maintain O2 saturations in the high 80s and low 90s. He is afebrile. Bradycardic. Blood glucose 245. He remains on DuoNeb inhalations, IV Solu-Medrol, vitamin supplements. Continued on Tessalon Perles. Anticoagulated with Pradaxa. He was initiated on Baricitinib yesterday. 2020, the patient clinically is feeling better. However, his oxidation is unchanged. He is still requiring high flow oxygen at 55 L with an FiO2 of 90%. Unable to fully extend his lungs with deep breathing because of persistent cough which is a dry cough. He is afebrile. His hemodynamically stable. D-dimer came up today and the liver from today was 34. Note that the patient takes Pradaxa on outpatient basis for long-term anticoagulation regarding previous history of vascular intervention is done in the lower extremities which was complicated by clotting. I believe this was a arterial intervention. The patient is also known to have COPD and previous myocardial infarction. In any rate, the patient has been on a combination of brillinta/pradaxa on outpatient basis. For now he is also on steroids and he is taking IV Solu-Medrol and he was started on Baricitinib . He is also on multivitamins. His taken Tessalon Perles for cough and. Blood sugar today's at 236 and the patient is diabetic. LDH level is 1165 and a CRP level is down to 1.9. No other issues otherwise for now. He is hemodynamically stable. 01/05/2021, seeing the patient for a follow-up. He remains essentially unchanged compared to yesterday. Her oxygenation has remained unchanged and he remains on high flow oxygen 55 L with an FiO2 of 90%. He is still having some dry cough. D-dimer was quite elevated and based on that we did further investigation. Doppler of the lower extremity was done and the findings were consistent with right popliteal DVT and there was a long segment of occlusion along with acute DVT of the right groin extending below the level of the right knee. No left-sided acute DVT was noted. Based on that, vascular surgery was consulted and the patient underwent a CT angiogram of the abdomen and pelvis to better visualize the arteries and veins extending to the lower extremities. The CT angiogram was completed and there was decreased enhancement and suboptimal contrast in the right iliac stent compared to the left. It was not clear if this was related to a thrombus or due to slow flow versus DVT in the involved vessel. In any rate, no further intervention was recommended and the patient was asked to continue with IV heparin. Obviously there is a concern for failure of his oral anticoagulants and vascular surgery is involved hematology on the case. Meanwhile, the patient is on steroids. He is currently on Solu-Medrol 60 mg every 6 hours and he is also on Baricitinib . His blood work from today shows a therapeutic PTT of 92. D-dimer was above 34 from yesterday. Electrodes were normal. LDH from yesterday was 1165 with a CRP level of 1.9. Hemodynamically stable. No pleurisy. No hemoptysis. Tolerating his diet. Using incentive spirometer. 01/06/2021, seeing this patient for a follow-up. He is still on high flow oxygen at 55 L with an FiO2 of 86%. While moving around and trying to take a bath, the pulse ox dropped down to the low 80s, currently his pulse ox is around 86-87%. He feels essentially the same as yesterday and probably slightly bet ter. He remains on steroids. The patient is currently on IV Solu Medrol 60 mg every 6 hours and he is also on Baricitinib. . He is afebrile. Inflammatory markers show an LDH level of 1118 which is essentially comparable to few days ago and a CRP level is at 6.1. The rest of the blood work shows a d-dimer of 18.7 which is obviously dropping. BUN is at 39 with a creatinine of 0.8. White cell count is at 7.2. The hypercoagulable workup included the anti-cardiolipin antibodies which porcelain turner to be negative. As mentioned earlier, the patient had a right popliteal DVT and there was a long segment of occlusion along the right groin extending to the knee. No evidence of any DVT on the left. Vascular surgery was consulted. CAT scan of the abdomen and pelvis was reviewed and showed the arteries and veins extending to the lower extremity. There was decreased enhancement and suboptimal contrast in the right iliac stent compared to left. He was not absolutely. This was a thrombus or it was a low flow state versus DVT. In any rate, we consulted hematology oncology and we kept the p atient on anticoagulation. We took him off the Pradaxa and patient is currently on IV heparin. Awaiting further recommendations from hematology oncology. As mentioned earlier, the anti-cardiolipin antibodies came back negative. As mentioned earlier, the patient has been on long-term antiplatelet agent with Brilinta, given to him by cardiology. 01/07/2021, the patient is feeling better. He is on a high flow system with a flow of 50 L on an FiO2 of 70%. There is improved compared to yesterday. He is sitting up on a chair. He remains on IV heparin regarding a DVT of the lower extremity. He remains on IV Solu-Medrol and Baricitinib. In terms of his inflammatory markers, the patient has an LDH level of 1118 of LDH and a CRP level of 0.8. His d-dimer was improving. No other new complaints otherwise for now. As mentioned earlier, the anti-cardiolipin antibodies and antiphospholipid antibodies came back negative. No other complaints otherwise for now. Blood work was reviewed. White cell cause of 8.3 with a hemoglobin of 13. PTT is therapeutic at 52. Electrolytes are all within normal limits. Tolerating diet. Using incentive spirometer. No other significant events. Pulse ox is currently 92-93% on above-mentioned high flow setting. Objective - Vital Signs Vital signs: Vital Signs Temp 97.9 F 01/07/21 08:00 Pulse 61 01/07/21 08:00 Resp 20 01/07/21 08:00 BP 84/55 01/07/21 08:00 Pulse Ox 91 L 01/07/21 11:10 Intake & Output 01/06/21 01/07/21 01/07/21 18:59 06:59 18:59 Intake Total 581.704 337.17 180 Output Total 375 475 175 Balance 206.704 -137.83 5 Weight 83 kg Intake: IV 65.6 Heparin Sod,Pork in 0.45% 65.6 NaCl 25,000 unit In 0.45 % NaCl 1 250ml.bag @ 18 UNITS/KG/HR 14.76 mls/hr IV .[id number] [facility] Rx#: [id number] Intake, IV Titration 96.104 97.17 Amount Heparin Sod,Pork in 0.45% 96.104 97.17 NaCl 25,000 unit In 0.45 % NaCl 1 250ml.bag @ 18 UNITS/KG/HR 14.76 mls/hr IV .[id number] [facility] Rx#: [id number] Oral 420 240 180 Output: Urine 375 475 175 Other: Voiding Method Urinal # Voids 1 1 # Bowel Movements 1 1 - Exam GENERAL EXAM: Alert, pleasant 55-year-old, on AirVo high flow oxygen at 50 L and 70% FiO2, fairly comfortable in no apparent distress. HEAD: Normocephalic. EYES: Normal reaction of pupils, equal size. NOSE: Clear with pink turbinates. THROAT: No erythema or exudates. NECK: No masses, no JVD. CHEST: No chest wall deformity. LUNGS: Equal air entry with coarse crackles in the posterior bases CVS: S1 and S2 normal with no audible murmur, regular rhythm. ABDOMEN: No hepatosplenomegaly, normal bowel sounds, no guarding or rigidity. SPINE: No scoliosis or deformity SKIN: No rashes CENTRAL NERVOUS SYSTEM: No focal deficits, tone is normal in all 4 extremities. EXTREMITIES: There is no peripheral edema. No clubbing, no cyanosis. Peripheral pulses are intact. - Labs CBC & Chem 7: 01/07/21 07:51 01/07/21 07:51 Labs: Abnormal Lab Results - Last 24 Hours (Table) 01/06/21 01/06/21 01/06/21 Range/Units 15:59 16:14 20:18 Lymphocytes # (1.0-4.8) k/uL APTT 49.6 H (22.0-30.0) sec BUN (9-20) mg/dL Glucose (74-99) mg/dL POC Glucose (mg/dL) 208 H 182 H (75-99) mg/dL Total Protein (6.3-8.2) g/dL Albumin (3.5-5.0) g/dL 01/07/21 01/07/21 01/07/21 Range/Units 06:36 07:51 07:51 Lymphocytes # 0.2 L (1.0-4.8) k/uL APTT (22.0-30.0) sec BUN 38 H (9-20) mg/dL Glucose 210 H (74-99) mg/dL POC Glucose (mg/dL) 212 H (75-99) mg/dL Total Protein 6.2 L (6.3-8.2) g/dL Albumin 3.2 L (3.5-5.0) g/dL 01/07/21 01/07/21 Range/Units 07:51 11:54 Lymphocytes # (1.0-4.8) k/uL APTT 52.4 H (22.0-30.0) sec BUN (9-20) mg/dL Glucose (74-99) mg/dL POC Glucose (mg/dL) 201 H (75-99) mg/dL Total Protein (6.3-8.2) g/dL Albumin (3.5-5.0) g/dL Assessment and Plan Plan: 1 Acute hypoxemic respiratory failure secondary to coronavirus pneumonia. Initiated on Baricitinib 01/02/2021. Consistent with diffuse bilateral pulmonary infiltrates and the patient is currently on high flow oxygen at 50 L with an FiO2 of 70%. D-dimer is elevated. LDH and CRP are both elevated. Oxygenation is improving and the patient is already feeling better sitting up on a chair. We'll repeat extremity markers tomorrow. Continue Baricitinib. Continue Solu-Medrol. Continue anticoagulation with IV heparin. 2 History of diabetes mellitus. 3 History of hypertension. 4 History of coronary artery disease. 5 History of myocardial infarction. 6 History of hyperlipidemia. 7 DVT involving the right lower extremity, failed anticoagulation with pradaxa, please refer to the CAT scan of the abdomen and pelvis and the Doppler of the lower extremity. D-dimer is declining and the patient remains on IV heparin. 8 previous history of bilateral iliac vein/femoral vein stents. Plan: Continue anticoagulation with IV heparin, The PTT is therapeutic Continued on Baricitinib, Solu-Medrol Continue bronchodilators, vitamin supplements Titrate down the FiO2 as tolerated, Currently on 50 L with an FiO2 of 70% Add incentive spirometer Prone while in bed Prognosis is guarded Follow-up chest x-ray and labs in a.m. We'll chart to wean down the FiO2 as tolerated to maintain a saturation above 90%. Clinically is feeling better. We will continue to follow
[2021-01-07] MEDS: NEBIVOLOL 5 MG TAB PO SCH (12:35)
[2021-01-07] MEDS: BARICITINIB 2 MG TABLET PO SCH (12:37)
--- NOTE | 2021-01-07 14:05 | P.PN ---
Subjective Progress Note Date: 01/07/21 Principal diagnosis: Covid 19, RLE DVT, extensive In f/u today pt resp status is unchanged, still distress with activity, CXR does not look any better. Swelling in the RLE is stable, cont on heparin drip, denies any bleeding, new swelling. Objective - Vital Signs Vital signs: Vital Signs Temp 98.1 F 01/07/21 04:00 Pulse 50 L 01/07/21 04:00 Resp 20 01/07/21 04:00 BP 95/55 01/07/21 04:00 Pulse Ox 91 L 01/07/21 08:32 Intake & Output 01/06/21 01/07/21 01/07/21 18:59 06:59 18:59 Intake Total 581.704 337.17 180 Output Total 375 475 Balance 206.704 -137.83 180 Weight 83 kg Intake: IV 65.6 Heparin Sod,Pork in 0.45% 65.6 NaCl 25,000 unit In 0.45 % NaCl 1 250ml.bag @ 18 UNITS/KG/HR 14.76 mls/hr IV .[id number] [facility] Rx#: [id number] Intake, IV Titration 96.104 97.17 Amount Heparin Sod,Pork in 0.45% 96.104 97.17 NaCl 25,000 unit In 0.45 % NaCl 1 250ml.bag @ 18 UNITS/KG/HR 14.76 mls/hr IV .[id number] [facility] Rx#: [id number] Oral 420 240 180 Output: Urine 375 475 Other: Voiding Method Urinal # Voids 1 1 # Bowel Movements 1 1 - Constitutional General appearance: Present: average body habitus, cooperative, mild distress - EENT Eyes: Present: anicteric sclerae, EOMI ENT: Present: hearing grossly normal - Labs CBC & Chem 7: 01/07/21 07:51 01/07/21 07:51 Labs: Abnormal Lab Results - Last 24 Hours (Table) 01/05/21 01/06/21 01/06/21 Range/Units Unknown 07:28 11:32 Lymphocytes # (1.0-4.8) k/uL APTT (22.0-30.0) sec Lupus Anticoag aPTT 116 H (<43) Sec(s) Lupus Anticoag PTT Mix 66 H (<43) Sec(s) Dil Fernando Viper Venom 59 H (<44) Sec(s) dRVVT 50:50 46 H (<44) Sec(s) BUN 39 H (9-20) mg/dL Glucose 188 H (74-99) mg/dL POC Glucose (mg/dL) 200 H (75-99) mg/dL Lactate Dehydrogenase 1118 H (313-618) U/L Total Protein 6.1 L (6.3-8.2) g/dL Albumin 3.1 L (3.5-5.0) g/dL 01/06/21 01/06/21 01/06/21 Range/Units 15:59 16:14 20:18 Lymphocytes # (1.0-4.8) k/uL APTT 49.6 H (22.0-30.0) sec Lupus Anticoag aPTT (<43) Sec(s) Lupus Anticoag PTT Mix (<43) Sec(s) Dil Fernando Viper Venom (<44) Sec(s) dRVVT 50:50 (<44) Sec(s) BUN (9-20) mg/dL Glucose (74-99) mg/dL POC Glucose (mg/dL) 208 H 182 H (75-99) mg/dL Lactate Dehydrogenase (313-618) U/L Total Protein (6.3-8.2) g/dL Albumin (3.5-5.0) g/dL 01/07/21 01/07/21 01/07/21 Range/Units 06:36 07:51 07:51 Lymphocytes # 0.2 L (1.0-4.8) k/uL APTT 52.4 H (22.0-30.0) sec Lupus Anticoag aPTT (<43) Sec(s) Lupus Anticoag PTT Mix (<43) Sec(s) Dil Fernando Viper Venom (<44) Sec(s) dRVVT 50:50 (<44) Sec(s) BUN (9-20) mg/dL Glucose (74-99) mg/dL POC Glucose (mg/dL) 212 H (75-99) mg/dL Lactate Dehydrogenase (313-618) U/L Total Protein (6.3-8.2) g/dL Albumin (3.5-5.0) g/dL Assessment and Plan (1) Pneumonia due to COVID-19 virus Narrative/Plan: Defer mgmt to Attending and Pulmonary Current Visit: Yes Status: Acute Priority: High Code(s): U07.1 - COVID-19; J12.82 - Pneumonia due to coronavirus disease 2018 SNOMED Code(s): 902880224371796775 (2) DVT (deep venous thrombosis) Narrative/Plan: Likely a sequela of covid infection Antiphospholipid ab testing is neg, lupus anticoagulant neg, pending beta 2 gly coprotein-incorrect test, re-ordered correct one- for final anticoagulation recommendations. Cont heparin drip for now. Pt needs to f/u with his Vascular MD in [facility] on [place] for recommendations on duration of anticoagulation because of his history. Current Visit: Yes Status: Acute Priority: High Code(s): I82.409 - ACUTE EMBOLISM AND THOMBOS UNSP DEEP VN UNSP LOWER EXTREMITY SNOMED Code(s): 306719506
[2021-01-07 16:37] LABS: Glucose,Whole Blood 215 mg/dL (75-99)
[2021-01-07] MEDS: HEPARIN SOD,PORK IN 0.45% NACL 25,000 UNIT in 0.45% NACL 1 250ML.BAG IV SCH (20:38)
[2021-01-07 20:45] LABS: Glucose,Whole Blood 178 mg/dL (75-99)
[2021-01-08] MEDS: HEPARIN SOD,PORK IN 0.45% NACL 25,000 UNIT in 0.45% NACL 1 250ML.BAG IV SCH ×2 (02:13→23:45)
[2021-01-08 05:45] LABS: Glucose,Whole Blood 181 mg/dL (75-99)
[2021-01-08] MEDS: INSULIN ASPART (NovoLOG) 100 UNIT/ML VIAL SQ SCH ×4 (06:09→20:35)
[2021-01-08] MEDS: INSULIN DETEMIR (LEVEMIR) 100 UNIT/ML SYR SQ SCH (06:09)
[2021-01-08] MEDS: PANTOPRAZOLE 40 MG TABLET PO SCH ×2 (06:09→17:06)
[2021-01-08] MEDS: methylPREDNISolone SOD SUCCI 125 MG/2 ML VIAL IV SCH ×4 (06:09→23:46)
[2021-01-08] MEDS: CHOLECALCIFEROL 25 MCG (1000 IU) TABLET PO SCH (08:22)
[2021-01-08] MEDS: ZINC SULFATE 220 MG CAP PO SCH (08:22)
[2021-01-08] MEDS: TICAGRELOR 90 MG TAB PO SCH ×2 (08:22→20:36)
[2021-01-08] MEDS: LOSARTAN 25 MG TAB PO SCH (08:22)
[2021-01-08] MEDS: ASCORBIC ACID 500 MG TAB PO SCH (08:22)
[2021-01-08 08:26] LABS: Basophils % (A) 0 %; Eosinophils % (A) 0 %; HCT 40.7 % (39.0-53.0); HGB 13.3 gm/dL (13.0-17.5); Lymphocytes # (A) 0.2 k/uL (1.0-4.8); Lymphocytes % (A) 2 %; MCH 28.6 pg (25.0-35.0); MCHC 32.7 g/dL (31.0-37.0); MCV 87.6 fL (80.0-100.0); Mean Platelet Volume 7.1; Monocytes # (A) 0.4 k/uL (0-1.0); Monocytes % (A) 4 %; Neutrophils % (A) 93 %; Platelet Count 244 k/uL (150-450); RBC 4.65 m/uL (4.30-5.90); RDW 13.1 % (11.5-15.5); WBC 9.6 k/uL (3.8-10.6)
[2021-01-08] MEDS: EZETIMIBE 10 MG TAB PO SCH (08:55)
[2021-01-08] MEDS: NEBIVOLOL 5 MG TAB PO SCH (08:55)
[2021-01-08] MEDS: ALBUTEROL HFA INHALER INHALATION PRN ×4 (08:57→20:16)
[2021-01-08 09:29] LABS: ALT 40 U/L (4-49); AST 25 U/L (17-59); African American GFR (CKD) >90 (>60 ml/min/1.73 sqM); Albumin 3.2 g/dL (3.5-5.0); Alkaline Phosphatase 51 U/L (38-126); Anion Gap 6 mmol/L; Blood Urea Nitrogen 33 mg/dL (9-20); C Reactive Protein 0.6 mg/dL (<1.0); Calcium 8.8 mg/dL (8.4-10.2); Carbon Dioxide 27 mmol/L (22-30); Chloride 102 mmol/L (98-107); Glucose 180 mg/dL (74-99); LDH 981 U/L (313-618); Non-African American GFR(CKD) >90 (>60 ml/min/1.73 sqM); Potassium 4.8 mmol/L (3.5-5.1); Sodium 135 mmol/L (137-145); Total Protein 6.2 g/dL (6.3-8.2)
[2021-01-08 11:49] LABS: Glucose,Whole Blood 264 mg/dL (75-99)
[2021-01-08] MEDS: BARICITINIB 2 MG TABLET PO SCH (12:02)
--- NOTE | 2021-01-08 12:24 | P.PN ---
Subjective Progress Note Date: 01/08/21 Hospital course: Patient is a 55-year-old male with a past medical history of diabetes mellitus, coronary artery disease with history of myocardial infarction and stent who presented with complaints of shortness of breath. He was transferred here from [place] and admitted under our services with consultation to pulmonology for acute hypoxic respiratory failure secondary to Covid 19 pneumonia, ARDS, and RLE DVT. Physical examination: Inflammatory markers improving D-dimer 9.52, LDH 981, and CRP of 0.6. CBC and BMP showing no significant abnormalities. Patient remains on heparin infusion for treatment of DVT. He remains on AIRVO with FiO2 72% and maintaining SpO2 at 92%. Patient is sitting up in chair at bedside today. He reports continued weakness and shortness of breath. Patient with depressed affect and when asked he states he is just down about having such a prolonged hospital stay. He denies having any headache, lightheadedness, dizziness, chest pain, palpitations, nausea, or vomiting. General: Ill-appearing, mild distress, appears at stated age Derm: warm, dry Head: atraumatic, normocephalic, symmetric Eyes: EOMI, no lid lag, anicteric sclera Mouth: no lip lesion, mucus membranes moist Cardiovascular: S1S2 reg, no murmur, positive posterior tibial pulse bilateral, Lungs: Coarse rhonchi bilaterally. Positive conversational dyspnea 4-5 words. No accessory muscle usage. Abdominal: soft, nontender to palpation, no guarding, no appreciable organomegaly Ext: no gross muscle atrophy, no edema, no contractures Neuro: CN II-XI grossly intact, no focal neuro deficits Psych: Alert, oriented, appropriate affect Acute hypoxic respiratory failure secondary to COVID-19 pneumonia COVID-19 pneumonia Right lower extremity DVT ARDS -Solumedrol day 6 -Baricitinib day 6 of 14 -Pulmonary following, appreciate further recommendations. -Continuation of Zinc, vitamin C, vitamin D -Follow inflammatory markers -Continuation of IV heparin for treatment of DVT -Hematology following, appreciate further recommendations -Anti-cardiolipin antibodies and antiphospholipid antibodies negative, beta 2 microglobulin normal findings at 1.40. -Inflammatory markers improving D-dimer 9.52, LDH 981, and CRP of 0.6. -Vascualr surgery following, further recommendations appreciated -Close follow-up with vascular surgery in [place] -Encourage prone positioning Diabetes mellitus type II -Jardiance and metformin on hold -Glycemic protocol with NovoLog sliding scale -Levemir -Follow blood sugars Hypertension, controlled -Monitor vital signs and Continue with Bystolic Chronic medical conditions include: Coronary artery disease History of Myocardial infarction Dyslipidemia CODE STATUS: Full code DVT prophylaxis: Heparin gtt Discussed with: Patient and RN Anticipated discharge: Clinical course to determine Anticipated discharge place: home, possibly with homecare A total of 45 minutes was spent on the care of this complex patient more than 50% of the time was spent in counseling and care coordination. Objective - Vital Signs Vital signs: Vital Signs Temp 97.8 F 01/08/21 04:00 Pulse 50 L 01/08/21 04:00 Resp 20 01/08/21 04:00 BP 90/58 01/08/21 04:00 Pulse Ox 92 L 01/08/21 04:00 Intake & Output 01/07/21 01/08/21 01/08/21 18:59 06:59 18:59 Intake Total 180 734.887 Output Total 375 450 Balance -195 284.887 Weight 84 kg Intake: Intake, IV Titration 194.887 Amount Heparin Sod,Pork in 0.45% 194.887 NaCl 25,000 unit In 0.45 % NaCl 1 250ml.bag @ 18 UNITS/KG/HR 14.76 mls/hr IV .[id number] [facility] Rx#: [id number] Oral 180 540 Output: Urine 375 450 Other: Voiding Method Urinal # Voids 2 # Bowel Movements 1 - Labs CBC & Chem 7: 01/08/21 07:51 01/08/21 07:51 Labs: Abnormal Lab Results - Last 24 Hours (Table) 01/07/21 01/07/21 01/07/21 Range/Units 07:51 07:51 07:51 Lymphocytes # 0.2 L (1.0-4.8) k/uL APTT (22.0-30.0) sec BUN 38 H (9-20) mg/dL Glucose 210 H (74-99) mg/dL POC Glucose (mg/dL) (75-99) mg/dL Hemoglobin A1c 7.1 H (4.0-6.0) % Total Protein 6.2 L (6.3-8.2) g/dL Albumin 3.2 L (3.5-5.0) g/dL 01/07/21 01/07/21 01/07/21 Range/Units 07:51 11:54 16:35 Lymphocytes # (1.0-4.8) k/uL APTT 52.4 H (22.0-30.0) sec BUN (9-20) mg/dL Glucose (74-99) mg/dL POC Glucose (mg/dL) 201 H 215 H (75-99) mg/dL Hemoglobin A1c (4.0-6.0) % Total Protein (6.3-8.2) g/dL Albumin (3.5-5.0) g/dL 01/07/21 01/08/21 Range/Units 20:34 05:43 Lymphocytes # (1.0-4.8) k/uL APTT (22.0-30.0) sec BUN (9-20) mg/dL Glucose (74-99) mg/dL POC Glucose (mg/dL) 178 H 181 H (75-99) mg/dL Hemoglobin A1c (4.0-6.0) % Total Protein (6.3-8.2) g/dL Albumin (3.5-5.0) g/dL
--- NOTE | 2021-01-08 13:39 | P.PN ---
Subjective Progress Note Date: 01/08/21 56-year-old male, seen in the emergency room, on December 31. The patient has a history of diabetes and hypertension. He Presents to the emergency room complaining of shortness of breath. The patient was apparently transferred from [facility] and [place]. There he was apparently diagnosed with COVID pneumonia. The patient was diagnosed with bilateral pneumonia secondary to coronavirus. The patient was transferred down on BiPAP therapy. He was quite anxious. More recently, he was transitioned over to high flow nasal O2. He denied any chest pain or chest discomfort. There is no fever or chills. The patient has been having symptoms for at least 10 days and may be a bit longer. The patient has not received a coronavirus vaccine. Currently, the patient is on AIRVO, at 40 L/m and 55%. His saturations are in the low 90s. White count 2.43, hemoglobin 13.8, hematocrit 39.8, and platelet count 137,000. PT 10.4, INR 1, fibrinogen 524, PTT 25.1, and d-dimer 0.83. Sodium was 135, potassium 4, chloride 99, CO2 24, anion gap 12, BUN 28, creatinine 1. The patient's CK was 428. LDH was 647, and C-reactive protein was 7.9. Chest x-ray showed diffuse bilateral infiltrates. Currently, the patient's on albuterol inhaler, Decadron, Pradaxa, and his usual cardiac medications. Progress note dated 01/01/2021. This is a 56-year-old male, again seen in room 369. The patient has a history of diabetes and hypertension, and presented to the emergency department with sh ortness of breath. He was transferred down from [facility] in [place]. The patient apparently has been tested a couple times for coronavirus, and tested negative or inconclusive. He was retested here. The patient is being treated as if he has coronavirus pneumonia. Currently, he is on AIRVO. He was on 55 L/m and an FiO2 of 80%. The patient will be sent down on BiPAP for a CT angiogram. There is no new laboratory data today. The patient's major issue is shortness of breath and anxiety. The patient is seen today 01/02/2021 and follow-up on the selective care unit. He is currently resting fairly comfortably in bed. Still short of breath with minimal activity. Short of breath with conversation. He is currently on air bubble high flow oxygen at 55 L and 80% FiO2. He did test positive for the coronavirus by PCR here. White count 7.6. Hemoglobin 13.1. Lymphocytes 0.4. D-dimer 1.3. Sodium 139. Potassium 30.8. Creatinine 0.70. Glucose 187. He remains on DuoNeb inhalations, IV Solu-Medrol, vitamin supplements. Anticoagulated with Pradaxa. CT angiogram ruled out pulmonary embolism. There is bilateral multifocal and confluent groundglass opacities and organizing consolidation consistent with COVID-19 infection The patient is 01/03/2021 in follow-up on selective care unit. He is currently resting fairly comfortably in bed. Awake and alert in no acute distress. Continues with shortness of breath on exertion. He remains on air bubble at 55 L 88% FiO2 to maintain O2 saturations in the high 80s and low 90s. He is afebrile. Bradycardic. Blood glucose 245. He remains on DuoNeb inhalations, IV Solu-Medrol, vitamin supplements. Continued on Tessalon Perles. Anticoagulated with Pradaxa. He was initiated on Baricitinib yesterday. 2020, the patient clinically is feeling better. However, his oxidation is unchanged. He is still requiring high flow oxygen at 55 L with an FiO2 of 90%. Unable to fully extend his lungs with deep breathing because of persistent cough which is a dry cough. He is afebrile. His hemodynamically stable. D-dimer came up today and the liver from today was 34. Note that the patient takes Pradaxa on outpatient basis for long-term anticoagulation regarding previous history of vascular intervention is done in the lower extremities which was complicated by clotting. I believe this was a arterial intervention. The patient is also known to have COPD and previous myocardial infarction. In any rate, the patient has been on a combination of brillinta/pradaxa on outpatient basis. For now he is also on steroids and he is taking IV Solu-Medrol and he was started on Baricitinib . He is also on multivitamins. His taken Tessalon Perles for cough and. Blood sugar today's at 236 and the patient is diabetic. LDH level is 1165 and a CRP level is down to 1.9. No other issues otherwise for now. He is hemodynamically stable. 01/05/2021, seeing the patient for a follow-up. He remains essentially unchanged compared to yesterday. Her oxygenation has remained unchanged and he remains on high flow oxygen 55 L with an FiO2 of 90%. He is still having some dry cough. D-dimer was quite elevated and based on that we did further investigation. Doppler of the lower extremity was done and the findings were consistent with right popliteal DVT and there was a long segment of occlusion along with acute DVT of the right groin extending below the level of the right knee. No left-sided acute DVT was noted. Based on that, vascular surgery was consulted and the patient underwent a CT angiogram of the abdomen and pelvis to better visualize the arteries and veins extending to the lower extremities. The CT angiogram was completed and there was decreased enhancement and suboptimal contrast in the right iliac stent compared to the left. It was not clear if this was related to a thrombus or due to slow flow versus DVT in the involved vessel. In any rate, no further intervention was recommended and the patient was asked to continue with IV heparin. Obviously there is a concern for failure of his oral anticoagulants and vascular surgery is involved hematology on the case. Meanwhile, the patient is on steroids. He is currently on Solu-Medrol 60 mg every 6 hours and he is also on Baricitinib . His blood work from today shows a therapeutic PTT of 92. D-dimer was above 34 from yesterday. Electrodes were normal. LDH from yesterday was 1165 with a CRP level of 1.9. Hemodynamically stable. No pleurisy. No hemoptysis. Tolerating his diet. Using incentive spirometer. 01/06/2021, seeing this patient for a follow-up. He is still on high flow oxygen at 55 L with an FiO2 of 86%. While moving around and trying to take a bath, the pulse ox dropped down to the low 80s, currently his pulse ox is around 86-87%. He feels essentially the same as yesterday and probably slightly bet ter. He remains on steroids. The patient is currently on IV Solu Medrol 60 mg every 6 hours and he is also on Baricitinib. . He is afebrile. Inflammatory markers show an LDH level of 1118 which is essentially comparable to few days ago and a CRP level is at 6.1. The rest of the blood work shows a d-dimer of 18.7 which is obviously dropping. BUN is at 39 with a creatinine of 0.8. White cell count is at 7.2. The hypercoagulable workup included the anti-cardiolipin antibodies which rubber turner to be negative. As mentioned earlier, the patient had a right popliteal DVT and there was a long segment of occlusion along the right groin extending to the knee. No evidence of any DVT on the left. Vascular surgery was consulted. CAT scan of the abdomen and pelvis was reviewed and showed the arteries and veins extending to the lower extremity. There was decreased enhancement and suboptimal contrast in the right iliac stent compared to left. He was not absolutely. This was a thrombus or it was a low flow state versus DVT. In any rate, we consulted hematology oncology and we kept the p atient on anticoagulation. We took him off the Pradaxa and patient is currently on IV heparin. Awaiting further recommendations from hematology oncology. As mentioned earlier, the anti-cardiolipin antibodies came back negative. As mentioned earlier, the patient has been on long-term antiplatelet agent with Brilinta, given to him by cardiology. 01/07/2021, the patient is feeling better. He is on a high flow system with a flow of 50 L on an FiO2 of 70%. There is improved compared to yesterday. He is sitting up on a chair. He remains on IV heparin regarding a DVT of the lower extremity. He remains on IV Solu-Medrol and Baricitinib. In terms of his inflammatory markers, the patient has an LDH level of 1118 of LDH and a CRP level of 0.8. His d-dimer was improving. No other new complaints otherwise for now. As mentioned earlier, the anti-cardiolipin antibodies and antiphospholipid antibodies came back negative. No other complaints otherwise for now. Blood work was reviewed. White cell cause of 8.3 with a hemoglobin of 13. PTT is therapeutic at 52. Electrolytes are all within normal limits. Tolerating diet. Using incentive spirometer. No other significant events. Pulse ox is currently 92-93% on above-mentioned high flow setting. 01/08/2021, the patient remains on high flow oxygen with 50 L with an FiO2 of 70% and this incision same setting as yesterday. He remains on IV Solu-Medrol and Baricitinib. No new complaints. Sitting up on a recliner. He remains on IV heparin. In terms of his blood work, his d-dimer is at 9.5 which is lower, rest of the blood work shows normal electrolytes, his LDH level is declining down to 981 and a CRP level is down to 0.6. No bleeding complications. No oropharyngeal candidiasis. He has a good appetite. No nausea or emesis. No other complaints otherwise for now. We'll try to gradually wean down his FiO2. Hemoglobin stable at 13.3 and a white cell count is at 9.6. Objective - Vital Signs Vital signs: Vital Signs Temp 97.6 F 01/08/21 12:00 Pulse 60 01/08/21 12:54 Resp 18 01/08/21 12:54 BP 99/58 01/08/21 12:00 Pulse Ox 92 L 01/08/21 12:00 Intake & Output 01/07/21 01/08/21 01/08/21 18:59 06:59 18:59 Intake Total 180 734.887 120 Output Total 375 450 Balance -195 284.887 120 Weight 84 kg Intake: Intake, IV Titration 194.887 Amount Heparin Sod,Pork in 0.45% 194.887 NaCl 25,000 unit In 0.45 % NaCl 1 250ml.bag @ 18 UNITS/KG/HR 14.76 mls/hr IV .[id number] [facility] Rx#: [id number] Oral 180 540 120 Output: Urine 375 450 Other: Voiding Method Urinal # Voids 2 1 # Bowel Movements 1 - Exam GENERAL EXAM: Alert, pleasant 55-year-old, on AirVo high flow oxygen at 50 L and 70% FiO2, fairly comfortable in no apparent distress. HEAD: Normocephalic. EYES: Normal reaction of pupils, equal size. NOSE: Clear with pink turbinates. THROAT: No erythema or exudates. NECK: No masses, no JVD. CHEST: No chest wall deformity. LUNGS: Equal air entry with coarse crackles in the posterior bases CVS: S1 and S2 normal with no audible murmur, regular rhythm. ABDOMEN: No hepatosplenomegaly, normal bowel sounds, no guarding or rigidity. SPINE: No scoliosis or deformity SKIN: No rashes CENTRAL NERVOUS SYSTEM: No focal deficits, tone is normal in all 4 extremities. EXTREMITIES: There is no peripheral edema. No clubbing, no cyanosis. Peripheral pulses are intact. - Labs CBC & Chem 7: 01/08/21 07:51 01/08/21 07:51 Labs: Abnormal Lab Results - Last 24 Hours (Table) 01/07/21 01/07/21 01/07/21 Range/Units 07:51 16:35 20:34 Neutrophils # (1.3-7.7) k/uL Lymphocytes # (1.0-4.8) k/uL APTT (22.0-30.0) sec D-Dimer (<0.60) mg/L FEU Sodium (137-145) mmol/L BUN (9-20) mg/dL Glucose (74-99) mg/dL POC Glucose (mg/dL) 215 H 178 H (75-99) mg/dL Hemoglobin A1c 7.1 H (4.0-6.0) % Lactate Dehydrogenase (313-618) U/L Total Protein (6.3-8.2) g/dL Albumin (3.5-5.0) g/dL 01/08/21 01/08/21 01/08/21 Range/Units 05:43 07:51 07:51 Neutrophils # 9.0 H (1.3-7.7) k/uL Lymphocytes # 0.2 L (1.0-4.8) k/uL APTT (22.0-30.0) sec D-Dimer (<0.60) mg/L FEU Sodium 135 L (137-145) mmol/L BUN 33 H (9-20) mg/dL Glucose 180 H (74-99) mg/dL POC Glucose (mg/dL) 181 H (75-99) mg/dL Hemoglobin A1c (4.0-6.0) % Lactate Dehydrogenase 981 H (313-618) U/L Total Protein 6.2 L (6.3-8.2) g/dL Albumin 3.2 L (3.5-5.0) g/dL 01/08/21 01/08/21 Range/Units 07:51 11:48 Neutrophils # (1.3-7.7) k/uL Lymphocytes # (1.0-4.8) k/uL APTT 55.0 H (22.0-30.0) sec D-Dimer 9.52 H (<0.60) mg/L FEU Sodium (137-145) mmol/L BUN (9-20) mg/dL Glucose (74-99) mg/dL POC Glucose (mg/dL) 264 H (75-99) mg/dL Hemoglobin A1c (4.0-6.0) % Lactate Dehydrogenase (313-618) U/L Total Protein (6.3-8.2) g/dL Albumin (3.5-5.0) g/dL Assessment and Plan Plan: 1 Acute hypoxemic respiratory failure secondary to coronavirus pneumonia. Initiated on Baricitinib 01/02/2021. Consistent with diffuse bilateral pulmonary infiltrates and the patient is currently on high flow oxygen at 50 L with an FiO2 of 70%. D-dimer is elevated. LDH and CRP are both elevated. Oxygenation is improving and the patient is already feeling better sitting up on a chair. We'll repeat extremity markers tomorrow. Continue Baricitinib. Continue Solu-Medrol. Continue anticoagulation with IV heparin. Noted on today's evaluation patient's condition is stable. LDH is dropping. D-dimer is also dropping and the patient remains on IV heparin. 2 History of diabetes mellitus. 3 History of hypertension. 4 History of coronary artery disease. 5 History of myocardial infarction. 6 History of hyperlipidemia. 7 DVT involving the right lower extremity, failed anticoagulation with pradaxa, please refer to the CAT scan of the abdomen and pelvis and the Doppler of the lower extremity. D-dimer is declining and the patient remains on IV heparin. 8 previous history of bilateral iliac vein/femoral vein stents. Plan: Continue anticoagulation with IV heparin, The PTT is therapeutic Continued on Baricitinib, Solu-Medrol at a dose of 60 mg IV every 6 hours. Continue bronchodilators, vitamin supplements Titrate down the FiO2 as tolerated, Currently on 50 L with an FiO2 of 70% , with titrate down the FiO2 down to 60% and monitor his pulse ox Add incentive spirometer Prone while in bed Prognosis is guarded Follow-up in a.m.
[2021-01-08 16:33] LABS: Glucose,Whole Blood 245 mg/dL (75-99)
[2021-01-08 20:15] LABS: Glucose,Whole Blood 164 mg/dL (75-99)
[2021-01-09 06:29] LABS: Glucose,Whole Blood 176 mg/dL (75-99)
[2021-01-09] MEDS: methylPREDNISolone SOD SUCCI 125 MG/2 ML VIAL IV SCH ×4 (06:39→22:59)
[2021-01-09] MEDS: INSULIN ASPART (NovoLOG) 100 UNIT/ML VIAL SQ SCH ×4 (06:39→20:53)
[2021-01-09] MEDS: INSULIN DETEMIR (LEVEMIR) 100 UNIT/ML SYR SQ SCH (06:39)
[2021-01-09] MEDS: PANTOPRAZOLE 40 MG TABLET PO SCH ×2 (06:39→17:16)
[2021-01-09] MEDS: ZINC SULFATE 220 MG CAP PO SCH (08:16)
[2021-01-09] MEDS: NEBIVOLOL 5 MG TAB PO SCH (08:16)
[2021-01-09] MEDS: TICAGRELOR 90 MG TAB PO SCH ×2 (08:16→20:53)
[2021-01-09] MEDS: LOSARTAN 25 MG TAB PO SCH (08:16)
[2021-01-09] MEDS: ASCORBIC ACID 500 MG TAB PO SCH (08:16)
[2021-01-09] MEDS: EZETIMIBE 10 MG TAB PO SCH (08:17)
[2021-01-09] MEDS: CHOLECALCIFEROL 25 MCG (1000 IU) TABLET PO SCH (08:17)
[2021-01-09] MEDS: ALBUTEROL HFA INHALER INHALATION PRN ×2 (08:18→19:37)
[2021-01-09 09:56] LABS: Basophils % (A) 0 %; Eosinophils % (A) 0 %; HCT 40.8 % (39.0-53.0); HGB 13.3 gm/dL (13.0-17.5); Lymphocytes # (A) 0.2 k/uL (1.0-4.8); Lymphocytes % (A) 1 %; MCH 28.3 pg (25.0-35.0); MCHC 32.7 g/dL (31.0-37.0); MCV 86.6 fL (80.0-100.0); Mean Platelet Volume 7.4; Monocytes # (A) 0.4 k/uL (0-1.0); Monocytes % (A) 3 %; Neutrophils # (A) 10.8 k/uL (1.3-7.7); Neutrophils % (A) 95 %; Platelet Count 209 k/uL (150-450); RBC 4.72 m/uL (4.30-5.90); WBC 11.4 k/uL (3.8-10.6)
[2021-01-09 10:13] LABS: ALT 46 U/L (4-49); AST 28 U/L (17-59); African American GFR (CKD) >90 (>60 ml/min/1.73 sqM); Albumin 3.1 g/dL (3.5-5.0); Alkaline Phosphatase 53 U/L (38-126); Anion Gap 6 mmol/L; Blood Urea Nitrogen 33 mg/dL (9-20); Calcium 8.6 mg/dL (8.4-10.2); Carbon Dioxide 27 mmol/L (22-30); Chloride 101 mmol/L (98-107); Glucose 218 mg/dL (74-99); Non-African American GFR(CKD) >90 (>60 ml/min/1.73 sqM); Potassium 4.6 mmol/L (3.5-5.1); Sodium 134 mmol/L (137-145); Total Bilirubin 1.1 mg/dL (0.2-1.3)
--- NOTE | 2021-01-09 11:47 | P.PN ---
Subjective Progress Note Date: 01/09/21 56-year-old male, seen in the emergency room, on December 31. The patient has a history of diabetes and hypertension. He Presents to the emergency room complaining of shortness of breath. The patient was apparently transferred from [facility] and [place]. There he was apparently diagnosed with COVID pneumonia. The patient was diagnosed with bilateral pneumonia secondary to coronavirus. The patient was transferred down on BiPAP therapy. He was quite anxious. More recently, he was transitioned over to high flow nasal O2. He denied any chest pain or chest discomfort. There is no fever or chills. The patient has been having symptoms for at least 10 days and may be a bit longer. The patient has not received a coronavirus vaccine. Currently, the patient is on AIRVO, at 40 L/m and 55%. His saturations are in the low 90s. White count 2.43, hemoglobin 13.8, hematocrit 39.8, and platelet count 137,000. PT 10.4, INR 1, fibrinogen 524, PTT 25.1, and d-dimer 0.83. Sodium was 135, potassium 4, chloride 99, CO2 24, anion gap 12, BUN 28, creatinine 1. The patient's CK was 428. LDH was 647, and C-reactive protein was 7.9. Chest x-ray showed diffuse bilateral infiltrates. Currently, the patient's on albuterol inhaler, Decadron, Pradaxa, and his usual cardiac medications. Progress note dated 01/01/2021. This is a 56-year-old male, again seen in room 369. The patient has a history of diabetes and hypertension, and presented to the emergency department with sh ortness of breath. He was transferred down from [facility] in [place]. The patient apparently has been tested a couple times for coronavirus, and tested negative or inconclusive. He was retested here. The patient is being treated as if he has coronavirus pneumonia. Currently, he is on AIRVO. He was on 55 L/m and an FiO2 of 80%. The patient will be sent down on BiPAP for a CT angiogram. There is no new laboratory data today. The patient's major issue is shortness of breath and anxiety. The patient is seen today 01/02/2021 and follow-up on the selective care unit. He is currently resting fairly comfortably in bed. Still short of breath with minimal activity. Short of breath with conversation. He is currently on air bubble high flow oxygen at 55 L and 80% FiO2. He did test positive for the coronavirus by PCR here. White count 7.6. Hemoglobin 13.1. Lymphocytes 0.4. D-dimer 1.3. Sodium 139. Potassium 30.8. Creatinine 0.70. Glucose 187. He remains on DuoNeb inhalations, IV Solu-Medrol, vitamin supplements. Anticoagulated with Pradaxa. CT angiogram ruled out pulmonary embolism. There is bilateral multifocal and confluent groundglass opacities and organizing consolidation consistent with COVID-19 infection The patient is 01/03/2021 in follow-up on selective care unit. He is currently resting fairly comfortably in bed. Awake and alert in no acute distress. Continues with shortness of breath on exertion. He remains on air bubble at 55 L 88% FiO2 to maintain O2 saturations in the high 80s and low 90s. He is afebrile. Bradycardic. Blood glucose 245. He remains on DuoNeb inhalations, IV Solu-Medrol, vitamin supplements. Continued on Tessalon Perles. Anticoagulated with Pradaxa. He was initiated on Baricitinib yesterday. 2020, the patient clinically is feeling better. However, his oxidation is unchanged. He is still requiring high flow oxygen at 55 L with an FiO2 of 90%. Unable to fully extend his lungs with deep breathing because of persistent cough which is a dry cough. He is afebrile. His hemodynamically stable. D-dimer came up today and the liver from today was 34. Note that the patient takes Pradaxa on outpatient basis for long-term anticoagulation regarding previous history of vascular intervention is done in the lower extremities which was complicated by clotting. I believe this was a arterial intervention. The patient is also known to have COPD and previous myocardial infarction. In any rate, the patient has been on a combination of brillinta/pradaxa on outpatient basis. For now he is also on steroids and he is taking IV Solu-Medrol and he was started on Baricitinib . He is also on multivitamins. His taken Tessalon Perles for cough and. Blood sugar today's at 236 and the patient is diabetic. LDH level is 1165 and a CRP level is down to 1.9. No other issues otherwise for now. He is hemodynamically stable. 01/05/2021, seeing the patient for a follow-up. He remains essentially unchanged compared to yesterday. Her oxygenation has remained unchanged and he remains on high flow oxygen 55 L with an FiO2 of 90%. He is still having some dry cough. D-dimer was quite elevated and based on that we did further investigation. Doppler of the lower extremity was done and the findings were consistent with right popliteal DVT and there was a long segment of occlusion along with acute DVT of the right groin extending below the level of the right knee. No left-sided acute DVT was noted. Based on that, vascular surgery was consulted and the patient underwent a CT angiogram of the abdomen and pelvis to better visualize the arteries and veins extending to the lower extremities. The CT angiogram was completed and there was decreased enhancement and suboptimal contrast in the right iliac stent compared to the left. It was not clear if this was related to a thrombus or due to slow flow versus DVT in the involved vessel. In any rate, no further intervention was recommended and the patient was asked to continue with IV heparin. Obviously there is a concern for failure of his oral anticoagulants and vascular surgery is involved hematology on the case. Meanwhile, the patient is on steroids. He is currently on Solu-Medrol 60 mg every 6 hours and he is also on Baricitinib . His blood work from today shows a therapeutic PTT of 92. D-dimer was above 34 from yesterday. Electrodes were normal. LDH from yesterday was 1165 with a CRP level of 1.9. Hemodynamically stable. No pleurisy. No hemoptysis. Tolerating his diet. Using incentive spirometer. 01/06/2021, seeing this patient for a follow-up. He is still on high flow oxygen at 55 L with an FiO2 of 86%. While moving around and trying to take a bath, the pulse ox dropped down to the low 80s, currently his pulse ox is around 86-87%. He feels essentially the same as yesterday and probably slightly bet ter. He remains on steroids. The patient is currently on IV Solu Medrol 60 mg every 6 hours and he is also on Baricitinib. . He is afebrile. Inflammatory markers show an LDH level of 1118 which is essentially comparable to few days ago and a CRP level is at 6.1. The rest of the blood work shows a d-dimer of 18.7 which is obviously dropping. BUN is at 39 with a creatinine of 0.8. White cell count is at 7.2. 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 As mentioned earlier, the patient had a right popliteal DVT and there was a long segment of occlusion along the right groin extending to the knee. No evidence of any DVT on the left. Vascular surgery was consulted. CAT scan of the abdomen and pelvis was reviewed and showed the arteries and veins extending to the lower extremity. There was decreased enhancement and suboptimal contrast in the right iliac stent compared to left. He was not absolutely. This was a thrombus or it was a low flow state versus DVT. In any rate, we consulted hematology oncology and we kept the p atient on anticoagulation. We took him off the Pradaxa and patient is currently on IV heparin. Awaiting further recommendations from hematology oncology. As mentioned earlier, the anti-cardiolipin antibodies came back negative. As mentioned earlier, the patient has been on long-term antiplatelet agent with Brilinta, given to him by cardiology. 01/07/2021, the patient is feeling better. He is on a high flow system with a flow of 50 L on an FiO2 of 70%. There is improved compared to yesterday. He is sitting up on a chair. He remains on IV heparin regarding a DVT of the lower extremity. He remains on IV Solu-Medrol and Baricitinib. In terms of his inflammatory markers, the patient has an LDH level of 1118 of LDH and a CRP level of 0.8. His d-dimer was improving. No other new complaints otherwise for now. As mentioned earlier, the anti-cardiolipin antibodies and antiphospholipid antibodies came back negative. No other complaints otherwise for now. Blood work was reviewed. White cell cause of 8.3 with a hemoglobin of 13. PTT is therapeutic at 52. Electrolytes are all within normal limits. Tolerating diet. Using incentive spirometer. No other significant events. Pulse ox is currently 92-93% on above-mentioned high flow setting. 01/08/2021, the patient remains on high flow oxygen with 50 L with an FiO2 of 70% and this incision same setting as yesterday. He remains on IV Solu-Medrol and Baricitinib. No new complaints. Sitting up on a recliner. He remains on IV heparin. In terms of his blood work, his d-dimer is at 9.5 which is lower, rest of the blood work shows normal electrolytes, his LDH level is declining down to 981 and a CRP level is down to 0.6. No bleeding complications. No oropharyngeal candidiasis. He has a good appetite. No nausea or emesis. No other complaints otherwise for now. We'll try to gradually wean down his FiO2. Hemoglobin stable at 13.3 and a white cell count is at 9.6. 01/09/2021, the patient is being seen for a follow-up. The patient is a case of COVID-19 related pneumonia with respiratory failure. He remains on high flow oxygen at 15 L with an FiO2 of 70%. The patient remains on IV Solu-Medrol. The patient is also on Baricitinib 4 mg once a day. We were thinking of weaning the FiO2 slightly yesterday. Nevertheless, yesterday evening, the patient had a cough and spelled and he had an oxygen desaturation. As such, he was kept on the same oxygen flow. His current pulse ox is 91%. He still desaturates with limited amount of activity as he recovers with mobility and movement. As such, his condition is essentially unchanged. The white cell count is 11.4. Platelet counts are 209. PTT is therapeutic at 50.9. BUN is 33 with a creatinine of 0.9. LFTs are within normal limits. His taken his oral intake without any major difficulties. No nausea. No vomiting. No diarrhea. No chest pain. No altered mentation. He alternates between his bed and his recliner. Objective - Vital Signs Vital signs: Vital Signs Temp 97.9 F 01/09/21 08:00 Pulse 62 01/09/21 08:00 Resp 22 01/09/21 08:00 BP 98/59 01/09/21 08:00 Pulse Ox 93 L 01/09/21 08:19 Intake & Output 01/08/21 01/09/21 01/09/21 18:59 06:59 18:59 Intake Total 120 372.357 Output Total 600 Balance 120 372.357 -600 Weight 83 kg Intake: Intake, IV Titration 222.357 Amount Heparin Sod,Pork in 0.45% 222.357 NaCl 25,000 unit In 0.45 % NaCl 1 250ml.bag @ 18 UNITS/KG/HR 14.76 mls/hr IV .[id number] [facility] Rx#: [id number] Oral 120 150 Output: Urine 600 Other: Voiding Method Bedpan Urinal Urinal # Voids 1 1 # Bowel Movements 1 - Exam GENERAL EXAM: Alert, pleasant 55-year-old, on AirVo high flow oxygen at 50 L and 70% FiO2, fairly comfortable in no apparent distress. Breathing is slightly labored on today's evaluation HEAD: Normocephalic. EYES: Normal reaction of pupils, equal size. NOSE: Clear with pink turbinates. THROAT: No erythema or exudates. NECK: No masses, no JVD. CHEST: No chest wall deformity. LUNGS: Equal air entry with coarse crackles in the posterior bases CVS: S1 and S2 normal with no audible murmur, regular rhythm. ABDOMEN: No hepatosplenomegaly, normal bowel sounds, no guarding or rigidity. SPINE: No scoliosis or deformity SKIN: No rashes CENTRAL NERVOUS SYSTEM: No focal deficits, tone is normal in all 4 extremities. EXTREMITIES: There is no peripheral edema. No clubbing, no cyanosis. Peripheral pulses are intact. - Labs CBC & Chem 7: 01/09/21 09:04 01/09/21 09:04 Labs: Abnormal Lab Results - Last 24 Hours (Table) 01/08/21 01/08/21 01/08/21 Range/Units 11:48 16:31 20:14 WBC (3.8-10.6) k/uL Neutrophils # (1.3-7.7) k/uL Lymphocytes # (1.0-4.8) k/uL APTT (22.0-30.0) sec Sodium (137-145) mmol/L BUN (9-20) mg/dL Glucose (74-99) mg/dL POC Glucose (mg/dL) 264 H 245 H 164 H (75-99) mg/dL Total Protein (6.3-8.2) g/dL Albumin (3.5-5.0) g/dL 01/09/21 01/09/21 01/09/21 Range/Units 06:27 09:04 09:04 WBC 11.4 H (3.8-10.6) k/uL Neutrophils # 10.8 H (1.3-7.7) k/uL Lymphocytes # 0.2 L (1.0-4.8) k/uL APTT (22.0-30.0) sec Sodium 134 L (137-145) mmol/L BUN 33 H (9-20) mg/dL Glucose 218 H (74-99) mg/dL POC Glucose (mg/dL) 176 H (75-99) mg/dL Total Protein 6.0 L (6.3-8.2) g/dL Albumin 3.1 L (3.5-5.0) g/dL 01/09/21 Range/Units 09:04 WBC (3.8-10.6) k/uL Neutrophils # (1.3-7.7) k/uL Lymphocytes # (1.0-4.8) k/uL APTT 50.9 H (22.0-30.0) sec Sodium (137-145) mmol/L BUN (9-20) mg/dL Glucose (74-99) mg/dL POC Glucose (mg/dL) (75-99) mg/dL Total Protein (6.3-8.2) g/dL Albumin (3.5-5.0) g/dL Assessment and Plan Plan: 1 Acute hypoxemic respiratory failure secondary to coronavirus pneumonia. Initiated on Baricitinib 01/02/2021. Consistent with diffuse bilateral pulmonary infiltrates and the patient is currently on high flow oxygen at 50 L with an FiO2 of 70%. D-dimer is elevated. LDH and CRP are both elevated. Oxy genation is still on changes and the patient continues to have difficulties with oxygenation and breathing. He is breathing slightly labored on today's evaluation. He had a cough and spell yesterday during which she desaturated. As such, he was kept on the same settings of 15 L oxygen with an FiO2 of 70%. He remains on a combination of IV Solu-Medrol on Baricitinib. He remains on IV heparin. 2 History of diabetes mellitus. 3 History of hypertension. 4 History of coronary artery disease. 5 History of myocardial infarction. 6 History of hyperlipidemia. 7 DVT involving the right lower extremity, failed anticoagulation with pradaxa, please refer to the CAT scan of the abdomen and pelvis and the Doppler of the lower extremity. D-dimer is declining and the patient remains on IV heparin. 8 previous history of bilateral iliac vein/femoral vein stents. Plan: No change in his setting and he will be kept on 50 L an FiO2 of 70% Continue anticoagulation with IV heparin, The PTT is therapeutic Continued on Baricitinib, Solu-Medrol at a dose of 60 mg IV every 6 hours. Continue bronchodilators, vitamin supplements incentive spirometer Prone while in bed Prognosis is guarded Blood work was noted and no abnormalities. Repeat inflammatory markers in the morning. Repeat chest x-ray in the morning. We'll continue to follow. Follow-up in a.m.
[2021-01-09 12:06] LABS: Glucose,Whole Blood 195 mg/dL (75-99)
[2021-01-09] MEDS: BARICITINIB 2 MG TABLET PO SCH (12:15)
[2021-01-09] MEDS: HEPARIN SOD,PORK IN 0.45% NACL 25,000 UNIT in 0.45% NACL 1 250ML.BAG IV SCH (12:21)
--- NOTE | 2021-01-09 14:21 | P.PN ---
Subjective Progress Note Date: 01/09/21 Hospital course: Patient is a 55-year-old male with a past medical history of diabetes mellitus, coronary artery disease with history of myocardial infarction and stent who presented with complaints of shortness of breath. He was transferred here from [place] and admitted under our services with consultation to pulmonology for acute hypoxic respiratory failure secondary to Covid 19 pneumonia, ARDS, and RLE DVT. Physical examination: Patient remains on heparin infusion for treatment of DVT. He remains on AIRVO with 50% oxygen and FiO2 of FiO2 72% he has consistently been maintaining SpO2 at 90%. Patient reports that he had a rough night and had significant shortness of breath with one attempt to use the restroom. Patient encouraged to use urinal or bedside commode and limit exertion. He is currently resting in bed and reports shortness of breath controlled at rest. He denies having any headache, lightheadedness, dizziness, chest pain, palpitations, nausea, or vomiting. Morning labs revealed leukocytosis with WBC count of 11.4 and mild hyponatremia with sodium of 134 and persistent prerenal azotemia with BUN of 33. We will place patient on gentle hydration with 0.9% normal saline at 75 mL's p er hour overnight and monitor for improvement in these levels. Patient reports decreased appetite and decreased oral intake. General: Ill-appearing, mild distress, appears at stated age Derm: warm, dry Head: atraumatic, normocephalic, symmetric Eyes: EOMI, no lid lag, anicteric sclera Mouth: no lip lesion, mucus membranes moist Cardiovascular: S1S2 reg, no murmur, positive posterior tibial pulse bilateral, Lungs: Diminished crackles at bases. Positive conversational dyspnea 4-5 words. No accessory muscle usage. Abdominal: soft, nontender to palpation, no guarding, no appreciable organomegaly Ext: no gross muscle atrophy, no edema, no contractures Neuro: CN II-XI grossly intact, no focal neuro deficits Psych: Alert, oriented, appropriate affect Assessment and plan of care: Acute hypoxic respiratory failure secondary to COVID-19 pneumonia COVID-19 pneumonia Right lower extremity DVT ARDS -Solumedrol day 8 -Baricitinib day 8 of 14 -Pulmonary following, appreciate further recommendations. -Continuation of Zinc, vitamin C, vitamin D -Follow inflammatory markers -Continuation of IV heparin for treatment of DVT -Hematology following, appreciate further recommendations -Anti-cardiolipin antibodies and antiphospholipid antibodies negative, beta 2 microglobulin normal findings at 1.40. -Inflammatory markers improving D-dimer 9.52, LDH 981, and CRP of 0.6. -Vascualr surgery following, further recommendations appreciated -Close follow-up with vascular surgery in [place] -Encourage prone positioning Diabetes mellitus type II -Jardiance and metformin on hold -Glycemic protocol with NovoLog sliding scale -Levemir -Follow blood sugars Hypertension, controlled -Monitor vital signs and Continue with Bystolic Chronic medical conditions include: Coronary artery disease History of Myocardial infarction Dyslipidemia CODE STATUS: Full code DVT prophylaxis: Heparin gtt Discussed with: Patient and RN Anticipated discharge: Clinical course to determine Anticipated discharge place: home, possibly with homecare A total of 45 minutes was spent on the care of this complex patient more than 50% of the time was spent in counseling and care coordination. Objective - Vital Signs Vital signs: Vital Signs Temp 97.8 F 01/09/21 12:00 Pulse 53 L 01/09/21 12:00 Resp 19 01/09/21 12:00 BP 90/51 01/09/21 12:00 Pulse Ox 92 L 01/09/21 12:00 Intake & Output 01/08/21 01/09/21 01/09/21 18:59 06:59 18:59 Intake Total 120 372.357 Output Total 600 Balance 120 372.357 -600 Weight 83 kg Intake: Intake, IV Titration 222.357 Amount Heparin Sod,Pork in 0.45% 222.357 NaCl 25,000 unit In 0.45 % NaCl 1 250ml.bag @ 18 UNITS/KG/HR 14.76 mls/hr IV .[id number] [facility] Rx#: [id number] Oral 120 150 Output: Urine 600 Other: Voiding Method Bedpan Urinal Urinal # Voids 1 1 # Bowel Movements 1 - Labs CBC & Chem 7: 01/09/21 09:04 01/09/21 09:04 Labs: Abnormal Lab Results - Last 24 Hours (Table) 01/08/21 01/08/21 01/09/21 Range/Units 16:31 20:14 06:27 WBC (3.8-10.6) k/uL Neutrophils # (1.3-7.7) k/uL Lymphocytes # (1.0-4.8) k/uL APTT (22.0-30.0) sec Sodium (137-145) mmol/L BUN (9-20) mg/dL Glucose (74-99) mg/dL POC Glucose (mg/dL) 245 H 164 H 176 H (75-99) mg/dL Total Protein (6.3-8.2) g/dL Albumin (3.5-5.0) g/dL 01/09/21 01/09/21 01/09/21 Range/Units 09:04 09:04 09:04 WBC 11.4 H (3.8-10.6) k/uL Neutrophils # 10.8 H (1.3-7.7) k/uL Lymphocytes # 0.2 L (1.0-4.8) k/uL APTT 50.9 H (22.0-30.0) sec Sodium 134 L (137-145) mmol/L BUN 33 H (9-20) mg/dL Glucose 218 H (74-99) mg/dL POC Glucose (mg/dL) (75-99) mg/dL Total Protein 6.0 L (6.3-8.2) g/dL Albumin 3.1 L (3.5-5.0) g/dL 01/09/21 Range/Units 12:02 WBC (3.8-10.6) k/uL Neutrophils # (1.3-7.7) k/uL Lymphocytes # (1.0-4.8) k/uL APTT (22.0-30.0) sec Sodium (137-145) mmol/L BUN (9-20) mg/dL Glucose (74-99) mg/dL POC Glucose (mg/dL) 195 H (75-99) mg/dL Total Protein (6.3-8.2) g/dL Albumin (3.5-5.0) g/dL
[2021-01-09] MEDS: SODIUM CHLORIDE 0.9% 1,000 ML IV SCH (17:16)
[2021-01-09 17:28] LABS: Glucose,Whole Blood 176 mg/dL (75-99)
[2021-01-09 19:43] LABS: Glucose,Whole Blood 265 mg/dL (75-99)
[2021-01-10 06:12] LABS: Glucose,Whole Blood 162 mg/dL (75-99)
[2021-01-10] MEDS: methylPREDNISolone SOD SUCCI 125 MG/2 ML VIAL IV SCH (06:32)
[2021-01-10] MEDS: PANTOPRAZOLE 40 MG TABLET PO SCH ×2 (06:33→16:32)
[2021-01-10] MEDS: INSULIN DETEMIR (LEVEMIR) 100 UNIT/ML SYR SQ SCH (06:33)
[2021-01-10] MEDS: SODIUM CHLORIDE 0.9% 1,000 ML IV SCH ×2 (06:33→16:34)
[2021-01-10] MEDS: INSULIN ASPART (NovoLOG) 100 UNIT/ML VIAL SQ SCH ×4 (06:33→20:34)
[2021-01-10] MEDS: HEPARIN SOD,PORK IN 0.45% NACL 25,000 UNIT in 0.45% NACL 1 250ML.BAG IV SCH ×2 (07:04→23:10)
[2021-01-10 07:48] LABS: Basophils % (A) 0 %; Eosinophils # (A) 0.1 k/uL (0-0.7); Eosinophils % (A) 1 %; HCT 39.6 % (39.0-53.0); HGB 13.5 gm/dL (13.0-17.5); Lymphocytes # (A) 0.2 k/uL (1.0-4.8); Lymphocytes % (A) 2 %; MCH 28.9 pg (25.0-35.0); MCHC 34.2 g/dL (31.0-37.0); MCV 84.4 fL (80.0-100.0); Monocytes # (A) 0.3 k/uL (0-1.0); Monocytes % (A) 3 %; Neutrophils # (A) 10.6 k/uL (1.3-7.7); Neutrophils % (A) 94 %; Platelet Count 200 k/uL (150-450); RBC 4.69 m/uL (4.30-5.90); RDW 13.3 % (11.5-15.5); WBC 11.3 k/uL (3.8-10.6)
[2021-01-10 08:10] LABS: ALT 55 U/L (4-49); AST 30 U/L (17-59); African American GFR (CKD) >90 (>60 ml/min/1.73 sqM); Albumin 2.9 g/dL (3.5-5.0); Alkaline Phosphatase 49 U/L (38-126); Anion Gap 6 mmol/L; Blood Urea Nitrogen 29 mg/dL (9-20); Calcium 8.7 mg/dL (8.4-10.2); Carbon Dioxide 24 mmol/L (22-30); Chloride 103 mmol/L (98-107); Glucose 166 mg/dL (74-99); Non-African American GFR(CKD) >90 (>60 ml/min/1.73 sqM); Potassium 4.6 mmol/L (3.5-5.1); Sodium 133 mmol/L (137-145); Total Bilirubin 1.1 mg/dL (0.2-1.3); Total Protein 5.7 g/dL (6.3-8.2)
[2021-01-10] MEDS: ALBUTEROL HFA INHALER INHALATION PRN ×4 (08:14→20:09)
[2021-01-10] MEDS: EZETIMIBE 10 MG TAB PO SCH (08:21)
[2021-01-10] MEDS: LOSARTAN 25 MG TAB PO SCH (08:21)
[2021-01-10] MEDS: TICAGRELOR 90 MG TAB PO SCH ×2 (08:22→20:34)
[2021-01-10] MEDS: ZINC SULFATE 220 MG CAP PO SCH (08:22)
[2021-01-10] MEDS: ASCORBIC ACID 500 MG TAB PO SCH (08:22)
[2021-01-10] MEDS: CHOLECALCIFEROL 25 MCG (1000 IU) TABLET PO SCH (08:22)
[2021-01-10] MEDS: NEBIVOLOL 5 MG TAB PO SCH (08:22)
[2021-01-10 08:38] LABS: C Reactive Protein <0.5 mg/dL (<1.0); LDH 1100 U/L (313-618)
--- NOTE | 2021-01-10 11:43 | P.PN ---
Subjective Progress Note Date: 01/10/21 Hospital course: Patient is a 55-year-old male with a past medical history of diabetes mellitus, coronary artery disease with history of myocardial infarction and stent who presented with complaints of shortness of breath. He was transferred here from [place] and admitted under our services with consultation to pulmonology for acute hypoxic respiratory failure secondary to Covid 19 pneumonia, ARDS, and RLE DVT. Physical examination: Patient remains on heparin infusion for treatment of DVT. He remains on AIRVO with 50% oxygen and FiO2 of FiO2 72% he has consistently been maintaining SpO2 at 91%. Patient reports that he had a decent night last night and although he continues with shortness of breath, weakness, and significant dyspnea with exertion he reports feeling just a little stronger. He is currently resting in bed and reports shortness of breath controlled at rest. He denies having any headache, lightheadedness, dizziness, chest pain, palpitations, nausea, or vomiting. Morning labs revealed Leukocytosis with WBCs of 11.3, Hyponatremia with sodium of 133 and BUN improving down to 29 this morning, inflammatory markers continue to improve with d-dimer 5.25, LDH of 1100 and CRP less than 0.5. Encouraging oral intake and we will continue 0.9 infusion for another 24 hours for continued hydration. General: Ill-appearing, mild distress, appears at stated age Derm: warm, dry Head: atraumatic, normocephalic, symmetric Eyes: EOMI, no lid lag, anicteric sclera Mouth: no lip lesion, mucus membranes moist Cardiovascular: S1S2 reg, no murmur, positive posterior tibial pulse bilateral, Lungs: Diminished crackles at bases. Positive conversational dyspnea 4-5 words. No accessory muscle usage. Abdominal: soft, nontender to palpation, no guarding, no appreciable organomegaly Ext: no gross muscle atrophy, no edema, no contractures Neuro: CN II-XI grossly intact, no focal neuro deficits Psych: Alert, oriented, appropriate affect Assessment and plan of care: Acute hypoxic respiratory failure secondary to COVID-19 pneumonia COVID-19 pneumonia Right lower extremity DVT ARDS -Solumedrol day 9 -Baricitinib day 9 of 14 -Pulmonary following, appreciate further recommendations. -Continuation of Zinc, vitamin C, vitamin D -Follow inflammatory markers -Continuation of IV heparin for treatment of DVT -Hematology following, appreciate further recommendations -Anti-cardiolipin antibodies and antiphospholipid antibodies negative, beta 2 microglobulin normal findings at 1.40. -Inflammatory markers continue to improve with d-dimer 5.25, LDH of 1100 and CRP less than 0.5. -Vascualr surgery following, further recommendations appreciated -Close follow-up with vascular surgery in [place] Prerenal azotemia Hyponatremia Dehydration -Patient very dry with decreased oral intake headache. -Improving with gentle hydration. -Encourage oral intake, we will continue with gentle hydration for another 24 hours. Diabetes mellitus type II -Jardiance and metformin on hold -Glycemic protocol with NovoLog sliding scale -Levemir -Follow blood glucose levels -Hemoglobin A1c 7.1% Hypertension, controlled -Monitor vital signs and Continue with Bystolic Chronic medical conditions include: Coronary artery disease History of Myocardial infarction Dyslipidemia CODE STATUS: Full code DVT prophylaxis: Heparin gtt Discussed with: Patient and RN Anticipated discharge: Clinical course to determine Anticipated discharge place: home, possibly with homecare A total of 45 minutes was spent on the care of this complex patient more than 50% of the time was spent in counseling and care coordination. Objective - Vital Signs Vital signs: Vital Signs Temp 97.8 F 01/10/21 03:43 Pulse 58 L 01/10/21 03:43 Resp 20 01/10/21 03:43 BP 106/62 01/10/21 03:43 Pulse Ox 91 L 01/10/21 04:15 Intake & Output 01/09/21 01/10/21 01/10/21 18:59 06:59 18:59 Intake Total 600 400 Output Total 975 750 Balance -375 -350 Weight 82.5 kg Intake: Intake, IV Titration 250 Amount Heparin Sod,Pork in 0.45% 250 NaCl 25,000 unit In 0.45 % NaCl 1 250ml.bag @ 18 UNITS/KG/HR 14.76 mls/hr IV .[id number] [facility] Rx#: [id number] Oral 600 150 Output: Urine 975 750 Other: Voiding Method Urinal Urinal # Bowel Movements 1 - Labs CBC & Chem 7: 01/10/21 07:26 01/10/21 07:26 Labs: Abnormal Lab Results - Last 24 Hours (Table) 01/08/21 01/09/21 01/09/21 Range/Units 07:51 09:04 09:04 WBC 11.4 H (3.8-10.6) k/uL Neutrophils # 10.8 H (1.3-7.7) k/uL Lymphocytes # 0.2 L (1.0-4.8) k/uL APTT (22.0-30.0) sec Sodium 134 L (137-145) mmol/L BUN 33 H (9-20) mg/dL Glucose 218 H (74-99) mg/dL POC Glucose (mg/dL) (75-99) mg/dL Ferritin 1109.0 H (22.0-322.0) ng/mL Total Protein 6.0 L (6.3-8.2) g/dL Albumin 3.1 L (3.5-5.0) g/dL 01/09/21 01/09/21 01/09/21 Range/Units 09:04 12:02 17:26 WBC (3.8-10.6) k/uL Neutrophils # (1.3-7.7) k/uL Lymphocytes # (1.0-4.8) k/uL APTT 50.9 H (22.0-30.0) sec Sodium (137-145) mmol/L BUN (9-20) mg/dL Glucose (74-99) mg/dL POC Glucose (mg/dL) 195 H 176 H (75-99) mg/dL Ferritin (22.0-322.0) ng/mL Total Protein (6.3-8.2) g/dL Albumin (3.5-5.0) g/dL 01/09/21 01/10/21 01/10/21 Range/Units 19:41 06:09 07:26 WBC 11.3 H (3.8-10.6) k/uL Neutrophils # 10.6 H (1.3-7.7) k/uL Lymphocytes # 0.2 L (1.0-4.8) k/uL APTT (22.0-30.0) sec Sodium (137-145) mmol/L BUN (9-20) mg/dL Glucose (74-99) mg/dL POC Glucose (mg/dL) 265 H 162 H (75-99) mg/dL Ferritin (22.0-322.0) ng/mL Total Protein (6.3-8.2) g/dL Albumin (3.5-5.0) g/dL
--- NOTE | 2021-01-10 11:47 | P.PN ---
Subjective Progress Note Date: 01/10/21 56-year-old male, seen in the emergency room, on December 31. The patient has a history of diabetes and hypertension. He Presents to the emergency room complaining of shortness of breath. The patient was apparently transferred from [facility] and [place]. There he was apparently diagnosed with COVID pneumonia. The patient was diagnosed with bilateral pneumonia secondary to coronavirus. The patient was transferred down on BiPAP therapy. He was quite anxious. More recently, he was transitioned over to high flow nasal O2. He denied any chest pain or chest discomfort. There is no fever or chills. The patient has been having symptoms for at least 10 days and may be a bit longer. The patient has not received a coronavirus vaccine. Currently, the patient is on AIRVO, at 40 L/m and 55%. His saturations are in the low 90s. White count 2.43, hemoglobin 13.8, hematocrit 39.8, and platelet count 137,000. PT 10.4, INR 1, fibrinogen 524, PTT 25.1, and d-dimer 0.83. Sodium was 135, potassium 4, chloride 99, CO2 24, anion gap 12, BUN 28, creatinine 1. The patient's CK was 428. LDH was 647, and C-reactive protein was 7.9. Chest x-ray showed diffuse bilateral infiltrates. Currently, the patient's on albuterol inhaler, Decadron, Pradaxa, and his usual cardiac medications. Progress note dated 01/01/2021. This is a 56-year-old male, again seen in room 369. The patient has a history of diabetes and hypertension, and presented to the emergency department with sh ortness of breath. He was transferred down from [facility] in [place]. The patient apparently has been tested a couple times for coronavirus, and tested negative or inconclusive. He was retested here. The patient is being treated as if he has coronavirus pneumonia. Currently, he is on AIRVO. He was on 55 L/m and an FiO2 of 80%. The patient will be sent down on BiPAP for a CT angiogram. There is no new laboratory data today. The patient's major issue is shortness of breath and anxiety. The patient is seen today 01/02/2021 and follow-up on the selective care unit. He is currently resting fairly comfortably in bed. Still short of breath with minimal activity. Short of breath with conversation. He is currently on air bubble high flow oxygen at 55 L and 80% FiO2. He did test positive for the coronavirus by PCR here. White count 7.6. Hemoglobin 13.1. Lymphocytes 0.4. D-dimer 1.3. Sodium 139. Potassium 30.8. Creatinine 0.70. Glucose 187. He remains on DuoNeb inhalations, IV Solu-Medrol, vitamin supplements. Anticoagulated with Pradaxa. CT angiogram ruled out pulmonary embolism. There is bilateral multifocal and confluent groundglass opacities and organizing consolidation consistent with COVID-19 infection The patient is 01/03/2021 in follow-up on selective care unit. He is currently resting fairly comfortably in bed. Awake and alert in no acute distress. Continues with shortness of breath on exertion. He remains on air bubble at 55 L 88% FiO2 to maintain O2 saturations in the high 80s and low 90s. He is afebrile. Bradycardic. Blood glucose 245. He remains on DuoNeb inhalations, IV Solu-Medrol, vitamin supplements. Continued on Tessalon Perles. Anticoagulated with Pradaxa. He was initiated on Baricitinib yesterday. 2020, the patient clinically is feeling better. However, his oxidation is unchanged. He is still requiring high flow oxygen at 55 L with an FiO2 of 90%. Unable to fully extend his lungs with deep breathing because of persistent cough which is a dry cough. He is afebrile. His hemodynamically stable. D-dimer came up today and the liver from today was 34. Note that the patient takes Pradaxa on outpatient basis for long-term anticoagulation regarding previous history of vascular intervention is done in the lower extremities which was complicated by clotting. I believe this was a arterial intervention. The patient is also known to have COPD and previous myocardial infarction. In any rate, the patient has been on a combination of brillinta/pradaxa on outpatient basis. For now he is also on steroids and he is taking IV Solu-Medrol and he was started on Baricitinib . He is also on multivitamins. His taken Tessalon Perles for cough and. Blood sugar today's at 236 and the patient is diabetic. LDH level is 1165 and a CRP level is down to 1.9. No other issues otherwise for now. He is hemodynamically stable. 01/05/2021, seeing the patient for a follow-up. He remains essentially unchanged compared to yesterday. Her oxygenation has remained unchanged and he remains on high flow oxygen 55 L with an FiO2 of 90%. He is still having some dry cough. D-dimer was quite elevated and based on that we did further investigation. Doppler of the lower extremity was done and the findings were consistent with right popliteal DVT and there was a long segment of occlusion along with acute DVT of the right groin extending below the level of the right knee. No left-sided acute DVT was noted. Based on that, vascular surgery was consulted and the patient underwent a CT angiogram of the abdomen and pelvis to better visualize the arteries and veins extending to the lower extremities. The CT angiogram was completed and there was decreased enhancement and suboptimal contrast in the right iliac stent compared to the left. It was not clear if this was related to a thrombus or due to slow flow versus DVT in the involved vessel. In any rate, no further intervention was recommended and the patient was asked to continue with IV heparin. Obviously there is a concern for failure of his oral anticoagulants and vascular surgery is involved hematology on the case. Meanwhile, the patient is on steroids. He is currently on Solu-Medrol 60 mg every 6 hours and he is also on Baricitinib . His blood work from today shows a therapeutic PTT of 92. D-dimer was above 34 from yesterday. Electrodes were normal. LDH from yesterday was 1165 with a CRP level of 1.9. Hemodynamically stable. No pleurisy. No hemoptysis. Tolerating his diet. Using incentive spirometer. 01/06/2021, seeing this patient for a follow-up. He is still on high flow oxygen at 55 L with an FiO2 of 86%. While moving around and trying to take a bath, the pulse ox dropped down to the low 80s, currently his pulse ox is around 86-87%. He feels essentially the same as yesterday and probably slightly bet ter. He remains on steroids. The patient is currently on IV Solu Medrol 60 mg every 6 hours and he is also on Baricitinib. . He is afebrile. Inflammatory markers show an LDH level of 1118 which is essentially comparable to few days ago and a CRP level is at 6.1. The rest of the blood work shows a d-dimer of 18.7 which is obviously dropping. BUN is at 39 with a creatinine of 0.8. White cell count is at 7.2. The hypercoagulable workup included the anti-cardiolipin antibodies which sock turner to be negative. As mentioned earlier, the patient had a right popliteal DVT and there was a long segment of occlusion along the right groin extending to the knee. No evidence of any DVT on the left. Vascular surgery was consulted. CAT scan of the abdomen and pelvis was reviewed and showed the arteries and veins extending to the lower extremity. There was decreased enhancement and suboptimal contrast in the right iliac stent compared to left. He was not absolutely. This was a thrombus or it was a low flow state versus DVT. In any rate, we consulted hematology oncology and we kept the p atient on anticoagulation. We took him off the Pradaxa and patient is currently on IV heparin. Awaiting further recommendations from hematology oncology. As mentioned earlier, the anti-cardiolipin antibodies came back negative. As mentioned earlier, the patient has been on long-term antiplatelet agent with Brilinta, given to him by cardiology. 01/07/2021, the patient is feeling better. He is on a high flow system with a flow of 50 L on an FiO2 of 70%. There is improved compared to yesterday. He is sitting up on a chair. He remains on IV heparin regarding a DVT of the lower extremity. He remains on IV Solu-Medrol and Baricitinib. In terms of his inflammatory markers, the patient has an LDH level of 1118 of LDH and a CRP level of 0.8. His d-dimer was improving. No other new complaints otherwise for now. As mentioned earlier, the anti-cardiolipin antibodies and antiphospholipid antibodies came back negative. No other complaints otherwise for now. Blood work was reviewed. White cell cause of 8.3 with a hemoglobin of 13. PTT is therapeutic at 52. Electrolytes are all within normal limits. Tolerating diet. Using incentive spirometer. No other significant events. Pulse ox is currently 92-93% on above-mentioned high flow setting. 01/08/2021, the patient remains on high flow oxygen with 50 L with an FiO2 of 70% and this incision same setting as yesterday. He remains on IV Solu-Medrol and Baricitinib. No new complaints. Sitting up on a recliner. He remains on IV heparin. In terms of his blood work, his d-dimer is at 9.5 which is lower, rest of the blood work shows normal electrolytes, his LDH level is declining down to 981 and a CRP level is down to 0.6. No bleeding complications. No oropharyngeal candidiasis. He has a good appetite. No nausea or emesis. No other complaints otherwise for now. We'll try to gradually wean down his FiO2. Hemoglobin stable at 13.3 and a white cell count is at 9.6. 01/09/2021, the patient is being seen for a follow-up. The patient is a case of COVID-19 related pneumonia with respiratory failure. He remains on high flow oxygen at 15 L with an FiO2 of 70%. The patient remains on IV Solu-Medrol. The patient is also on Baricitinib 4 mg once a day. We were thinking of weaning the FiO2 slightly yesterday. Nevertheless, yesterday evening, the patient had a cough and spelled and he had an oxygen desaturation. As such, he was kept on the same oxygen flow. His current pulse ox is 91%. He still desaturates with limited amount of activity as he recovers with mobility and movement. As such, his condition is essentially unchanged. The white cell count is 11.4. Platelet counts are 209. PTT is therapeutic at 50.9. BUN is 33 with a creatinine of 0.9. LFTs are within normal limits. His taken his oral intake without any major difficulties. No nausea. No vomiting. No diarrhea. No chest pain. No altered mentation. He alternates between his bed and his recliner. 01/10/2021, the patient is stable. He remains on high flow oxygen with 50 L with an FiO2 of 70%. White cell count is 11.3. D-dimer level is at 5.25. His LDH level is 1100 and the CRP level is less than 0.5. LDH level remains quite elevated. He is feeling well. His pulse ox is above 90% for now. His PTT is therapeutic while being on IV heparin. No other significant events overnight. He remains on IV Solu-Medrol at a dose of 60 mg every 6 hours and he is also completing course of Baricitinib 4 mg by mouth daily for a total of 2 weeks. No fever. No chills. Tolerating his diet. No other significant events overnight. He is quite comfortable at this point in time. Objective - Vital Signs Vital signs: Vital Signs Temp 97.8 F 01/10/21 08:00 Pulse 53 L 01/10/21 08:00 Resp 20 01/10/21 08:00 BP 91/56 01/10/21 08:00 Pulse Ox 90 L 01/10/21 08:15 Intake & Output 01/09/21 01/10/21 01/10/21 18:59 06:59 18:59 Intake Total 600 400 Output Total 975 750 325 Balance -375 -350 -325 Weight 82.5 kg Intake: Intake, IV Titration 250 Amount Heparin Sod,Pork in 0.45% 250 NaCl 25,000 unit In 0.45 % NaCl 1 250ml.bag @ 18 UNITS/KG/HR 14.76 mls/hr IV .[id number] [facility] Rx#: [id number] Oral 600 150 Output: Urine 975 750 325 Other: Voiding Method Urinal Urinal Urinal # Bowel Movements 1 - Exam GENERAL EXAM: Alert, pleasant 55-year-old, on AirVo high flow oxygen at 50 L and 70% FiO2, fairly comfortable in no apparent distress. Breathing is slightly labored on today's evaluation HEAD: Normocephalic. EYES: Normal reaction of pupils, equal size. NOSE: Clear with pink turbinates. THROAT: No erythema or exudates. NECK: No masses, no JVD. CHEST: No chest wall deformity. LUNGS: Equal air entry with coarse crackles in the posterior bases CVS: S1 and S2 normal with no audible murmur, regular rhythm. ABDOMEN: No hepatosplenomegaly, normal bowel sounds, no guarding or rigidity. SPINE: No scoliosis or deformity SKIN: No rashes CENTRAL NERVOUS SYSTEM: No focal deficits, tone is normal in all 4 extremities. EXTREMITIES: There is no peripheral edema. No clubbing, no cyanosis. Peripheral pulses are intact. - Labs CBC & Chem 7: 01/10/21 07:26 01/10/21 07:26 Labs: Abnormal Lab Results - Last 24 Hours (Table) 01/08/21 01/09/21 01/09/21 Range/Units 07:51 12:02 17:26 WBC (3.8-10.6) k/uL Neutrophils # (1.3-7.7) k/uL Lymphocytes # (1.0-4.8) k/uL APTT (22.0-30.0) sec D-Dimer (<0.60) mg/L FEU Sodium (137-145) mmol/L BUN (9-20) mg/dL Glucose (74-99) mg/dL POC Glucose (mg/dL) 195 H 176 H (75-99) mg/dL Ferritin 1109.0 H (22.0-322.0) ng/mL ALT (4-49) U/L Lactate Dehydrogenase (313-618) U/L Total Protein (6.3-8.2) g/dL Albumin (3.5-5.0) g/dL 01/09/21 01/10/21 01/10/21 Range/Units 19:41 06:09 07:26 WBC (3.8-10.6) k/uL Neutrophils # (1.3-7.7) k/uL Lymphocytes # (1.0-4.8) k/uL APTT 47.0 H (22.0-30.0) sec D-Dimer 5.25 H (<0.60) mg/L FEU Sodium (137-145) mmol/L BUN (9-20) mg/dL Glucose (74-99) mg/dL POC Glucose (mg/dL) 265 H 162 H (75-99) mg/dL Ferritin (22.0-322.0) ng/mL ALT (4-49) U/L Lactate Dehydrogenase (313-618) U/L Total Protein (6.3-8.2) g/dL Albumin (3.5-5.0) g/dL 01/10/21 01/10/21 01/10/21 Range/Units 07:26 07:26 07:26 WBC 11.3 H (3.8-10.6) k/uL Neutrophils # 10.6 H (1.3-7.7) k/uL Lymphocytes # 0.2 L (1.0-4.8) k/uL APTT (22.0-30.0) sec D-Dimer (<0.60) mg/L FEU Sodium 133 L (137-145) mmol/L BUN 29 H (9-20) mg/dL Glucose 166 H (74-99) mg/dL POC Glucose (mg/dL) (75-99) mg/dL Ferritin (22.0-322.0) ng/mL ALT 55 H (4-49) U/L Lactate Dehydrogenase 1100 H (313-618) U/L Total Protein 5.7 L (6.3-8.2) g/dL Albumin 2.9 L (3.5-5.0) g/dL Assessment and Plan Plan: 1 Acute hypoxemic respiratory failure secondary to coronavirus pneumonia. Initiated on Baricitinib 01/02/2021. Consistent with diffuse bilateral pulmonary infiltrates and the patient is currently on high flow oxygen at 50 L with an FiO2 of 70%. D-dimer is elevated. LDH and CRP are both elevated. . He remains on a combination of IV Solu-Medrol on Baricitinib. He remains on IV heparin. I will say there is essentially no change compared to yesterday. The patient's condition is stable and he had no major issues overnight. I'll keep on the same high flow settings with 50 L and an FiO2 of 70% 2 History of diabetes mellitus. 3 History of hypertension. 4 History of coronary artery disease. 5 History of myocardial infarction. 6 History of hyperlipidemia. 7 DVT involving the right lower extremity, failed anticoagulation with pradaxa, please refer to the CAT scan of the abdomen and pelvis and the Doppler of the lower extremity. D-dimer is declining and the patient remains on IV heparin. 8 previous history of bilateral iliac vein/femoral vein stents. Plan: No change in his setting and he will be kept on 50 L an FiO2 of 70% Continue anticoagulation with IV heparin, The PTT is therapeutic Continued on Baricitinib, Solu-Medrol at a dose of 60 mg IV every 6 hours. Continue bronchodilators, vitamin supplements incentive spirometer Prone while in bed Prognosis is guarded LDH level is still elevated. D-dimer is elevated and the patient is on IV heparin. Condition is stable. His nonsteroidals since 1 and the patient will be switched to Decadron 6 mg IV 24 hours and IV Solu Medrol was discontinued.
[2021-01-10] MEDS: dexAMETHasone 2 MG TAB PO SCH (11:54)
[2021-01-10 11:55] LABS: Glucose,Whole Blood 169 mg/dL (75-99)
[2021-01-10] MEDS: BARICITINIB 2 MG TABLET PO SCH (11:55)
[2021-01-10 16:31] LABS: Glucose,Whole Blood 176 mg/dL (75-99)
[2021-01-10 20:30] LABS: Glucose,Whole Blood 191 mg/dL (75-99)
[2021-01-11] MEDS: INSULIN ASPART (NovoLOG) 100 UNIT/ML VIAL SQ SCH ×4 (05:53→22:21)
[2021-01-11 05:54] LABS: Glucose,Whole Blood 79 mg/dL (75-99)
[2021-01-11] MEDS: PANTOPRAZOLE 40 MG TABLET PO SCH ×2 (06:33→17:10)
[2021-01-11] MEDS: SODIUM CHLORIDE 0.9% 1,000 ML IV SCH (06:33)
[2021-01-11] MEDS ORDERED: MORPHINE SULFATE 4 MG/ML SYRINGE IV PRN (07:23)
[2021-01-11 08:06] LABS: Basophils % (A) 0 %; Eosinophils # (A) 0.1 k/uL (0-0.7); Eosinophils % (A) 0 %; HCT 40.9 % (39.0-53.0); HGB 13.6 gm/dL (13.0-17.5); Lymphocytes # (A) 0.4 k/uL (1.0-4.8); Lymphocytes % (A) 3 %; MCH 28.7 pg (25.0-35.0); MCHC 33.3 g/dL (31.0-37.0); Mean Platelet Volume 7.1; Monocytes # (A) 0.4 k/uL (0-1.0); Monocytes % (A) 3 %; Neutrophils # (A) 12.2 k/uL (1.3-7.7); Neutrophils % (A) 93 %; Platelet Count 187 k/uL (150-450); RBC 4.76 m/uL (4.30-5.90); RDW 13.1 % (11.5-15.5); WBC 13.1 k/uL (3.8-10.6)
[2021-01-11] MEDS: INSULIN DETEMIR (LEVEMIR) 100 UNIT/ML SYR SQ SCH (08:06)
[2021-01-11] MEDS: ALBUTEROL HFA INHALER INHALATION PRN ×4 (08:16→21:07)
[2021-01-11] MEDS: EZETIMIBE 10 MG TAB PO SCH (08:18)
[2021-01-11] MEDS: dexAMETHasone 2 MG TAB PO SCH (08:18)
[2021-01-11] MEDS: ZINC SULFATE 220 MG CAP PO SCH (08:18)
[2021-01-11] MEDS: LOSARTAN 25 MG TAB PO SCH (08:18)
[2021-01-11] MEDS: NEBIVOLOL 5 MG TAB PO SCH (08:18)
[2021-01-11] MEDS: CHOLECALCIFEROL 25 MCG (1000 IU) TABLET PO SCH (08:18)
[2021-01-11] MEDS: TICAGRELOR 90 MG TAB PO SCH ×2 (08:18→22:21)
[2021-01-11] MEDS: ASCORBIC ACID 500 MG TAB PO SCH (08:18)
[2021-01-11] MEDS: HYDROcodone/APAP 5-325MG 1 EACH TAB PO PRN ×3 (08:19→17:11)
[2021-01-11 08:42] LABS: ALT 57 U/L (4-49); AST 32 U/L (17-59); African American GFR (CKD) >90 (>60 ml/min/1.73 sqM); Albumin 2.9 g/dL (3.5-5.0); Alkaline Phosphatase 54 U/L (38-126); Anion Gap 3 mmol/L; Blood Urea Nitrogen 27 mg/dL (9-20); Calcium 8.5 mg/dL (8.4-10.2); Carbon Dioxide 27 mmol/L (22-30); Chloride 104 mmol/L (98-107); Glucose 80 mg/dL (74-99); LDH 985 U/L (313-618); Non-African American GFR(CKD) >90 (>60 ml/min/1.73 sqM); Potassium 4.1 mmol/L (3.5-5.1); Sodium 134 mmol/L (137-145); Total Protein 5.7 g/dL (6.3-8.2)
[2021-01-11 11:52] LABS: Glucose,Whole Blood 133 mg/dL (75-99)
--- NOTE | 2021-01-11 12:18 | P.PN ---
<Vipin Gomez - Last Filed: 01/11/21 12:13> Subjective Progress Note Date: 01/11/21 Hospital course: Patient is a 55-year-old male with a past medical history of diabetes mellitus, coronary artery disease with history of myocardial infarction and stent who presented with complaints of shortness of breath. He was transferred here from [place] and admitted under our services with consultation to pulmonology for acute hypoxic respiratory failure secondary to Covid 19 pneumonia, ARDS, and RLE DVT. Physical examination: Patient remains on heparin infusion for treatment of DVT. He remains on AIRVO with 50% oxygen and FiO2 of 60% maintaining SpO2 at 93%. Patient showing improvement. He reports feeling even stronger than yesterday. He is currently resting in bed and appears to have a more positive affect. He denies any heada cyril, lightheadedness, dizziness, chest pain, palpitations, nausea, or vomiting. Morning labs reviewed. Inflammatory markers continuing to improve with LDH 985 and CRP of 1.0. Patient reports slight improvement in appetite, we will discontinue fluids for now and continue to monitor closely. General: Ill-appearing, mild distress, appears at stated age Derm: warm, dry Head: atraumatic, normocephalic, symmetric Eyes: EOMI, no lid lag, anicteric sclera Mouth: no lip lesion, mucus membranes moist Cardiovascular: S1S2 reg, no murmur, positive posterior tibial pulse bilateral, Lungs: Diminished crackles at bases. Positive conversational dyspnea 4-5 words. No accessory muscle usage. Abdominal: soft, nontender to palpation, no guarding, no appreciable organomegaly Ext: no gross muscle atrophy, no edema, no contractures Neuro: CN II-XI grossly intact, no focal neuro deficits Psych: Alert, oriented, appropriate affect Assessment and plan of care: Acute hypoxic respiratory failure secondary to COVID-19 pneumonia COVID-19 pneumonia Right lower extremity DVT ARDS -Solumedrol day 10 -Baricitinib day 10 of 14 -Pulmonary following, appreciate further recommendations. -Continuation of Zinc, vitamin C, vitamin D -Follow inflammatory markers, Inflammatory markers continuing to improve with LDH 985 and CRP of 1.0. -Continuation of IV heparin for treatment of DVT -Hematology following, appreciate further recommendations -Anti-cardiolipin antibodies and antiphospholipid antibodies negative, beta 2 microglobulin normal findings at 1.40. -Vascualr surgery following, further recommendations appreciated -Close follow-up with vascular surgery in [place] Prerenal azotemia Hyponatremia Dehydration -Patient very dry with decreased oral intake headache. -Patient reports improvement in appetite, we will discontinue fluids for now and continue to monitor closely. Diabetes mellitus type II -Jardiance and metformin on hold -Glycemic protocol with NovoLog sliding scale -Levemir -Follow blood glucose levels -Hemoglobin A1c 7.1% Hypertension, controlled -Monitor vital signs and Continue with Bystolic Chronic medical conditions include: Coronary artery disease History of Myocardial infarction Dyslipidemia CODE STATUS: Full code DVT prophylaxis: Heparin gtt Discussed with: Patient and RN Anticipated discharge: Clinical course to determine Anticipated discharge place: home, possibly with homecare A total of 45 minutes was spent on the care of this complex patient more than 50% of the time was spent in counseling and care coordination. Objective - Vital Signs Vital signs: Vital Signs Temp 98.0 F 01/11/21 08:00 Pulse 64 01/11/21 08:00 Resp 19 01/11/21 08:00 BP 89/50 01/11/21 08:00 Pulse Ox 95 01/11/21 08:18 Intake & Output 01/10/21 01/11/21 01/11/21 18:59 06:59 18:59 Intake Total 720 732.02 Output Total 1075 650 Balance -355 82.02 Weight 83.5 kg Intake: Intake, IV Titration 732.02 Amount Heparin Sod,Pork in 0.45% 132.02 NaCl 25,000 unit In 0.45 % NaCl 1 250ml.bag @ 18 UNITS/KG/HR 14.76 mls/hr IV .[id number] TYREL Rx#: [id number] Sodium Chloride 0.9% 1, 600 000 ml @ 75 mls/hr IV . [id number] T[facility] Rx#:[id number] Oral 720 Output: Urine 1075 650 Other: Voiding Method Urinal Urinal Urinal # Voids 1 1 # Bowel Movements 1 - Labs CBC & Chem 7: 01/11/21 07:39 01/11/21 07:39 Labs: Abnormal Lab Results - Last 24 Hours (Table) 01/10/21 01/10/21 01/10/21 Range/Units 07:26 11:50 16:26 WBC (3.8-10.6) k/uL Neutrophils # (1.3-7.7) k/uL Lymphocytes # (1.0-4.8) k/uL APTT (22.0-30.0) sec Sodium (137-145) mmol/L BUN (9-20) mg/dL POC Glucose (mg/dL) 169 H 176 H (75-99) mg/dL Ferritin 1120.0 H (22.0-322.0) ng/mL ALT (4-49) U/L Lactate Dehydrogenase (313-618) U/L C-Reactive Protein (<1.0) mg/dL Total Protein (6.3-8.2) g/dL Albumin (3.5-5.0) g/dL 01/10/21 01/11/21 01/11/21 Range/Units 20:26 07:39 07:39 WBC 13.1 H (3.8-10.6) k/uL Neutrophils # 12.2 H (1.3-7.7) k/uL Lymphocytes # 0.4 L (1.0-4.8) k/uL APTT 49.3 H (22.0-30.0) sec Sodium (137-145) mmol/L BUN (9-20) mg/dL POC Glucose (mg/dL) 191 H (75-99) mg/dL Ferritin (22.0-322.0) ng/mL ALT (4-49) U/L Lactate Dehydrogenase (313-618) U/L C-Reactive Protein (<1.0) mg/dL Total Protein (6.3-8.2) g/dL Albumin (3.5-5.0) g/dL 01/11/21 Range/Units 07:39 WBC (3.8-10.6) k/uL Neutrophils # (1.3-7.7) k/uL Lymphocytes # (1.0-4.8) k/uL APTT (22.0-30.0) sec Sodium 134 L (137-145) mmol/L BUN 27 H (9-20) mg/dL POC Glucose (mg/dL) (75-99) mg/dL Ferritin (22.0-322.0) ng/mL ALT 57 H (4-49) U/L Lactate Dehydrogenase 985 H (313-618) U/L C-Reactive Protein 1.0 H (<1.0) mg/dL Total Protein 5.7 L (6.3-8.2) g/dL Albumin 2.9 L (3.5-5.0) g/dL <Tammy Ospina - Last Filed: 01/11/21 18:32> Objective - Vital Signs Vital signs: Vital Signs Temp 98.1 F 01/11/21 16:00 Pulse 54 L 01/11/21 16:00 Resp 20 01/11/21 16:00 BP 93/52 01/11/21 16:00 Pulse Ox 91 L 01/11/21 16:46 Intake & Output 01/10/21 01/11/21 01/11/21 18:59 06:59 18:59 Intake Total 720 732.02 600 Output Total 7715 812 6102 Balance -355 82.02 -500 Weight 83.5 kg Intake: Intake, IV Titration 732.02 600 Amount Heparin Sod,Pork in 0.45% 132.02 NaCl 25,000 unit In 0.45 % NaCl 1 250ml.bag @ 18 UNITS/KG/HR 14.76 mls/hr IV .[id number] [facility] Rx#: [id number] Sodium Chloride 0.9% 1, 600 600 000 ml @ 75 mls/hr IV . [id number] [facility] Rx#:[id number] Oral 720 Output: Urine 7921 411 1654 Other: Voiding Method Urinal Urinal Urinal # Voids 1 1 # Bowel Movements 1 - Labs CBC & Chem 7: 01/11/21 07:39 01/11/21 07:39 Labs: Abnormal Lab Results - Last 24 Hours (Table) 01/10/21 01/11/21 01/11/21 Range/Units 20:26 07:39 07:39 WBC 13.1 H (3.8-10.6) k/uL Neutrophils # 12.2 H (1.3-7.7) k/uL Lymphocytes # 0.4 L (1.0-4.8) k/uL APTT 49.3 H (22.0-30.0) sec Sodium (137-145) mmol/L BUN (9-20) mg/dL POC Glucose (mg/dL) 191 H (75-99) mg/dL Ferritin (22.0-322.0) ng/mL ALT (4-49) U/L Lactate Dehydrogenase (313-618) U/L C-Reactive Protein (<1.0) mg/dL Total Protein (6.3-8.2) g/dL Albumin (3.5-5.0) g/dL 01/11/21 01/11/21 01/11/21 Range/Units 07:39 11:50 16:39 WBC (3.8-10.6) k/uL Neutrophils # (1.3-7.7) k/uL Lymphocytes # (1.0-4.8) k/uL APTT (22.0-30.0) sec Sodium 134 L (137-145) mmol/L BUN 27 H (9-20) mg/dL POC Glucose (mg/dL) 133 H 240 H (75-99) mg/dL Ferritin 1062.0 H (22.0-322.0) ng/mL ALT 57 H (4-49) U/L Lactate Dehydrogenase 985 H (313-618) U/L C-Reactive Protein 1.0 H (<1.0) mg/dL Total Protein 5.7 L (6.3-8.2) g/dL Albumin 2.9 L (3.5-5.0) g/dL Assessment and Plan Assessment: I reviewed the documentation as provided by the CARMELO above, who is the original author of this note. I agree with the documented assessment and plan, with the following changes: None
[2021-01-11] MEDS: BARICITINIB 2 MG TABLET PO SCH (12:46)
[2021-01-11 16:44] LABS: Glucose,Whole Blood 240 mg/dL (75-99)
--- NOTE | 2021-01-11 17:07 | P.PN ---
Subjective Progress Note Date: 01/11/21 Principal diagnosis: Acute hypoxic story failure secondary to COVID-19 pneumonia Patient was reevaluated today on 01/2021, patient has been hospitalized since 12/31/2020, with acute hypoxic respiratory failure and COVID-19 pneumonia. Patient remains on high flow oxygen via airvo at 60% FiO2 and 50 L flow rate. O2 saturation is running marginal anywhere between 91-95%. Patient seems to be comfortable, not in any distress. Patient remains on the COVID-19 cocktail, remains on baricitinib, and he is fully on heparin. Patient is improving but rather slowly. Labs were basically unremarkable today including CBC and the relatively normal electrolytes normal renal profile, PTT is 49.3. LDH is 985 and C-reactive protein is 1. Both are improving Objective - Vital Signs Vital signs: Vital Signs Temp 98.0 F 01/11/21 12:00 Pulse 55 L 01/11/21 13:34 Resp 20 01/11/21 13:34 BP 91/63 01/11/21 12:00 Pulse Ox 91 L 01/11/21 16:46 Intake & Output 01/10/21 01/11/21 01/11/21 18:59 06:59 18:59 Intake Total 720 732.02 600 Output Total 4606 807 0585 Balance -355 82.02 -500 Weight 83.5 kg Intake: Intake, IV Titration 732.02 600 Amount Heparin Sod,Pork in 0.45% 132.02 NaCl 25,000 unit In 0.45 % NaCl 1 250ml.bag @ 18 UNITS/KG/HR 14.76 mls/hr IV .[id number] [facility] Rx#: [id number] Sodium Chloride 0.9% 1, 600 600 000 ml @ 75 mls/hr IV . [id number] [facility] Rx#:[id number] Oral 720 Output: Urine 7220 626 0513 Other: Voiding Method Urinal Urinal Urinal # Voids 1 1 # Bowel Movements 1 - Exam GENERAL EXAM: Revealed 55-year-old white male in no distress. HEENT: PERRLA, EOMI, nonicteric, moist mucous membranes, NECK: No masses, no JVD. CHEST: No chest wall deformity. LUNGS: Bibasilar crackles noted. CVS: Distant S1 and S2, no gallops ABDOMEN: No hepatosplenomegaly, normal bowel sounds, no guarding or rigidity. Skeletal skeletal: No deformities noted limitation range of motion SKIN: No rashes CENTRAL NERVOUS SYSTEM: Alert and oriented 3 in no gross focal deficits. EXTREMITIES: No clubbing edema or cyanosis - Labs CBC & Chem 7: 01/11/21 07:39 01/11/21 07:39 Labs: Abnormal Lab Results - Last 24 Hours (Table) 01/10/21 01/11/21 01/11/21 Range/Units 20:26 07:39 07:39 WBC 13.1 H (3.8-10.6) k/uL Neutrophils # 12.2 H (1.3-7.7) k/uL Lymphocytes # 0.4 L (1.0-4.8) k/uL APTT 49.3 H (22.0-30.0) sec Sodium (137-145) mmol/L BUN (9-20) mg/dL POC Glucose (mg/dL) 191 H (75-99) mg/dL Ferritin (22.0-322.0) ng/mL ALT (4-49) U/L Lactate Dehydrogenase (313-618) U/L C-Reactive Protein (<1.0) mg/dL Total Protein (6.3-8.2) g/dL Albumin (3.5-5.0) g/dL 01/11/21 01/11/21 01/11/21 Range/Units 07:39 11:50 16:39 WBC (3.8-10.6) k/uL Neutrophils # (1.3-7.7) k/uL Lymphocytes # (1.0-4.8) k/uL APTT (22.0-30.0) sec Sodium 134 L (137-145) mmol/L BUN 27 H (9-20) mg/dL POC Glucose (mg/dL) 133 H 240 H (75-99) mg/dL Ferritin 1062.0 H (22.0-322.0) ng/mL ALT 57 H (4-49) U/L Lactate Dehydrogenase 985 H (313-618) U/L C-Reactive Protein 1.0 H (<1.0) mg/dL Total Protein 5.7 L (6.3-8.2) g/dL Albumin 2.9 L (3.5-5.0) g/dL Assessment and Plan Assessment: Impression: Acute hypoxic respiratory failure secondary to COVID-19 pneumonia patient judy ins on high flow oxygen via airvo at 50 L flow and 60% FiO2. History of [place] History of coronary artery disease Elevated d-dimer Type 2 diabetes Dyslipidemia Right lower extremity DVT, remains on full dose heparin. History of bilateral iliac vein and femoral vein stents. Recommendation: Continue heparin Continue oxygen and titrate accordingly Continue COVID-19 cocktail. Continue bronchodilators. Continue Solu-Medrol. Continue baricitinib Continue incentive spirometry Prone position if possible Overall prognosis remains guarded Not ready for any discharge planning We will continue to follow. Time with Patient: Less than 30
[2021-01-11] MEDS: HEPARIN SOD,PORK IN 0.45% NACL 25,000 UNIT in 0.45% NACL 1 250ML.BAG IV SCH (17:20)
[2021-01-11 20:03] LABS: Glucose,Whole Blood 217 mg/dL (75-99)
[2021-01-12] MEDS: HYDROcodone/APAP 5-325MG 1 EACH TAB PO PRN ×2 (04:29→22:32)
[2021-01-12 06:10] LABS: Glucose,Whole Blood 80 mg/dL (75-99)
[2021-01-12] MEDS: INSULIN DETEMIR (LEVEMIR) 100 UNIT/ML SYR SQ SCH (06:59)
[2021-01-12] MEDS: PANTOPRAZOLE 40 MG TABLET PO SCH ×2 (07:00→16:52)
[2021-01-12] MEDS: ALBUTEROL HFA INHALER INHALATION PRN ×4 (07:19→20:06)
[2021-01-12 08:18] LABS: Basophils % (A) 0 %; Eosinophils # (A) 0.1 k/uL (0-0.7); Eosinophils % (A) 1 %; Lymphocytes # (A) 0.3 k/uL (1.0-4.8); Lymphocytes % (A) 2 %; MCH 28.6 pg (25.0-35.0); MCHC 32.5 g/dL (31.0-37.0); Monocytes # (A) 0.4 k/uL (0-1.0); Monocytes % (A) 3 %; Neutrophils # (A) 12.9 k/uL (1.3-7.7); Neutrophils % (A) 93 %; Platelet Count 190 k/uL (150-450); RBC 4.89 m/uL (4.30-5.90); RDW 13.1 % (11.5-15.5); WBC 13.8 k/uL (3.8-10.6)
[2021-01-12 08:48] LABS: ALT 50 U/L (4-49); AST 32 U/L (17-59); African American GFR (CKD) >90 (>60 ml/min/1.73 sqM); Albumin 2.9 g/dL (3.5-5.0); Alkaline Phosphatase 60 U/L (38-126); Anion Gap 6 mmol/L; Blood Urea Nitrogen 21 mg/dL (9-20); Calcium 8.6 mg/dL (8.4-10.2); Carbon Dioxide 25 mmol/L (22-30); Chloride 102 mmol/L (98-107); Glucose 151 mg/dL (74-99); Non-African American GFR(CKD) >90 (>60 ml/min/1.73 sqM); Sodium 133 mmol/L (137-145); Total Bilirubin 1.1 mg/dL (0.2-1.3); Total Protein 5.8 g/dL (6.3-8.2)
[2021-01-12] MEDS: INSULIN ASPART (NovoLOG) 100 UNIT/ML VIAL SQ SCH ×4 (09:31→22:26)
[2021-01-12] MEDS: HEPARIN SOD,PORK IN 0.45% NACL 25,000 UNIT in 0.45% NACL 1 250ML.BAG IV SCH (09:39)
[2021-01-12] MEDS: EZETIMIBE 10 MG TAB PO SCH (09:41)
[2021-01-12] MEDS: ASCORBIC ACID 500 MG TAB PO SCH (09:41)
[2021-01-12] MEDS: TICAGRELOR 90 MG TAB PO SCH ×2 (09:41→22:26)
[2021-01-12] MEDS: NEBIVOLOL 5 MG TAB PO SCH (09:41)
[2021-01-12] MEDS: LOSARTAN 25 MG TAB PO SCH (09:41)
[2021-01-12] MEDS: ZINC SULFATE 220 MG CAP PO SCH (09:41)
[2021-01-12] MEDS: CHOLECALCIFEROL 25 MCG (1000 IU) TABLET PO SCH (09:41)
[2021-01-12] MEDS: dexAMETHasone 2 MG TAB PO SCH (09:42)
--- NOTE | 2021-01-12 11:15 | P.PN ---
Subjective Progress Note Date: 01/12/21 Principal diagnosis: Covid 19, RLE DVT, extensive In f/u today pt resp status is stable/unchanged. RLE swelling is stable, cont on heparin drip, no reports of unusual bleeding. Objective - Vital Signs Vital signs: Vital Signs Temp 98.7 F 01/12/21 10:01 Pulse 68 01/12/21 10:01 Resp 22 01/12/21 10:02 BP 89/44 01/12/21 10:01 Pulse Ox 93 L 01/12/21 10:45 Intake & Output 01/11/21 01/12/21 01/12/21 18:59 06:59 18:59 Intake Total 600 430 Output Total 1100 600 675 Balance -500 -600 -245 Weight 83 kg Intake: Intake, IV Titration 600 250 Amount Heparin Sod,Pork in 0.45% 250 NaCl 25,000 unit In 0.45 % NaCl 1 250ml.bag @ 18 UNITS/KG/HR 14.76 mls/hr IV .[id number] [facility] Rx#: [id number] Sodium Chloride 0.9% 1, 600 000 ml @ 75 mls/hr IV . [id number] [facility] Rx#:[id number] Oral 180 Output: Urine 1100 600 675 Other: Voiding Method Urinal Urinal Urinal # Voids 2 - Constitutional General appearance: Present: average body habitus, no acute distress - Labs CBC & Chem 7: 01/12/21 07:58 01/12/21 07:58 Labs: Abnormal Lab Results - Last 24 Hours (Table) 01/11/21 01/11/21 01/11/21 Range/Units 07:39 11:50 16:39 WBC (3.8-10.6) k/uL Neutrophils # (1.3-7.7) k/uL Lymphocytes # (1.0-4.8) k/uL APTT (22.0-30.0) sec Sodium (137-145) mmol/L BUN (9-20) mg/dL Glucose (74-99) mg/dL POC Glucose (mg/dL) 133 H 240 H (75-99) mg/dL Ferritin 1062.0 H (22.0-322.0) ng/mL ALT (4-49) U/L Total Protein (6.3-8.2) g/dL Albumin (3.5-5.0) g/dL 01/11/21 01/12/21 01/12/21 Range/Units 20:01 07:58 07:58 WBC 13.8 H (3.8-10.6) k/uL Neutrophils # 12.9 H (1.3-7.7) k/uL Lymphocytes # 0.3 L (1.0-4.8) k/uL APTT 49.4 H (22.0-30.0) sec Sodium (137-145) mmol/L BUN (9-20) mg/dL Glucose (74-99) mg/dL POC Glucose (mg/dL) 217 H (75-99) mg/dL Ferritin (22.0-322.0) ng/mL ALT (4-49) U/L Total Protein (6.3-8.2) g/dL Albumin (3.5-5.0) g/dL 01/12/21 Range/Units 07:58 WBC (3.8-10.6) k/uL Neutrophils # (1.3-7.7) k/uL Lymphocytes # (1.0-4.8) k/uL APTT (22.0-30.0) sec Sodium 133 L (137-145) mmol/L BUN 21 H (9-20) mg/dL Glucose 151 H (74-99) mg/dL POC Glucose (mg/dL) (75-99) mg/dL Ferritin (22.0-322.0) ng/mL ALT 50 H (4-49) U/L Total Protein 5.8 L (6.3-8.2) g/dL Albumin 2.9 L (3.5-5.0) g/dL Assessment and Plan (1) Pneumonia due to COVID-19 virus Narrative/Plan: Defer mgmt to Attending and Pulmonary Current Visit: Yes Status: Acute Priority: High Code(s): U07.1 - COVID-19; J12.82 - Pneumonia due to coronavirus disease 2018 SNOMED Code(s): 8 [id number] (2) DVT (deep venous thrombosis) Narrative/Plan: Likely a sequela of covid infection Antiphospholipid ab testing, lupus anticoagulant and beta 2 glycoprotein neg. Pt is a candidate for anticoagulation with DOAC on discharge. Cont heparin drip while inpt. Pt needs to f/u with his Vascular MD in [facility] on [place] for recommendations on duration of anticoagulation because of his history. Will cont to review new data as it becomes available re: thrombosis and anticoagulation in covid infected pt. Will update recommendations if needed Current Visit: Yes Status: Acute Priority: High Code(s): I82.409 - ACUTE EMBOLISM AND THOMBOS UNSP DEEP VN UNSP LOWER EXTREMITY SNOMED Code(s): 549561900
--- NOTE | 2021-01-12 11:21 | P.PN ---
Subjective Progress Note Date: 01/12/21 Hospital course: Patient is a 55-year-old male with a past medical history of diabetes mellitus, coronary artery disease with history of myocardial infarction and stent who presented with complaints of shortness of breath. He was transferred here from [place] and admitted under our services with consultation to pulmonology for acute hypoxic respiratory failure secondary to Covid 19 pneumonia, ARDS, and RLE DVT. Physical examination: Patient remains on heparin infusion for treatment of DVT. He remains on AIRVO with 50% oxygen and FiO2 of 55% maintaining SpO2 at 93%. Morning labs revealing mild leukocytosis with WBC count of 13.8, hyponatremia with sodium of 133, BUN 21 otherwise no significant abnormalities. Patient continues to show improvement and definitely with a more positive outlook. Patient states today that upon discharge he plans to go and stay with his daughter for a while until he fully recovers. He remains on IV heparin for treatment of DVT, will discuss further with Hem-onc regarding recommendations for transitioning to oral anticoagulation. He continues to deny any headache, lightheadedness, dizziness, chest pain, palpitations, nausea, or vomiting. General: No acute distress, appears at stated age Derm: warm, dry Head: atraumatic, normocephalic, symmetric Eyes: EOMI, no lid lag, anicteric sclera Mouth: no lip lesion, mucus membranes moist Cardiovascular: S1S2 reg, no murmur, positive posterior tibial pulse bilateral, Lungs: Diminished crackles at bases. No accessory muscle usage. Patient speaking in full sentences at rest with no conversational dyspnea this morning. Abdominal: soft, nontender to palpation, no guarding, no appreciable organomegaly Ext: no gross muscle atrophy, no edema, no contractures Neuro: CN II-XI grossly intact, no focal neuro deficits Psych: Alert, oriented, appropriate affect Assessment and plan of care: Acute hypoxic respiratory failure secondary to COVID-19 pneumonia COVID-19 pneumonia Right lower extremity DVT ARDS -Solumedrol day 11 -Baricitinib day 11 of 14 -Pulmonary following, appreciate further recommendations. -Continuation of Zinc, vitamin C, vitamin D -Follow inflammatory markers -Continuation of IV heparin for treatment of DVT, will discuss with hem-onc further recommendations for transitioning to oral anticoagulation -Hematology following, appreciate further recommendations -Anti-cardiolipin antibodies and antiphospholipid antibodies negative, beta 2 microglobulin normal findings at 1.40. -Vascualr surgery following, recommending close follow-up with vascular surgery in [place] upon discharge Prerenal azotemia Hyponatremia Dehydration -Improved after hydration with IV fluids. -Patient reports improvement in appetite and fluids were discontinued, we will c jayceeue to monitor closely. Diabetes mellitus type II -Jardiance and metformin on hold -Glycemic protocol with NovoLog sliding scale -Levemir -Follow blood glucose levels -Hemoglobin A1c 7.1% Hypertension, controlled -Monitor vital signs and Continue with Bystolic Chronic medical conditions include: Coronary artery disease History of Myocardial infarction Dyslipidemia CODE STATUS: Full code DVT prophylaxis: Heparin gtt Discussed with: Patient and RN Anticipated discharge: Clinical course to determine Anticipated discharge place: home, possibly with homecare A total of 45 minutes was spent on the care of this complex patient more than 50% of the time was spent in counseling and care coordination. Objective - Vital Signs Vital signs: Vital Signs Temp 98.7 F 01/12/21 10:01 Pulse 68 01/12/21 10:01 Resp 22 01/12/21 10:02 BP 89/44 01/12/21 10:01 Pulse Ox 92 L 01/12/21 10:01 Intake & Output 01/11/21 01/12/21 01/12/21 18:59 06:59 18:59 Intake Total 600 430 Output Total 1100 600 675 Balance -500 -600 -245 Weight 83 kg Intake: Intake, IV Titration 600 250 Amount Heparin Sod,Pork in 0.45% 250 NaCl 25,000 unit In 0.45 % NaCl 1 250ml.bag @ 18 UNITS/KG/HR 14.76 mls/hr IV .[id number] TYREL Rx#: [id number] Sodium Chloride 0.9% 1, 600 000 ml @ 75 mls/hr IV . [id number] T[facility]REL Rx#:[id number] Oral 180 Output: Urine 1100 600 675 Other: Voiding Method Urinal Urinal Urinal # Voids 2 - Labs CBC & Chem 7: 01/12/21 07:58 01/12/21 07:58 Labs: Abnormal Lab Results - Last 24 Hours (Table) 01/11/21 01/11/21 01/11/21 Range/Units 07:39 11:50 16:39 WBC (3.8-10.6) k/uL Neutrophils # (1.3-7.7) k/uL Lymphocytes # (1.0-4.8) k/uL APTT (22.0-30.0) sec Sodium (137-145) mmol/L BUN (9-20) mg/dL Glucose (74-99) mg/dL POC Glucose (mg/dL) 133 H 240 H (75-99) mg/dL Ferritin 1062.0 H (22.0-322.0) ng/mL ALT (4-49) U/L Total Protein (6.3-8.2) g/dL Albumin (3.5-5.0) g/dL 01/11/21 01/12/21 01/12/21 Range/Units 20:01 07:58 07:58 WBC 13.8 H (3.8-10.6) k/uL Neutrophils # 12.9 H (1.3-7.7) k/uL Lymphocytes # 0.3 L (1.0-4.8) k/uL APTT 49.4 H (22.0-30.0) sec Sodium (137-145) mmol/L BUN (9-20) mg/dL Glucose (74-99) mg/dL POC Glucose (mg/dL) 217 H (75-99) mg/dL Ferritin (22.0-322.0) ng/mL ALT (4-49) U/L Total Protein (6.3-8.2) g/dL Albumin (3.5-5.0) g/dL 01/12/21 Range/Units 07:58 WBC (3.8-10.6) k/uL Neutrophils # (1.3-7.7) k/uL Lymphocytes # (1.0-4.8) k/uL APTT (22.0-30.0) sec Sodium 133 L (137-145) mmol/L BUN 21 H (9-20) mg/dL Glucose 151 H (74-99) mg/dL POC Glucose (mg/dL) (75-99) mg/dL Ferritin (22.0-322.0) ng/mL ALT 50 H (4-49) U/L Total Protein 5.8 L (6.3-8.2) g/dL Albumin 2.9 L (3.5-5.0) g/dL
[2021-01-12 11:54] LABS: Glucose,Whole Blood 159 mg/dL (75-99)
--- NOTE | 2021-01-12 12:01 | XR ---
EXAMINATION TYPE: XR chest 1V portable DATE OF EXAM: 01/12/2021 COMPARISON: 01/06/2021 INDICATION: Cough short of breath TECHNIQUE: Single frontal view of the chest is obtained. FINDINGS: The heart size is normal. The pulmonary vasculature is normal. There are scattered peripheral infiltrates present greater at the lung bases. This is increasing over the interval. IMPRESSION: 1. Increasing bilateral lung infiltrates can be compatible with atypical pneumonia.
[2021-01-12] MEDS: BARICITINIB 2 MG TABLET PO SCH (12:16)
--- NOTE | 2021-01-12 12:52 | P.PN ---
Subjective Progress Note Date: 01/12/21 Principal diagnosis: COVID-19 pneumonia 56-year-old male, seen in the emergency room, on December 31. The patient has a history of diabetes and hypertension. He Presents to the emergency room complaining of shortness of breath. The patient was apparently transferred from [facility] and [place]. There he was apparently diagnosed with COVID pneumonia. The patient was diagnosed with bilateral pneumonia secondary to coronavirus. The patient was transferred down on BiPAP therapy. He was quite anxious. More recently, he was transitioned over to high flow nasal O2. He denied any chest pain or chest discomfort. There is no fever or chills. The patient has been having symptoms for at least 10 days and may be a bit longer. The patient has not received a coronavirus vaccine. Currently, the patient is on AIRVO, at 40 L/m and 55%. His saturations are in the low 90s. White count 2.43, hemoglobin 13.8, hematocrit 39.8, and platelet count 137,000. PT 10.4, INR 1, fibrinogen 524, PTT 25.1, and d-dimer 0.83. Sodium was 135, potassium 4, chloride 99, CO2 24, anion gap 12, BUN 28, creatinine 1. The patient's CK was 428. LDH was 647, and C-reactive protein was 7.9. Chest x-ray showed diffuse bilateral infiltrates. Currently, the patient's on albuterol inhaler, Decadron, Pradaxa, and his usual cardiac medications. Progress note dated 01/01/2021. This is a 56-year-old male, again seen in room 369. The patient has a history of diabetes and hypertension, and presented to the emergency department with shortness of breath. He was transferred down from [facility] in [place]. The patient apparently has been tested a couple times for coronavirus, and tested negative or inconclusive. He was retested here. The patient is being treated as if he has coronavirus pneumonia. Currently, he is on AIRVO. He was on 55 L/m and an FiO2 of 80%. The patient will be sent down on BiPAP for a CT angiogram. There is no new laboratory data today. The patient's major issue is shortness of breath and anxiety. The patient is seen today 01/02/2021 and follow-up on the selective care unit. He is currently resting fairly comfortably in bed. Still short of breath with minimal activity. Short of breath with conversation. He is currently on air bubble high flow oxygen at 55 L and 80% FiO2. He did test positive for the coronavirus by PCR here. White count 7.6. Hemoglobin 13.1. Lymphocytes 0.4. D-dimer 1.3. Sodium 139. Potassium 30.8. Creatinine 0.70. Glucose 187. He remains on DuoNeb inhalations, IV Solu-Medrol, vitamin supplements. Anticoagulated with Pradaxa. CT angiogram ruled out pulmonary embolism. There is bilateral multifocal and confluent groundglass opacities and organizing consolidation consistent with COVID-19 infection The patient is 01/03/2021 in follow-up on selective care unit. He is currently resting fairly comfortably in bed. Awake and alert in no acute distress. Continues with shortness of breath on exertion. He remains on air bubble at 55 L 88% FiO2 to maintain O2 saturations in the high 80s and low 90s. He is afebrile. Bradycardic. Blood glucose 245. He remains on DuoNeb inhalations, IV Solu-Medrol, vitamin supplements. Continued on Tessalon Perles. Anticoagulated with Pradaxa. He was initiated on Baricitinib yesterday. The patient is seen today in 01/12/2021 in follow-up on the selective care unit. He is currently resting comfortably in bed. Awake and alert in no acute distress. He remains on AirVo high flow oxygen at 15 L and 55% FiO2. O2 saturation 93%. Denies any worsening shortness of breath, cough or congestion. Improving slightly today compared to yesterday. Chest x-ray continues to show bilateral patchy infiltrates. Greater at the lung bases. White count 13.8. Hemoglobin 14.0. Sodium 133. Potassium 4.0. Creatinine 0.71. Glucose 159. He remains on a heparin drip. Continued on Baricitinib, bronchodilators, Decadron, vitamin supplements. Objective - Vital Signs Vital signs: Vital Signs Temp 98.7 F 01/12/21 10:01 Pulse 68 01/12/21 10:01 Resp 22 01/12/21 10:02 BP 89/44 01/12/21 10:01 Pulse Ox 93 L 01/12/21 10:45 Intake & Output 01/11/21 01/12/21 01/12/21 18:59 06:59 18:59 Intake Total 600 430 Output Total 1100 600 675 Balance -500 -600 -245 Weight 83 kg Intake: Intake, IV Titration 600 250 Amount Heparin Sod,Pork in 0.45% 250 NaCl 25,000 unit In 0.45 % NaCl 1 250ml.bag @ 18 UNITS/KG/HR 14.76 mls/hr IV .[id number] [facility] Rx#: [id number] Sodium Chloride 0.9% 1, 600 000 ml @ 75 mls/hr IV . [id number] [facility] Rx#:[id number] Oral 180 Output: Urine 1100 600 675 Other: Voiding Method Urinal Urinal Urinal # Voids 2 - Exam GENERAL EXAM: Alert, pleasant 55-year-old, on AirVo high flow oxygen at 50 L and 55% FiO2, fairly comfortable in no apparent distress. HEAD: Normocephalic. EYES: Normal reaction of pupils, equal size. NOSE: Clear with pink turbinates. THROAT: No erythema or exudates. NECK: No masses, no JVD. CHEST: No chest wall deformity. LUNGS: Equal air entry with coarse crackles in the posterior bases CVS: S1 and S2 normal with no audible murmur, regular rhythm. ABDOMEN: No hepatosplenomegaly, normal bowel sounds, no guarding or rigidity. SPINE: No scoliosis or deformity SKIN: No rashes CENTRAL NERVOUS SYSTEM: No focal deficits, tone is normal in all 4 extremities. EXTREMITIES: There is no peripheral edema. No clubbing, no cyanosis. Peripheral pulses are intact. - Labs CBC & Chem 7: 01/12/21 07:58 01/12/21 07:58 Labs: Abnormal Lab Results - Last 24 Hours (Table) 01/11/21 01/11/21 01/11/21 Range/Units 07:39 16:39 20:01 WBC (3.8-10.6) k/uL Neutrophils # (1.3-7.7) k/uL Lymphocytes # (1.0-4.8) k/uL APTT (22.0-30.0) sec Sodium (137-145) mmol/L BUN (9-20) mg/dL Glucose (74-99) mg/dL POC Glucose (mg/dL) 240 H 217 H (75-99) mg/dL Ferritin 1062.0 H (22.0-322.0) ng/mL ALT (4-49) U/L Total Protein (6.3-8.2) g/dL Albumin (3.5-5.0) g/dL 01/12/21 01/12/21 01/12/21 Range/Units 07:58 07:58 07:58 WBC 13.8 H (3.8-10.6) k/uL Neutrophils # 12.9 H (1.3-7.7) k/uL Lymphocytes # 0.3 L (1.0-4.8) k/uL APTT 49.4 H (22.0-30.0) sec Sodium 133 L (137-145) mmol/L BUN 21 H (9-20) mg/dL Glucose 151 H (74-99) mg/dL POC Glucose (mg/dL) (75-99) mg/dL Ferritin (22.0-322.0) ng/mL ALT 50 H (4-49) U/L Total Protein 5.8 L (6.3-8.2) g/dL Albumin 2.9 L (3.5-5.0) g/dL 01/12/21 Range/Units 11:51 WBC (3.8-10.6) k/uL Neutrophils # (1.3-7.7) k/uL Lymphocytes # (1.0-4.8) k/uL APTT (22.0-30.0) sec Sodium (137-145) mmol/L BUN (9-20) mg/dL Glucose (74-99) mg/dL POC Glucose (mg/dL) 159 H (75-99) mg/dL Ferritin (22.0-322.0) ng/mL ALT (4-49) U/L Total Protein (6.3-8.2) g/dL Albumin (3.5-5.0) g/dL Assessment and Plan Assessment: 1 Acute hypoxemic respiratory failure secondary to coronavirus pneumonia. Initiated on Baricitinib 01/02/2021. 2 History of diabetes mellitus. 3 History of hypertension. 4 History of coronary artery disease. 5 History of myocardial infarction. 6 History of hyperlipidemia. Plan: The patient was seen and evaluated by Dr. Girard Chest x-ray and labs reviewed Continued on Baricitinib, Decadron, vitamins Remains on a heparin drip per hematology Titrate down the FiO2 as tolerated Increase his activity as tolerated Prone while in bed We will continue to follow I, the cosigning physician, performed a history & physical examination of the patient. Lungs sounds with coarse crackles in the posterior bases. Maintaining good O2 saturations in the 90s on AirVo 50L and 55% FiO2. I discussed the assessment and plan of care with my nurse practitioner, Reena Morgan. I attest to the above note as dictated by her.
[2021-01-12 14:08] VITALS: BMI 27.8
[2021-01-12 16:47] LABS: Glucose,Whole Blood 226 mg/dL (75-99)
[2021-01-12 19:49] LABS: Glucose,Whole Blood 186 mg/dL (75-99)
[2021-01-13 06:04] LABS: Glucose,Whole Blood 177 mg/dL (75-99)
[2021-01-13] MEDS: INSULIN DETEMIR (LEVEMIR) 100 UNIT/ML SYR SQ SCH (07:03)
[2021-01-13] MEDS: INSULIN ASPART (NovoLOG) 100 UNIT/ML VIAL SQ SCH ×4 (07:03→20:54)
[2021-01-13] MEDS: PANTOPRAZOLE 40 MG TABLET PO SCH ×2 (07:03→16:45)
[2021-01-13 08:08] LABS: Basophils % (A) 0 %; Eosinophils # (A) 0.1 k/uL (0-0.7); Eosinophils % (A) 1 %; HCT 40.8 % (39.0-53.0); HGB 13.3 gm/dL (13.0-17.5); Lymphocytes # (A) 0.4 k/uL (1.0-4.8); Lymphocytes % (A) 4 %; MCH 28.4 pg (25.0-35.0); MCHC 32.5 g/dL (31.0-37.0); MCV 87.2 fL (80.0-100.0); Mean Platelet Volume 7.4; Monocytes # (A) 0.4 k/uL (0-1.0); Monocytes % (A) 4 %; Neutrophils # (A) 8.2 k/uL (1.3-7.7); Neutrophils % (A) 90 %; Platelet Count 182 k/uL (150-450); RBC 4.68 m/uL (4.30-5.90); RDW 13.3 % (11.5-15.5); WBC 9.1 k/uL (3.8-10.6)
[2021-01-13 08:33] LABS: Partial Thromboplastin Time 40.1 sec (22.0-30.0)
[2021-01-13] MEDS: CHOLECALCIFEROL 25 MCG (1000 IU) TABLET PO SCH (09:01)
[2021-01-13] MEDS: HYDROcodone/APAP 5-325MG 1 EACH TAB PO PRN ×2 (09:02→21:57)
[2021-01-13] MEDS: ASCORBIC ACID 500 MG TAB PO SCH (09:02)
[2021-01-13] MEDS: NEBIVOLOL 5 MG TAB PO SCH (09:02)
[2021-01-13] MEDS: TICAGRELOR 90 MG TAB PO SCH ×2 (09:02→20:54)
[2021-01-13] MEDS: dexAMETHasone 2 MG TAB PO SCH (09:02)
[2021-01-13] MEDS: EZETIMIBE 10 MG TAB PO SCH (09:03)
[2021-01-13] MEDS: LOSARTAN 25 MG TAB PO SCH (09:03)
[2021-01-13] MEDS: ZINC SULFATE 220 MG CAP PO SCH (09:03)
[2021-01-13] MEDS: HEPARIN SOD,PORK IN 0.45% NACL 25,000 UNIT in 0.45% NACL 1 250ML.BAG IV SCH ×2 (09:04→16:50)
[2021-01-13] MEDS: ALBUTEROL HFA INHALER INHALATION PRN ×3 (09:12→20:11)
[2021-01-13 09:45] LABS: ALT 43 U/L (4-49); AST 28 U/L (17-59); African American GFR (CKD) >90 (>60 ml/min/1.73 sqM); Albumin 2.9 g/dL (3.5-5.0); Alkaline Phosphatase 53 U/L (38-126); Anion Gap 6 mmol/L; Blood Urea Nitrogen 19 mg/dL (9-20); C Reactive Protein 6.9 mg/dL (<1.0); Calcium 8.5 mg/dL (8.4-10.2); Carbon Dioxide 25 mmol/L (22-30); Chloride 102 mmol/L (98-107); Glucose 208 mg/dL (74-99); LDH 974 U/L (313-618); Magnesium 2.1 mg/dL (1.6-2.3); Non-African American GFR(CKD) >90 (>60 ml/min/1.73 sqM); Sodium 133 mmol/L (137-145); Total Bilirubin 0.8 mg/dL (0.2-1.3); Total Protein 5.9 g/dL (6.3-8.2)
--- NOTE | 2021-01-13 12:01 | P.PN ---
Subjective Progress Note Date: 01/13/21 Improving oxygen requirement. Pt feels clinically improved, higher energy levels, better appetite. Was able to sit in chair yesterday, will do so again today. Objective - Vital Signs Vital signs: Vital Signs Temp 98.2 F 01/13/21 09:31 Pulse 59 L 01/13/21 09:31 Resp 28 H 01/13/21 09:31 BP 98/58 01/13/21 09:31 Pulse Ox 93 L 01/13/21 09:31 Intake & Output 01/12/21 01/13/21 01/13/21 18:59 06:59 18:59 Intake Total 790 372.727 Output Total 7773 059 7698 Balance -985 -300 -627.273 Weight 83 kg 84.5 kg Intake: Intake, IV Titration 250 192.727 Amount Heparin Sod,Pork in 0.45% 250 192.727 NaCl 25,000 unit In 0.45 % NaCl 1 250ml.bag @ 18 UNITS/KG/HR 14.76 mls/hr IV .[id number] [facility] Rx#: [id number] Oral 540 180 Output: Urine 1691 290 2376 Other: Voiding Method Urinal Urinal Urinal # Voids 1 # Bowel Movements 1 - Exam Gen: awake, alert HEENT: normocephalic, atraumatic, good hearing acuity, moist mucous membranes Resp: Impaired air exchange, symmetric chest expansion, AirVo CVS: good distal perfusion x 4, GI: soft, NTTP, ND : no SPT, no CVAT, yeh catheter not present MSK: no pitting edema, no clubbing Neuro: non-focal, moving all extremities Psych: cooperative, euthymic mood - Labs CBC & Chem 7: 01/13/21 07:47 01/13/21 07:47 Labs: Abnormal Lab Results - Last 24 Hours (Table) 01/12/21 01/12/21 01/13/21 Range/Units 16:45 19:47 06:03 Neutrophils # (1.3-7.7) k/uL Lymphocytes # (1.0-4.8) k/uL APTT (22.0-30.0) sec D-Dimer (<0.60) mg/L FEU Sodium (137-145) mmol/L Creatinine (0.66-1.25) mg/dL Glucose (74-99) mg/dL POC Glucose (mg/dL) 226 H 186 H 177 H (75-99) mg/dL Lactate Dehydrogenase (313-618) U/L C-Reactive Protein (<1.0) mg/dL Total Protein (6.3-8.2) g/dL Albumin (3.5-5.0) g/dL 01/13/21 01/13/21 01/13/21 Range/Units 07:47 07:47 07:47 Neutrophils # 8.2 H (1.3-7.7) k/uL Lymphocytes # 0.4 L (1.0-4.8) k/uL APTT 40.1 H (22.0-30.0) sec D-Dimer 3.09 H (<0.60) mg/L FEU Sodium 133 L (137-145) mmol/L Creatinine 0.60 L (0.66-1.25) mg/dL Glucose 208 H (74-99) mg/dL POC Glucose (mg/dL) (75-99) mg/dL Lactate Dehydrogenase 974 H (313-618) U/L C-Reactive Protein 6.9 H (<1.0) mg/dL Total Protein 5.9 L (6.3-8.2) g/dL Albumin 2.9 L (3.5-5.0) g/dL Assessment and Plan Assessment: Acute hypoxic respiratory failure ARDS secondary to COVID-19 pneumonia Right lower extremity DVT -Solumedrol day 12 -Baricitinib day 12 of 14 -Pulmonary following, appreciate further recommendations. -Continuation of Zinc, vitamin C, vitamin D -Follow inflammatory markers -Heparin gtt -Hematology following, appreciate further recommendations -Vascular surgery following, recommending close follow-up with vascular surgery in [place] upon discharge Hyponatremia Dehydration -Improved after hydration with IV fluids. -Patient reports improvement in appetite and fluids were discontinued, we will continue to monitor closely. Diabetes mellitus type II -Jardiance and metformin on hold -Glycemic protocol with NovoLog sliding scale -Levemir -Follow blood glucose levels -Hemoglobin A1c 7.1% Hypertension, controlled -Monitor vital signs and Continue with Bystolic Chronic medical conditions include: Coronary artery disease History of Myocardial infarction Dyslipidemia CODE STATUS: Full code DVT prophylaxis: Heparin gtt Discussed with: Patient and RN Anticipated discharge: Clinical course to determine Anticipated discharge place: home, possibly with homecare
[2021-01-13 12:04] LABS: Glucose,Whole Blood 134 mg/dL (75-99)
[2021-01-13] MEDS: BARICITINIB 2 MG TABLET PO SCH (12:40)
--- NOTE | 2021-01-13 13:50 | P.PN ---
Subjective Progress Note Date: 01/13/21 Principal diagnosis: COVID-19 pneumonia 56-year-old male, seen in the emergency room, on December 31. The patient has a history of diabetes and hypertension. He Presents to the emergency room complaining of shortness of breath. The patient was apparently transferred from [facility] and [place]. There he was apparently diagnosed with COVID pneumonia. The patient was diagnosed with bilateral pneumonia secondary to coronavirus. The patient was transferred down on BiPAP therapy. He was quite anxious. More recently, he was transitioned over to high flow nasal O2. He denied any chest pain or chest discomfort. There is no fever or chills. The patient has been having symptoms for at least 10 days and may be a bit longer. The patient has not received a coronavirus vaccine. Currently, the patient is on AIRVO, at 40 L/m and 55%. His saturations are in the low 90s. White count 2.43, hemoglobin 13.8, hematocrit 39.8, and platelet count 137,000. PT 10.4, INR 1, fibrinogen 524, PTT 25.1, and d-dimer 0.83. Sodium was 135, potassium 4, chloride 99, CO2 24, anion gap 12, BUN 28, creatinine 1. The patient's CK was 428. LDH was 647, and C-reactive protein was 7.9. Chest x-ray showed diffuse bilateral infiltrates. Currently, the patient's on albuterol inhaler, Decadron, Pradaxa, and his usual cardiac medications. Progress note dated 01/01/2021. This is a 56-year-old male, again seen in room 369. The patient has a history of diabetes and hypertension, and presented to the emergency department with shortness of breath. He was transferred down from [facility] in [place]. The patient apparently has been tested a couple times for coronavirus, and tested negative or inconclusive. He was retested here. The patient is being treated as if he has coronavirus pneumonia. Currently, he is on AIRVO. He was on 55 L/m and an FiO2 of 80%. The patient will be sent down on BiPAP for a CT angiogram. There is no new laboratory data today. The patient's major issue is shortness of breath and anxiety. The patient is seen today 01/02/2021 and follow-up on the selective care unit. He is currently resting fairly comfortably in bed. Still short of breath with minimal activity. Short of breath with conversation. He is currently on air bubble high flow oxygen at 55 L and 80% FiO2. He did test positive for the coronavirus by PCR here. White count 7.6. Hemoglobin 13.1. Lymphocytes 0.4. D-dimer 1.3. Sodium 139. Potassium 30.8. Creatinine 0.70. Glucose 187. He remains on DuoNeb inhalations, IV Solu-Medrol, vitamin supplements. Anticoagulated with Pradaxa. CT angiogram ruled out pulmonary embolism. There is bilateral multifocal and confluent groundglass opacities and organizing consolidation consistent with COVID-19 infection The patient is 01/03/2021 in follow-up on selective care unit. He is currently resting fairly comfortably in bed. Awake and alert in no acute distress. Continues with shortness of breath on exertion. He remains on air bubble at 55 L 88% FiO2 to maintain O2 saturations in the high 80s and low 90s. He is afebrile. Bradycardic. Blood glucose 245. He remains on DuoNeb inhalations, IV Solu-Medrol, vitamin supplements. Continued on Tessalon Perles. Anticoagulated with Pradaxa. He was initiated on Baricitinib yesterday. The patient is seen today in 01/12/2021 in follow-up on the selective care unit. He is currently resting comfortably in bed. Awake and alert in no acute distress. He remains on AirVo high flow oxygen at 15 L and 55% FiO2. O2 saturation 93%. Denies any worsening shortness of breath, cough or congestion. Improving slightly today compared to yesterday. Chest x-ray continues to show bilateral patchy infiltrates. Greater at the lung bases. White count 13.8. Hemoglobin 14.0. Sodium 133. Potassium 4.0. Creatinine 0.71. Glucose 159. He remains on a heparin drip. Continued on Baricitinib, bronchodilators, Decadron, vitamin supplements. Patient is seen today in 01/13/2021 in follow-up on the selective care unit. He is awake and alert in no acute distress. He is feeling a bit stronger today compared to yesterday. A little S short of breath. He is down to 40 L and 55% FiO2 via the AirVo high flow oxygen. He remains on a heparin drip. White count 9.1. Hemoglobin 13.3. Lymphocytes 0.4. D-dimer 3.09. Sodium 133. Potassium 4.0. Creatinine 0.60. LDH 974. C-reactive protein 6.9. Continued on Baricitinib, bronchodilators, Decadron, vitamin supplements. Objective - Vital Signs Vital signs: Vital Signs Temp 98.2 F 01/13/21 09:31 Pulse 50 L 01/13/21 12:44 Resp 22 01/13/21 12:44 BP 97/58 01/13/21 12:44 Pulse Ox 93 L 01/13/21 12:44 Intake & Output 01/12/21 01/13/21 01/13/21 18:59 06:59 18:59 Intake Total 790 372.727 Output Total 6178 579 3951 Balance -985 -300 -627.273 Weight 83 kg 84.5 kg Intake: Intake, IV Titration 250 192.727 Amount Heparin Sod,Pork in 0.45% 250 192.727 NaCl 25,000 unit In 0.45 % NaCl 1 250ml.bag @ 18 UNITS/KG/HR 14.76 mls/hr IV .[id number] [facility] Rx#: [id number] Oral 540 180 Output: Urine 2802 760 4496 Other: Voiding Method Urinal Urinal Urinal # Voids 1 # Bowel Movements 1 - Exam GENERAL EXAM: Alert, pleasant 55-year-old, on AirVo high flow oxygen at 40 L and 55% FiO2, fairly comfortable in no apparent distress. HEAD: Normocephalic. EYES: Normal reaction of pupils, equal size. NOSE: Clear with pink turbinates. THROAT: No erythema or exudates. NECK: No masses, no JVD. CHEST: No chest wall deformity. LUNGS: Equal air entry with coarse crackles in the posterior bases CVS: S1 and S2 normal with no audible murmur, regular rhythm. ABDOMEN: No hepatosplenomegaly, normal bowel sounds, no guarding or rigidity. SPINE: No scoliosis or deformity SKIN: No rashes CENTRAL NERVOUS SYSTEM: No focal deficits, tone is normal in all 4 extremities. EXTREMITIES: There is no peripheral edema. No clubbing, no cyanosis. Peripheral pulses are intact. - Labs CBC & Chem 7: 01/13/21 07:47 01/13/21 07:47 Labs: Abnormal Lab Results - Last 24 Hours (Table) 01/12/21 01/12/21 01/13/21 Range/Units 16:45 19:47 06:03 Neutrophils # (1.3-7.7) k/uL Lymphocytes # (1.0-4.8) k/uL APTT (22.0-30.0) sec D-Dimer (<0.60) mg/L FEU Sodium (137-145) mmol/L Creatinine (0.66-1.25) mg/dL Glucose (74-99) mg/dL POC Glucose (mg/dL) 226 H 186 H 177 H (75-99) mg/dL Lactate Dehydrogenase (313-618) U/L C-Reactive Protein (<1.0) mg/dL Total Protein (6.3-8.2) g/dL Albumin (3.5-5.0) g/dL 01/13/21 01/13/21 01/13/21 Range/Units 07:47 07:47 07:47 Neutrophils # 8.2 H (1.3-7.7) k/uL Lymphocytes # 0.4 L (1.0-4.8) k/uL APTT 40.1 H (22.0-30.0) sec D-Dimer 3.09 H (<0.60) mg/L FEU Sodium 133 L (137-145) mmol/L Creatinine 0.60 L (0.66-1.25) mg/dL Glucose 208 H (74-99) mg/dL POC Glucose (mg/dL) (75-99) mg/dL Lactate Dehydrogenase 974 H (313-618) U/L C-Reactive Protein 6.9 H (<1.0) mg/dL Total Protein 5.9 L (6.3-8.2) g/dL Albumin 2.9 L (3.5-5.0) g/dL 01/13/21 Range/Units 12:02 Neutrophils # (1.3-7.7) k/uL Lymphocytes # (1.0-4.8) k/uL APTT (22.0-30.0) sec D-Dimer (<0.60) mg/L FEU Sodium (137-145) mmol/L Creatinine (0.66-1.25) mg/dL Glucose (74-99) mg/dL POC Glucose (mg/dL) 134 H (75-99) mg/dL Lactate Dehydrogenase (313-618) U/L C-Reactive Protein (<1.0) mg/dL Total Protein (6.3-8.2) g/dL Albumin (3.5-5.0) g/dL Assessment and Plan Assessment: 1 Acute hypoxemic respiratory failure secondary to CoVID 19 pneumonia. Initiated on Baricitinib 01/02/2021. 2 History of diabetes mellitus. 3 History of hypertension. 4 History of coronary artery disease. 5 History of myocardial infarction. 6 History of hyperlipidemia. Plan: The patient was seen and evaluated by Dr. Girard Continued on Baricitinib, Decadron, vitamins Remains on a heparin drip per hematology Titrate down the FiO2 as tolerated Increase his activity as tolerated We will continue to follow I, the cosigning physician, performed a history & physical examination of the patient. Lungs sounds with coarse crackles in the posterior bases. Maintaining good O2 saturations in the 90s on AirVo 40L and 55% FiO2. I discussed the assessment and plan of care with my nurse practitioner, Reena Morgan. I attest to the above note as dictated by her.
[2021-01-13 16:40] LABS: Glucose,Whole Blood 207 mg/dL (75-99)
[2021-01-13 20:03] LABS: Glucose,Whole Blood 167 mg/dL (75-99)
[2021-01-14 06:11] LABS: Glucose,Whole Blood 138 mg/dL (75-99)
[2021-01-14] MEDS: PANTOPRAZOLE 40 MG TABLET PO SCH ×2 (06:51→17:57)
[2021-01-14] MEDS: INSULIN ASPART (NovoLOG) 100 UNIT/ML VIAL SQ SCH ×4 (06:52→20:32)
[2021-01-14] MEDS: INSULIN DETEMIR (LEVEMIR) 100 UNIT/ML SYR SQ SCH (06:52)
[2021-01-14 07:42] LABS: Basophils % (A) 0 %; Eosinophils # (A) 0.1 k/uL (0-0.7); Eosinophils % (A) 2 %; HCT 40.1 % (39.0-53.0); HGB 13.4 gm/dL (13.0-17.5); Lymphocytes # (A) 0.6 k/uL (1.0-4.8); Lymphocytes % (A) 8 %; MCH 29.1 pg (25.0-35.0); MCHC 33.3 g/dL (31.0-37.0); MCV 87.1 fL (80.0-100.0); Mean Platelet Volume 7.1; Monocytes # (A) 0.4 k/uL (0-1.0); Monocytes % (A) 5 %; Neutrophils # (A) 6.6 k/uL (1.3-7.7); Neutrophils % (A) 85 %; Platelet Count 192 k/uL (150-450); RBC 4.61 m/uL (4.30-5.90); RDW 13.4 % (11.5-15.5); WBC 7.8 k/uL (3.8-10.6)
[2021-01-14] MEDS: ALBUTEROL HFA INHALER INHALATION PRN ×4 (08:40→20:48)
[2021-01-14 09:12] LABS: C Reactive Protein 4.8 mg/dL (<1.0)
[2021-01-14] MEDS: HEPARIN SOD,PORK IN 0.45% NACL 25,000 UNIT in 0.45% NACL 1 250ML.BAG IV SCH (09:27)
[2021-01-14] MEDS: LOSARTAN 25 MG TAB PO SCH (09:28)
[2021-01-14] MEDS: ZINC SULFATE 220 MG CAP PO SCH (09:28)
[2021-01-14] MEDS: CHOLECALCIFEROL 25 MCG (1000 IU) TABLET PO SCH (09:28)
[2021-01-14] MEDS: NEBIVOLOL 5 MG TAB PO SCH (09:28)
[2021-01-14] MEDS: TICAGRELOR 90 MG TAB PO SCH ×2 (09:28→20:32)
[2021-01-14] MEDS: dexAMETHasone 2 MG TAB PO SCH (09:28)
[2021-01-14] MEDS: EZETIMIBE 10 MG TAB PO SCH (09:29)
[2021-01-14] MEDS: ASCORBIC ACID 500 MG TAB PO SCH (09:29)
[2021-01-14 09:31] LABS: ALT 52 U/L (4-49); AST 27 U/L (17-59); African American GFR (CKD) >90 (>60 ml/min/1.73 sqM); Albumin 2.9 g/dL (3.5-5.0); Alkaline Phosphatase 61 U/L (38-126); Anion Gap 5 mmol/L; Blood Urea Nitrogen 22 mg/dL (9-20); Calcium 8.6 mg/dL (8.4-10.2); Carbon Dioxide 28 mmol/L (22-30); Chloride 101 mmol/L (98-107); Glucose 137 mg/dL (74-99); LDH 885 U/L (313-618); Magnesium 2.1 mg/dL (1.6-2.3); Non-African American GFR(CKD) >90 (>60 ml/min/1.73 sqM); Potassium 4.1 mmol/L (3.5-5.1); Sodium 134 mmol/L (137-145); Total Bilirubin 0.7 mg/dL (0.2-1.3); Total Protein 5.9 g/dL (6.3-8.2)
--- NOTE | 2021-01-14 11:45 | P.PN ---
Subjective Progress Note Date: 01/14/21 Principal diagnosis: COVID-19 pneumonia 56-year-old male, seen in the emergency room, on December 31. The patient has a history of diabetes and hypertension. He Presents to the emergency room complaining of shortness of breath. The patient was apparently transferred from [facility] and [place]. There he was apparently diagnosed with COVID pneumonia. The patient was diagnosed with bilateral pneumonia secondary to coronavirus. The patient was transferred down on BiPAP therapy. He was quite anxious. More recently, he was transitioned over to high flow nasal O2. He denied any chest pain or chest discomfort. There is no fever or chills. The patient has been having symptoms for at least 10 days and may be a bit longer. The patient has not received a coronavirus vaccine. Currently, the patient is on AIRVO, at 40 L/m and 55%. His saturations are in the low 90s. White count 2.43, hemoglobin 13.8, hematocrit 39.8, and platelet count 137,000. PT 10.4, INR 1, fibrinogen 524, PTT 25.1, and d-dimer 0.83. Sodium was 135, potassium 4, chloride 99, CO2 24, anion gap 12, BUN 28, creatinine 1. The patient's CK was 428. LDH was 647, and C-reactive protein was 7.9. Chest x-ray showed diffuse bilateral infiltrates. Currently, the patient's on albuterol inhaler, Decadron, Pradaxa, and his usual cardiac medications. Progress note dated 01/01/2021. This is a 56-year-old male, again seen in room 369. The patient has a history of diabetes and hypertension, and presented to the emergency department with shortness of breath. He was transferred down from [facility] in [place]. The patient apparently has been tested a couple times for coronavirus, and tested negative or inconclusive. He was retested here. The patient is being treated as if he has coronavirus pneumonia. Currently, he is on AIRVO. He was on 55 L/m and an FiO2 of 80%. The patient will be sent down on BiPAP for a CT angiogram. There is no new laboratory data today. The patient's major issue is shortness of breath and anxiety. The patient is seen today 01/02/2021 and follow-up on the selective care unit. He is currently resting fairly comfortably in bed. Still short of breath with minimal activity. Short of breath with conversation. He is currently on air bubble high flow oxygen at 55 L and 80% FiO2. He did test positive for the coronavirus by PCR here. White count 7.6. Hemoglobin 13.1. Lymphocytes 0.4. D-dimer 1.3. Sodium 139. Potassium 30.8. Creatinine 0.70. Glucose 187. He remains on DuoNeb inhalations, IV Solu-Medrol, vitamin supplements. Anticoagulated with Pradaxa. CT angiogram ruled out pulmonary embolism. There is bilateral multifocal and confluent groundglass opacities and organizing consolidation consistent with COVID-19 infection The patient is 01/03/2021 in follow-up on selective care unit. He is currently resting fairly comfortably in bed. Awake and alert in no acute distress. Continues with shortness of breath on exertion. He remains on air bubble at 55 L 88% FiO2 to maintain O2 saturations in the high 80s and low 90s. He is afebrile. Bradycardic. Blood glucose 245. He remains on DuoNeb inhalations, IV Solu-Medrol, vitamin supplements. Continued on Tessalon Perles. Anticoagulated with Pradaxa. He was initiated on Baricitinib yesterday. The patient is seen today in 01/12/2021 in follow-up on the selective care unit. He is currently resting comfortably in bed. Awake and alert in no acute distress. He remains on AirVo high flow oxygen at 15 L and 55% FiO2. O2 saturation 93%. Denies any worsening shortness of breath, cough or congestion. Improving slightly today compared to yesterday. Chest x-ray continues to show bilateral patchy infiltrates. Greater at the lung bases. White count 13.8. Hemoglobin 14.0. Sodium 133. Potassium 4.0. Creatinine 0.71. Glucose 159. He remains on a heparin drip. Continued on Baricitinib, bronchodilators, Decadron, vitamin supplements. Patient is seen today in 01/13/2021 in follow-up on the selective care unit. He is awake and alert in no acute distress. He is feeling a bit stronger today compared to yesterday. A little S short of breath. He is down to 40 L and 55% FiO2 via the AirVo high flow oxygen. He remains on a heparin drip. White count 9.1. Hemoglobin 13.3. Lymphocytes 0.4. D-dimer 3.09. Sodium 133. Potassium 4.0. Creatinine 0.60. LDH 974. C-reactive protein 6.9. Continued on Baricitinib, bronchodilators, Decadron, vitamin supplements. The patient is seen today 01/14/2021 in follow-up on the selective care unit. He is currently sitting up in a chair at the bedside. Awake and alert in no acute distress. Breathing a bit easier today compared to yesterday. He is down to 40 L and 40% FiO2 via the AirVo high flow oxygen. White count 11.8. Hemoglobin 13.4. Lymphocytes 0.6. Sodium 134. Potassium 4.1. Creatinine 0.77. LDH 85. C-reactive protein 4.8. He remains on Baricitinib. Continues on Decadron and vitamin supplements. He remains on a heparin drip. Objective - Vital Signs Vital signs: Vital Signs Temp 98.4 F 01/14/21 08:00 Pulse 62 01/14/21 08:00 Resp 18 01/14/21 08:00 BP 94/65 01/14/21 08:00 Pulse Ox 90 L 01/14/21 08:40 Intake & Output 01/13/21 01/14/21 01/14/21 18:59 06:59 18:59 Intake Total 766.199 83.039 93.489 Output Total 1425 930 Balance -658.801 -846.961 93.489 Weight 84.4 kg Intake: Intake, IV Titration 266.199 83.039 93.489 Amount Heparin Sod,Pork in 0.45% 266.199 83.039 93.489 NaCl 25,000 unit In 0.45 % NaCl 1 250ml.bag @ 18 UNITS/KG/HR 14.76 mls/hr IV .[id number] [facility] Rx#: [id number] Oral 500 Output: Urine 1425 930 Other: Voiding Method Urinal Urinal # Voids 1 - Exam GENERAL EXAM: Alert, pleasant 55-year-old, on AirVo high flow oxygen at 40 L and 40% FiO2, fairly comfortable in no apparent distress. HEAD: Normocephalic. EYES: Normal reaction of pupils, equal size. NOSE: Clear with pink turbinates. THROAT: No erythema or exudates. NECK: No masses, no JVD. CHEST: No chest wall deformity. LUNGS: Equal air entry with coarse crackles in the posterior bases CVS: S1 and S2 normal with no audible murmur, regular rhythm. ABDOMEN: No hepatosplenomegaly, normal bowel sounds, no guarding or rigidity. SPINE: No scoliosis or deformity SKIN: No rashes CENTRAL NERVOUS SYSTEM: No focal deficits, tone is normal in all 4 extremities. EXTREMITIES: There is no peripheral edema. No clubbing, no cyanosis. Peripheral pulses are intact. - Labs CBC & Chem 7: 01/14/21 07:16 01/14/21 07:16 Labs: Abnormal Lab Results - Last 24 Hours (Table) 01/13/21 01/13/21 01/13/21 Range/Units 07:47 12:02 16:05 Lymphocytes # (1.0-4.8) k/uL APTT 39.8 H (22.0-30.0) sec Sodium (137-145) mmol/L BUN (9-20) mg/dL Glucose (74-99) mg/dL POC Glucose (mg/dL) 134 H (75-99) mg/dL Ferritin 1254.0 H (22.0-322.0) ng/mL ALT (4-49) U/L Lactate Dehydrogenase (313-618) U/L C-Reactive Protein (<1.0) mg/dL Total Protein (6.3-8.2) g/dL Albumin (3.5-5.0) g/dL 01/13/21 01/13/21 01/13/21 Range/Units 16:38 20:00 22:10 Lymphocytes # (1.0-4.8) k/uL APTT 44.7 H (22.0-30.0) sec Sodium (137-145) mmol/L BUN (9-20) mg/dL Glucose (74-99) mg/dL POC Glucose (mg/dL) 207 H 167 H (75-99) mg/dL Ferritin (22.0-322.0) ng/mL ALT (4-49) U/L Lactate Dehydrogenase (313-618) U/L C-Reactive Protein (<1.0) mg/dL Total Protein (6.3-8.2) g/dL Albumin (3.5-5.0) g/dL 01/14/21 01/14/21 01/14/21 Range/Units 06:09 07:16 07:16 Lymphocytes # 0.6 L (1.0-4.8) k/uL APTT (22.0-30.0) sec Sodium 134 L (137-145) mmol/L BUN 22 H (9-20) mg/dL Glucose 137 H (74-99) mg/dL POC Glucose (mg/dL) 138 H (75-99) mg/dL Ferritin (22.0-322.0) ng/mL ALT 52 H (4-49) U/L Lactate Dehydrogenase 885 H (313-618) U/L C-Reactive Protein 4.8 H (<1.0) mg/dL Total Protein 5.9 L (6.3-8.2) g/dL Albumin 2.9 L (3.5-5.0) g/dL 01/14/21 Range/Units 07:16 Lymphocytes # (1.0-4.8) k/uL APTT 47.3 H (22.0-30.0) sec Sodium (137-145) mmol/L BUN (9-20) mg/dL Glucose (74-99) mg/dL POC Glucose (mg/dL) (75-99) mg/dL Ferritin (22.0-322.0) ng/mL ALT (4-49) U/L Lactate Dehydrogenase (313-618) U/L C-Reactive Protein (<1.0) mg/dL Total Protein (6.3-8.2) g/dL Albumin (3.5-5.0) g/dL Assessment and Plan Assessment: 1 Acute hypoxemic respiratory failure secondary to CoVID 19 pneumonia. Initiated on Baricitinib 01/02/2021. 2 History of diabetes mellitus. 3 History of hypertension. 4 History of coronary artery disease. 5 History of myocardial infarction. 6 History of hyperlipidemia. Plan: The patient was seen and evaluated by Dr. Girard Labs reviewed Continued on Baricitinib, Decadron, vitamins Remains on a heparin drip per hematology Remains on AirVo high flow oxygen at 40 L and 40% FiO2 Titrate down the FiO2 as tolerated Increase his activity as tolerated We will continue to follow I, the cosigning physician, performed a history & physical examination of the patient. Lungs sounds with coarse crackles in the posterior bases. Maintaining good O2 saturations in the 90s on AirVo 40L and 40% FiO2. I discussed the assessment and plan of care with my nurse practitioner, Reena Morgan. I attest to the above note as dictated by her.
[2021-01-14 12:18] LABS: Glucose,Whole Blood 162 mg/dL (75-99)
[2021-01-14] MEDS: BARICITINIB 2 MG TABLET PO SCH (12:55)
--- NOTE | 2021-01-14 13:08 | P.PN ---
Subjective Progress Note Date: 01/14/21 Patient reports feeling much more energetic today. Is sitting in a chair, resting and breathing comfortably. Airvo settings are being down titrated by respiratory therapy.. Objective - Vital Signs Vital signs: Vital Signs Temp 98.7 F 01/14/21 12:00 Pulse 66 01/14/21 12:00 Resp 20 01/14/21 12:00 BP 94/61 01/14/21 12:00 Pulse Ox 88 L 01/14/21 12:29 Intake & Output 01/13/21 01/14/21 01/14/21 18:59 06:59 18:59 Intake Total 766.199 83.039 93.489 Output Total 1425 930 425 Balance -658.801 -846.961 -331.511 Weight 84.4 kg Intake: Intake, IV Titration 266.199 83.039 93.489 Amount Heparin Sod,Pork in 0.45% 266.199 83.039 93.489 NaCl 25,000 unit In 0.45 % NaCl 1 250ml.bag @ 18 UNITS/KG/HR 14.76 mls/hr IV .[id number] [facility] Rx#: [id number] Oral 500 Output: Urine 1425 930 425 Other: Voiding Method Urinal Urinal # Voids 1 - Exam Gen: awake, alert HEENT: normocephalic, atraumatic, good hearing acuity, moist mucous membranes Resp: Impaired air exchange, symmetric chest expansion, AirVo CVS: good distal perfusion x 4, GI: soft, NTTP, ND : no SPT, no CVAT, yeh catheter not present MSK: no pitting edema, no clubbing Neuro: non-focal, moving all extremities Psych: cooperative, euthymic mood - Labs CBC & Chem 7: 01/14/21 07:16 01/14/21 07:16 Labs: Abnormal Lab Results - Last 24 Hours (Table) 01/13/21 01/13/21 01/13/21 Range/Units 07:47 16:05 16:38 Lymphocytes # (1.0-4.8) k/uL APTT 39.8 H (22.0-30.0) sec Sodium (137-145) mmol/L BUN (9-20) mg/dL Glucose (74-99) mg/dL POC Glucose (mg/dL) 207 H (75-99) mg/dL Ferritin 1254.0 H (22.0-322.0) ng/mL ALT (4-49) U/L Lactate Dehydrogenase (313-618) U/L C-Reactive Protein (<1.0) mg/dL Total Protein (6.3-8.2) g/dL Albumin (3.5-5.0) g/dL 01/13/21 01/13/21 01/14/21 Range/Units 20:00 22:10 06:09 Lymphocytes # (1.0-4.8) k/uL APTT 44.7 H (22.0-30.0) sec Sodium (137-145) mmol/L BUN (9-20) mg/dL Glucose (74-99) mg/dL POC Glucose (mg/dL) 167 H 138 H (75-99) mg/dL Ferritin (22.0-322.0) ng/mL ALT (4-49) U/L Lactate Dehydrogenase (313-618) U/L C-Reactive Protein (<1.0) mg/dL Total Protein (6.3-8.2) g/dL Albumin (3.5-5.0) g/dL 01/14/21 01/14/21 01/14/21 Range/Units 07:16 07:16 07:16 Lymphocytes # 0.6 L (1.0-4.8) k/uL APTT 47.3 H (22.0-30.0) sec Sodium 134 L (137-145) mmol/L BUN 22 H (9-20) mg/dL Glucose 137 H (74-99) mg/dL POC Glucose (mg/dL) (75-99) mg/dL Ferritin (22.0-322.0) ng/mL ALT 52 H (4-49) U/L Lactate Dehydrogenase 885 H (313-618) U/L C-Reactive Protein 4.8 H (<1.0) mg/dL Total Protein 5.9 L (6.3-8.2) g/dL Albumin 2.9 L (3.5-5.0) g/dL 01/14/21 Range/Units 12:15 Lymphocytes # (1.0-4.8) k/uL APTT (22.0-30.0) sec Sodium (137-145) mmol/L BUN (9-20) mg/dL Glucose (74-99) mg/dL POC Glucose (mg/dL) 162 H (75-99) mg/dL Ferritin (22.0-322.0) ng/mL ALT (4-49) U/L Lactate Dehydrogenase (313-618) U/L C-Reactive Protein (<1.0) mg/dL Total Protein (6.3-8.2) g/dL Albumin (3.5-5.0) g/dL Assessment and Plan Assessment: Acute hypoxic respiratory failure ARDS secondary to COVID-19 pneumonia Right lower extremity DVT -Solumedrol day 13 -Baricitinib day 13 of 14 -Pulmonary following, appreciate further recommendations. -Continuation of Zinc, vitamin C, vitamin D -Follow inflammatory markers -Heparin gtt -Hematology following, appreciate further recommendations -Vascular surgery following, recommending close follow-up with vascular surgery in [place] upon discharge Hyponatremia Dehydration -Improved after hydration with IV fluids. -Patient reports improvement in appetite and fluids were discontinued, we will continue to monitor closely. Diabetes mellitus type II -Jardiance and metformin on hold -Glycemic protocol with NovoLog sliding scale -Levemir -Follow blood glucose levels -Hemoglobin A1c 7.1% Hypertension, controlled -Monitor vital signs and Continue with Bystolic Chronic medical conditions include: Coronary artery disease History of Myocardial infarction Dyslipidemia CODE STATUS: Full code DVT prophylaxis: Heparin gtt Discussed with: Patient and RN Anticipated discharge: Clinical course to determine Anticipated discharge place: home, possibly with homecare
[2021-01-14 17:13] LABS: Glucose,Whole Blood 270 mg/dL (75-99)
[2021-01-14 20:27] LABS: Glucose,Whole Blood 197 mg/dL (75-99)
[2021-01-14] MEDS: HYDROcodone/APAP 5-325MG 1 EACH TAB PO PRN (20:32)
[2021-01-15 06:01] LABS: Glucose,Whole Blood 150 mg/dL (75-99)
[2021-01-15] MEDS: HEPARIN SOD,PORK IN 0.45% NACL 25,000 UNIT in 0.45% NACL 1 250ML.BAG IV SCH ×2 (06:27→20:56)
[2021-01-15] MEDS: INSULIN ASPART (NovoLOG) 100 UNIT/ML VIAL SQ SCH ×7 (06:54→20:43)
[2021-01-15] MEDS: PANTOPRAZOLE 40 MG TABLET PO SCH ×2 (06:55→18:34)
[2021-01-15] MEDS: INSULIN DETEMIR (LEVEMIR) 100 UNIT/ML SYR SQ SCH (06:55)
[2021-01-15] MEDS: ALBUTEROL HFA INHALER INHALATION PRN ×2 (08:50→20:28)
[2021-01-15] MEDS: dexAMETHasone 2 MG TAB PO SCH (10:15)
[2021-01-15] MEDS: LOSARTAN 25 MG TAB PO SCH (10:15)
[2021-01-15] MEDS: CHOLECALCIFEROL 25 MCG (1000 IU) TABLET PO SCH (10:15)
[2021-01-15] MEDS: ZINC SULFATE 220 MG CAP PO SCH (10:15)
[2021-01-15] MEDS: NEBIVOLOL 5 MG TAB PO SCH (10:16)
[2021-01-15] MEDS: EZETIMIBE 10 MG TAB PO SCH (10:16)
[2021-01-15] MEDS: ASCORBIC ACID 500 MG TAB PO SCH (10:16)
[2021-01-15] MEDS: TICAGRELOR 90 MG TAB PO SCH ×2 (10:16→20:43)
[2021-01-15 11:24] LABS: Glucose,Whole Blood 125 mg/dL (75-99)
[2021-01-15] MEDS: BARICITINIB 2 MG TABLET PO SCH (12:16)
--- NOTE | 2021-01-15 12:31 | P.PN ---
Subjective Progress Note Date: 01/15/21 Patient reports continued improvement. Is resting in bed, and breathing comfortably. Airvo settings are being down titrated by respiratory therapy.. Objective - Vital Signs Vital signs: Vital Signs Temp 98.4 F 01/15/21 08:00 Pulse 84 01/15/21 08:00 Resp 18 01/15/21 08:00 BP 90/60 01/15/21 08:00 Pulse Ox 95 01/15/21 11:21 Intake & Output 01/14/21 01/15/21 01/15/21 18:59 06:59 18:59 Intake Total 9566.798 5837.148 Output Total 1025 500 Balance 29.063 676.148 Weight 84.1 kg Intake: Intake, IV Titration 94.063 206.148 Amount Heparin Sod,Pork in 0.45% 94.063 206.148 NaCl 25,000 unit In 0.45 % NaCl 1 250ml.bag @ 18 UNITS/KG/HR 14.76 mls/hr IV .[id number] [facility] Rx#: [id number] Oral 960 970 Output: Urine 1025 500 Other: Voiding Method Urinal # Bowel Movements 4 - Exam Gen: awake, alert HEENT: normocephalic, atraumatic, good hearing acuity, moist mucous membranes Resp: Impaired air exchange, symmetric chest expansion, AirVo CVS: good distal perfusion x 4, GI: soft, NTTP, ND : no SPT, no CVAT, yeh catheter not present MSK: no pitting edema, no clubbing Neuro: non-focal, moving all extremities Psych: cooperative, euthymic mood - Labs CBC & Chem 7: 01/14/21 07:16 01/14/21 07:16 Labs: Abnormal Lab Results - Last 24 Hours (Table) 01/14/21 01/14/21 01/15/21 Range/Units 16:52 20:26 05:59 APTT (22.0-30.0) sec POC Glucose (mg/dL) 270 H 197 H 150 H (75-99) mg/dL 01/15/21 01/15/21 Range/Units 07:13 11:22 APTT 45.9 H (22.0-30.0) sec POC Glucose (mg/dL) 125 H (75-99) mg/dL Assessment and Plan Assessment: Acute hypoxic respiratory failure ARDS secondary to COVID-19 pneumonia Right lower extremity DVT -Steroids, currently dexamethasone day 13 -Baricitinib day ; d/c'd on 01/15 -Pulmonary following, appreciate further recommendations. -Continuation of Zinc, vitamin C, vitamin D -Follow inflammatory markers -Heparin gtt -Hematology following, appreciate further recommendations -Vascular surgery following, recommending close follow-up with vascular surgery in [place] upon discharge Diabetes mellitus type II -Jardiance and metformin on hold -Glycemic protocol with NovoLog sliding scale -Levemir -Follow blood glucose levels -Hemoglobin A1c 7.1% Hypertension, controlled -Monitor vital signs and Continue with Bystolic Chronic medical conditions include: Coronary artery disease History of Myocardial infarction Dyslipidemia -continue home meds CODE STATUS: Full code DVT prophylaxis: Heparin gtt Anticipated discharge: Clinical course to determine Anticipated discharge place: home, possibly with homecare
--- NOTE | 2021-01-15 12:47 | P.PN ---
Subjective Progress Note Date: 01/15/21 Principal diagnosis: COVID-19 pneumonia 56-year-old male, seen in the emergency room, on December 31. The patient has a history of diabetes and hypertension. He Presents to the emergency room complaining of shortness of breath. The patient was apparently transferred from [facility] and [place]. There he was apparently diagnosed with COVID pneumonia. The patient was diagnosed with bilateral pneumonia secondary to coronavirus. The patient was transferred down on BiPAP therapy. He was quite anxious. More recently, he was transitioned over to high flow nasal O2. He denied any chest pain or chest discomfort. There is no fever or chills. The patient has been having symptoms for at least 10 days and may be a bit longer. The patient has not received a coronavirus vaccine. Currently, the patient is on AIRVO, at 40 L/m and 55%. His saturations are in the low 90s. White count 2.43, hemoglobin 13.8, hematocrit 39.8, and platelet count 137,000. PT 10.4, INR 1, fibrinogen 524, PTT 25.1, and d-dimer 0.83. Sodium was 135, potassium 4, chloride 99, CO2 24, anion gap 12, BUN 28, creatinine 1. The patient's CK was 428. LDH was 647, and C-reactive protein was 7.9. Chest x-ray showed diffuse bilateral infiltrates. Currently, the patient's on albuterol inhaler, Decadron, Pradaxa, and his usual cardiac medications. Progress note dated 01/01/2021. This is a 56-year-old male, again seen in room 369. The patient has a history of diabetes and hypertension, and presented to the emergency department with shortness of breath. He was transferred down from [facility] in [place]. The patient apparently has been tested a couple times for coronavirus, and tested negative or inconclusive. He was retested here. The patient is being treated as if he has coronavirus pneumonia. Currently, he is on AIRVO. He was on 55 L/m and an FiO2 of 80%. The patient will be sent down on BiPAP for a CT angiogram. There is no new laboratory data today. The patient's major issue is shortness of breath and anxiety. The patient is seen today 01/02/2021 and follow-up on the selective care unit. He is currently resting fairly comfortably in bed. Still short of breath with minimal activity. Short of breath with conversation. He is currently on air bubble high flow oxygen at 55 L and 80% FiO2. He did test positive for the coronavirus by PCR here. White count 7.6. Hemoglobin 13.1. Lymphocytes 0.4. D-dimer 1.3. Sodium 139. Potassium 30.8. Creatinine 0.70. Glucose 187. He remains on DuoNeb inhalations, IV Solu-Medrol, vitamin supplements. Anticoagulated with Pradaxa. CT angiogram ruled out pulmonary embolism. There is bilateral multifocal and confluent groundglass opacities and organizing consolidation consistent with COVID-19 infection The patient is 01/03/2021 in follow-up on selective care unit. He is currently resting fairly comfortably in bed. Awake and alert in no acute distress. Continues with shortness of breath on exertion. He remains on air bubble at 55 L 88% FiO2 to maintain O2 saturations in the high 80s and low 90s. He is afebrile. Bradycardic. Blood glucose 245. He remains on DuoNeb inhalations, IV Solu-Medrol, vitamin supplements. Continued on Tessalon Perles. Anticoagulated with Pradaxa. He was initiated on Baricitinib yesterday. The patient is seen today in 01/12/2021 in follow-up on the selective care unit. He is currently resting comfortably in bed. Awake and alert in no acute distress. He remains on AirVo high flow oxygen at 15 L and 55% FiO2. O2 saturation 93%. Denies any worsening shortness of breath, cough or congestion. Improving slightly today compared to yesterday. Chest x-ray continues to show bilateral patchy infiltrates. Greater at the lung bases. White count 13.8. Hemoglobin 14.0. Sodium 133. Potassium 4.0. Creatinine 0.71. Glucose 159. He remains on a heparin drip. Continued on Baricitinib, bronchodilators, Decadron, vitamin supplements. Patient is seen today in 01/13/2021 in follow-up on the selective care unit. He is awake and alert in no acute distress. He is feeling a bit stronger today compared to yesterday. A little S short of breath. He is down to 40 L and 55% FiO2 via the AirVo high flow oxygen. He remains on a heparin drip. White count 9.1. Hemoglobin 13.3. Lymphocytes 0.4. D-dimer 3.09. Sodium 133. Potassium 4.0. Creatinine 0.60. LDH 974. C-reactive protein 6.9. Continued on Baricitinib, bronchodilators, Decadron, vitamin supplements. The patient is seen today 01/14/2021 in follow-up on the selective care unit. He is currently sitting up in a chair at the bedside. Awake and alert in no acute distress. Breathing a bit easier today compared to yesterday. He is down to 40 L and 40% FiO2 via the AirVo high flow oxygen. White count 11.8. Hemoglobin 13.4. Lymphocytes 0.6. Sodium 134. Potassium 4.1. Creatinine 0.77. LDH 85. C-reactive protein 4.8. He remains on Baricitinib. Continues on Decadron and vitamin supplements. He remains on a heparin drip. The patient is seen today 01/15/2021 in follow-up on the selective care unit. He is currently resting comfortably in bed. Awake and alert in no acute distress. Doing about the same today as compared to yesterday. He is down to 35 L and 40% FiO2 via the AirVo high flow oxygen. Continues on Decadron and vitamin supplements. He remains on a heparin drip. He completed his course of Baricitinib today. Objective - Vital Signs Vital signs: Vital Signs Temp 98.4 F 01/15/21 08:00 Pulse 84 01/15/21 08:00 Resp 18 01/15/21 08:00 BP 90/60 01/15/21 08:00 Pulse Ox 95 01/15/21 11:21 Intake & Output 01/14/21 01/15/21 01/15/21 18:59 06:59 18:59 Intake Total 8504.077 1919.148 Output Total 1025 500 Balance 29.063 676.148 Weight 84.1 kg Intake: Intake, IV Titration 94.063 206.148 Amount Heparin Sod,Pork in 0.45% 94.063 206.148 NaCl 25,000 unit In 0.45 % NaCl 1 250ml.bag @ 18 UNITS/KG/HR 14.76 mls/hr IV .[id number] [facility] Rx#: [id number] Oral 960 970 Output: Urine 1025 500 Other: Voiding Method Urinal # Bowel Movements 4 - Exam GENERAL EXAM: Alert, pleasant 55-year-old, on AirVo high flow oxygen at 35 L and 40% FiO2, fairly comfortable in no apparent distress. HEAD: Normocephalic. EYES: Normal reaction of pupils, equal size. NOSE: Clear with pink turbinates. THROAT: No erythema or exudates. NECK: No masses, no JVD. CHEST: No chest wall deformity. LUNGS: Equal air entry with coarse crackles in the posterior bases CVS: S1 and S2 normal with no audible murmur, regular rhythm. ABDOMEN: No hepatosplenomegaly, normal bowel sounds, no guarding or rigidity. SPINE: No scoliosis or deformity SKIN: No rashes CENTRAL NERVOUS SYSTEM: No focal deficits, tone is normal in all 4 extremities. EXTREMITIES: There is no peripheral edema. No clubbing, no cyanosis. Peripheral pulses are intact. - Labs CBC & Chem 7: 01/14/21 07:16 01/14/21 07:16 Labs: Abnormal Lab Results - Last 24 Hours (Table) 01/14/21 01/14/21 01/15/21 Range/Units 16:52 20:26 05:59 APTT (22.0-30.0) sec POC Glucose (mg/dL) 270 H 197 H 150 H (75-99) mg/dL 01/15/21 01/15/21 Range/Units 07:13 11:22 APTT 45.9 H (22.0-30.0) sec POC Glucose (mg/dL) 125 H (75-99) mg/dL Assessment and Plan Assessment: 1 Acute hypoxemic respiratory failure secondary to CoVID 19 pneumonia. Initiated on Baricitinib 01/02/2021, completed 01/15/2021. 2 History of diabetes mellitus. 3 History of hypertension. 4 History of coronary artery disease. 5 History of myocardial infarction. 6 History of hyperlipidemia. Plan: The patient was seen and evaluated by Dr. Girard Completed Baricitinib today Continued on heparin drip, Decadron, vitamins Remains on AirVo high flow oxygen at 35 L and 40% FiO2 We'll change to high flow nasal cannula if tolerated Titrate down the FiO2 as tolerated Increase his activity as tolerated We will continue to follow I, the cosigning physician, performed a history & physical examination of the patient. Lungs sounds with coarse crackles in the posterior bases. Maintaining good O2 saturations in the 90s on AirVo 35L and 40% FiO2. I discussed the assessment and plan of care with my nurse practitioner, Reena Morgan. I attest to the above note as dictated by her.
[2021-01-15 17:18] LABS: Glucose,Whole Blood 231 mg/dL (75-99)
[2021-01-15 20:25] LABS: Glucose,Whole Blood 204 mg/dL (75-99)
[2021-01-15] MEDS: HYDROcodone/APAP 5-325MG 1 EACH TAB PO PRN (20:46)
[2021-01-16 06:17] LABS: Glucose,Whole Blood 109 mg/dL (75-99)
[2021-01-16] MEDS: INSULIN ASPART (NovoLOG) 100 UNIT/ML VIAL SQ SCH ×7 (06:18→20:46)
[2021-01-16] MEDS: PANTOPRAZOLE 40 MG TABLET PO SCH ×2 (06:34→18:31)
[2021-01-16] MEDS: HEPARIN SOD,PORK IN 0.45% NACL 25,000 UNIT in 0.45% NACL 1 250ML.BAG IV SCH (06:36)
[2021-01-16] MEDS: ALBUTEROL HFA INHALER INHALATION PRN ×2 (08:11→17:16)
[2021-01-16 09:19] LABS: Glucose,Whole Blood 181 mg/dL (75-99)
[2021-01-16] MEDS: INSULIN DETEMIR (LEVEMIR) 100 UNIT/ML SYR SQ SCH (10:48)
[2021-01-16] MEDS: CHOLECALCIFEROL 25 MCG (1000 IU) TABLET PO SCH (10:50)
[2021-01-16] MEDS: ZINC SULFATE 220 MG CAP PO SCH (10:50)
[2021-01-16] MEDS: ASCORBIC ACID 500 MG TAB PO SCH (10:50)
[2021-01-16] MEDS: TICAGRELOR 90 MG TAB PO SCH ×2 (10:50→20:46)
[2021-01-16] MEDS: LOSARTAN 25 MG TAB PO SCH (10:50)
[2021-01-16] MEDS: dexAMETHasone 2 MG TAB PO SCH (10:50)
[2021-01-16] MEDS: EZETIMIBE 10 MG TAB PO SCH (10:51)
[2021-01-16] MEDS: NEBIVOLOL 5 MG TAB PO SCH (10:51)
--- NOTE | 2021-01-16 12:00 | P.PN ---
Subjective Progress Note Date: 01/16/21 Principal diagnosis: COVID-19 pneumonia 56-year-old male, seen in the emergency room, on December 31. The patient has a history of diabetes and hypertension. He Presents to the emergency room complaining of shortness of breath. The patient was apparently transferred from [facility] and [place]. There he was apparently diagnosed with COVID pneumonia. The patient was diagnosed with bilateral pneumonia secondary to coronavirus. The patient was transferred down on BiPAP therapy. He was quite anxious. More recently, he was transitioned over to high flow nasal O2. He denied any chest pain or chest discomfort. There is no fever or chills. The patient has been having symptoms for at least 10 days and may be a bit longer. The patient has not received a coronavirus vaccine. Currently, the patient is on AIRVO, at 40 L/m and 55%. His saturations are in the low 90s. White count 2.43, hemoglobin 13.8, hematocrit 39.8, and platelet count 137,000. PT 10.4, INR 1, fibrinogen 524, PTT 25.1, and d-dimer 0.83. Sodium was 135, potassium 4, chloride 99, CO2 24, anion gap 12, BUN 28, creatinine 1. The patient's CK was 428. LDH was 647, and C-reactive protein was 7.9. Chest x-ray showed diffuse bilateral infiltrates. Currently, the patient's on albuterol inhaler, Decadron, Pradaxa, and his usual cardiac medications. Progress note dated 01/01/2021. This is a 56-year-old male, again seen in room 369. The patient has a history of diabetes and hypertension, and presented to the emergency department with shortness of breath. He was transferred down from [facility] in [place]. The patient apparently has been tested a couple times for coronavirus, and tested negative or inconclusive. He was retested here. The patient is being treated as if he has coronavirus pneumonia. Currently, he is on AIRVO. He was on 55 L/m and an FiO2 of 80%. The patient will be sent down on BiPAP for a CT angiogram. There is no new laboratory data today. The patient's major issue is shortness of breath and anxiety. The patient is seen today 01/02/2021 and follow-up on the selective care unit. He is currently resting fairly comfortably in bed. Still short of breath with minimal activity. Short of breath with conversation. He is currently on air bubble high flow oxygen at 55 L and 80% FiO2. He did test positive for the coronavirus by PCR here. White count 7.6. Hemoglobin 13.1. Lymphocytes 0.4. D-dimer 1.3. Sodium 139. Potassium 30.8. Creatinine 0.70. Glucose 187. He remains on DuoNeb inhalations, IV Solu-Medrol, vitamin supplements. Anticoagulated with Pradaxa. CT angiogram ruled out pulmonary embolism. There is bilateral multifocal and confluent groundglass opacities and organizing consolidation consistent with COVID-19 infection The patient is 01/03/2021 in follow-up on selective care unit. He is currently resting fairly comfortably in bed. Awake and alert in no acute distress. Continues with shortness of breath on exertion. He remains on air bubble at 55 L 88% FiO2 to maintain O2 saturations in the high 80s and low 90s. He is afebrile. Bradycardic. Blood glucose 245. He remains on DuoNeb inhalations, IV Solu-Medrol, vitamin supplements. Continued on Tessalon Perles. Anticoagulated with Pradaxa. He was initiated on Baricitinib yesterday. The patient is seen today in 01/12/2021 in follow-up on the selective care unit. He is currently resting comfortably in bed. Awake and alert in no acute distress. He remains on AirVo high flow oxygen at 15 L and 55% FiO2. O2 saturation 93%. Denies any worsening shortness of breath, cough or congestion. Improving slightly today compared to yesterday. Chest x-ray continues to show bilateral patchy infiltrates. Greater at the lung bases. White count 13.8. Hemoglobin 14.0. Sodium 133. Potassium 4.0. Creatinine 0.71. Glucose 159. He remains on a heparin drip. Continued on Baricitinib, bronchodilators, Decadron, vitamin supplements. Patient is seen today in 01/13/2021 in follow-up on the selective care unit. He is awake and alert in no acute distress. He is feeling a bit stronger today compared to yesterday. A little S short of breath. He is down to 40 L and 55% FiO2 via the AirVo high flow oxygen. He remains on a heparin drip. White count 9.1. Hemoglobin 13.3. Lymphocytes 0.4. D-dimer 3.09. Sodium 133. Potassium 4.0. Creatinine 0.60. LDH 974. C-reactive protein 6.9. Continued on Baricitinib, bronchodilators, Decadron, vitamin supplements. The patient is seen today 01/14/2021 in follow-up on the selective care unit. He is currently sitting up in a chair at the bedside. Awake and alert in no acute distress. Breathing a bit easier today compared to yesterday. He is down to 40 L and 40% FiO2 via the AirVo high flow oxygen. White count 11.8. Hemoglobin 13.4. Lymphocytes 0.6. Sodium 134. Potassium 4.1. Creatinine 0.77. LDH 85. C-reactive protein 4.8. He remains on Baricitinib. Continues on Decadron and vitamin supplements. He remains on a heparin drip. The patient is seen today 01/15/2021 in follow-up on the selective care unit. He is currently resting comfortably in bed. Awake and alert in no acute distress. Doing about the same today as compared to yesterday. He is down to 35 L and 40% FiO2 via the AirVo high flow oxygen. Continues on Decadron and vitamin supplements. He remains on a heparin drip. He completed his course of Baricitinib today. The patient is seen today 01/16/2021 in follow-up on selective care unit. He remains awake and alert in no acute distress. Resting fairly comfortably in bed. His been changed over to high flow nasal cannula currently at 11 L with O2 saturation 93%. He is afebrile. Blood glucose 181. He remains on heparin drip . Continued on Decadron, vitamin supplements. Objective - Vital Signs Vital signs: Vital Signs Temp 98.2 F 01/16/21 10:49 Pulse 58 L 01/16/21 10:49 Resp 18 01/16/21 10:49 BP 95/55 01/16/21 10:49 Pulse Ox 93 L 01/16/21 10:49 Intake & Output 01/15/21 01/16/21 01/16/21 18:59 06:59 18:59 Intake Total 480 237.636 240 Output Total 1150 600 175 Balance -670 -362.364 65 Weight 77 kg Intake: Intake, IV Titration 237.636 Amount Heparin Sod,Pork in 0.45% 237.636 NaCl 25,000 unit In 0.45 % NaCl 1 250ml.bag @ 18 UNITS/KG/HR 14.76 mls/hr IV .[id number] [facility] Rx#: [id number] Oral 480 240 Output: Urine 1150 600 175 Other: Voiding Method Urinal - Exam GENERAL EXAM: Alert, pleasant 55-year-old, on 11 L high flow oxygen with O2 saturation 93%, fairly comfortable in no apparent distress. HEAD: Normocephalic. EYES: Normal reaction of pupils, equal size. NOSE: Clear with pink turbinates. THROAT: No erythema or exudates. NECK: No masses, no JVD. CHEST: No chest wall deformity. LUNGS: Equal air entry with coarse crackles in the posterior bases CVS: S1 and S2 normal with no audible murmur, regular rhythm. ABDOMEN: No hepatosplenomegaly, normal bowel sounds, no guarding or rigidity. SPINE: No scoliosis or deformity SKIN: No rashes CENTRAL NERVOUS SYSTEM: No focal deficits, tone is normal in all 4 extremities. EXTREMITIES: There is no peripheral edema. No clubbing, no cyanosis. Peripheral pulses are intact. - Labs CBC & Chem 7: 01/14/21 07:16 01/14/21 07:16 Labs: Abnormal Lab Results - Last 24 Hours (Table) 01/15/21 01/15/21 01/16/21 Range/Units 17:15 20:21 06:16 APTT (22.0-30.0) sec POC Glucose (mg/dL) 231 H 204 H 109 H (75-99) mg/dL 01/16/21 01/16/21 Range/Units 09:17 09:32 APTT 48.5 H (22.0-30.0) sec POC Glucose (mg/dL) 181 H (75-99) mg/dL Assessment and Plan Assessment: 1 Acute hypoxemic respiratory failure secondary to CoVID 19 pneumonia. Initiated on Baricitinib 01/02/2021, completed 01/15/2021. 2 History of diabetes mellitus. 3 History of hypertension. 4 History of coronary artery disease. 5 History of myocardial infarction. 6 History of hyperlipidemia. Plan: The patient was seen and evaluated by Dr. Era Continued on heparin drip, Decadron, vitamins Improving and now on 11 L high flow nasal cannula Titrate down the FiO2 as tolerated Increase his activity as tolerated We will continue to follow I, the cosigning physician, performed a history & physical examination of the patient. Lungs sounds with coarse crackles in the posterior bases. Maintaining good O2 saturations in the 90s on 11 L high flow nasal cannula. I discussed the assessment and plan of care with my nurse practitioner, Reena Morgan. I attest to the above note as dictated by her.
[2021-01-16 12:07] LABS: Glucose,Whole Blood 150 mg/dL (75-99)
--- NOTE | 2021-01-16 14:54 | P.PN ---
Subjective Progress Note Date: 01/16/21 Pt is improving, now on HFNC, saturating high 90s. S/p baricitinib. Objective - Vital Signs Vital signs: Vital Signs Temp 97.9 F 01/16/21 14:01 Pulse 66 01/16/21 14:01 Resp 18 01/16/21 14:01 BP 92/53 01/16/21 14:01 Pulse Ox 94 L 01/16/21 14:01 Intake & Output 01/15/21 01/16/21 01/16/21 18:59 06:59 18:59 Intake Total 480 237.636 420 Output Total 1150 600 175 Balance -670 -362.364 245 Weight 77 kg Intake: Intake, IV Titration 237.636 Amount Heparin Sod,Pork in 0.45% 237.636 NaCl 25,000 unit In 0.45 % NaCl 1 250ml.bag @ 18 UNITS/KG/HR 14.76 mls/hr IV .[id number] [facility] Rx#: [id number] Oral 480 420 Output: Urine 1150 600 175 Other: Voiding Method Urinal - Exam Gen: awake, alert HEENT: normocephalic, atraumatic, good hearing acuity, moist mucous membranes Resp: Impaired air exchange, symmetric chest expansion, AirVo CVS: good distal perfusion x 4, GI: soft, NTTP, ND : no SPT, no CVAT, yeh catheter not present MSK: no pitting edema, no clubbing Neuro: non-focal, moving all extremities Psych: cooperative, euthymic mood - Labs CBC & Chem 7: 01/14/21 07:16 01/14/21 07:16 Labs: Abnormal Lab Results - Last 24 Hours (Table) 01/15/21 01/15/21 01/16/21 Range/Units 17:15 20:21 06:16 APTT (22.0-30.0) sec POC Glucose (mg/dL) 231 H 204 H 109 H (75-99) mg/dL 01/16/21 01/16/21 01/16/21 Range/Units 09:17 09:32 12:05 APTT 48.5 H (22.0-30.0) sec POC Glucose (mg/dL) 181 H 150 H (75-99) mg/dL Assessment and Plan Assessment: Acute hypoxic respiratory failure ARDS secondary to COVID-19 pneumonia Right lower extremity DVT -Steroids, currently dexamethasone day 13 -Baricitinib completed, d/c'd on 01/15 -Pulmonary following, appreciate further recommendations. -Continuation of Zinc, vitamin C, vitamin D -Follow inflammatory markers -Heparin gtt -Hematology following, appreciate further recommendations -Vascular surgery following, recommending close follow-up with vascular surgery in [place] upon discharge Diabetes mellitus type II -Jardiance and metformin on hold -Glycemic protocol with NovoLog sliding scale -Levemir -Follow blood glucose levels -Hemoglobin A1c 7.1% Hypertension, controlled -Monitor vital signs and Continue with Bystolic Chronic medical conditions include: Coronary artery disease History of Myocardial infarction Dyslipidemia -continue home meds CODE STATUS: Full code DVT prophylaxis: Heparin gtt Anticipated discharge: Clinical course to determine Anticipated discharge place: home, possibly with homecare
[2021-01-16 16:58] LABS: Glucose,Whole Blood 238 mg/dL (75-99)
[2021-01-16] MEDS: HYDROcodone/APAP 5-325MG 1 EACH TAB PO PRN (18:31)
[2021-01-16 20:21] LABS: Glucose,Whole Blood 223 mg/dL (75-99)
[2021-01-17] MEDS: HEPARIN SOD,PORK IN 0.45% NACL 25,000 UNIT in 0.45% NACL 1 250ML.BAG IV SCH (05:56)
[2021-01-17] MEDS: PANTOPRAZOLE 40 MG TABLET PO SCH (05:56)
[2021-01-17] MEDS: HYDROcodone/APAP 5-325MG 1 EACH TAB PO PRN (06:05)
[2021-01-17] MEDS ORDERED: INSULIN DETEMIR (LEVEMIR) 100 UNIT/ML SYR SQ SCH (07:00)
[2021-01-17] MEDS: ALBUTEROL HFA INHALER INHALATION PRN ×3 (07:56→17:13)
--- NOTE | 2021-01-17 08:04 | XR ---
EXAMINATION TYPE: XR chest 1V portable DATE OF EXAM: 01/17/2021 COMPARISON: Chest x-ray 01/12/2021 HISTORY: Covid pneumonia TECHNIQUE: Single frontal view of the chest is obtained. FINDINGS: Lung volumes are low. Heart is enlarged. Technique is apical lordotic and rotated. There a re overlying artifacts. No evident pneumothorax. Bilateral airspace disease is suspected, right hemid iaphragm is elevated. Left hemidiaphragm is obscured. IMPRESSION: Findings consistent with pneumonia. Expiratory rotated exam. Suspect underlying cardiome dottie.
[2021-01-17 08:22] LABS: Glucose,Whole Blood 141 mg/dL (75-99)
[2021-01-17 09:54] LABS: C Reactive Protein 1.7 mg/dL (<1.0)
[2021-01-17 09:55] LABS: Partial Thromboplastin Time 45.5 sec (22.0-30.0)
[2021-01-17] MEDS: EZETIMIBE 10 MG TAB PO SCH (10:46)
[2021-01-17] MEDS: CHOLECALCIFEROL 25 MCG (1000 IU) TABLET PO SCH (10:47)
[2021-01-17] MEDS: dexAMETHasone 2 MG TAB PO SCH (10:47)
[2021-01-17] MEDS: ASCORBIC ACID 500 MG TAB PO SCH (10:48)
[2021-01-17] MEDS: NEBIVOLOL 5 MG TAB PO SCH (10:48)
[2021-01-17] MEDS: LOSARTAN 25 MG TAB PO SCH (10:48)
[2021-01-17] MEDS: TICAGRELOR 90 MG TAB PO SCH (10:48)
[2021-01-17] MEDS: ZINC SULFATE 220 MG CAP PO SCH (10:48)
[2021-01-17] MEDS: INSULIN ASPART (NovoLOG) 100 UNIT/ML VIAL SQ SCH ×4 (10:49→14:31)
[2021-01-17 11:06] VITALS: BP 102/60; PULSE 60; RESP 18; TEMP 97.6
[2021-01-17 11:42] LABS: Glucose,Whole Blood 186 mg/dL (75-99)
[2021-01-17] MEDS ORDERED: APIXABAN 5 MG TAB PO SCH (13:45)
--- NOTE | 2021-01-17 14:34 | P.PN ---
Subjective Progress Note Date: 01/17/21 Principal diagnosis: Acute hypoxic story failure secondary to COVID-19 pneumonia The patient is seen today 01/14/2021 in follow-up on the selective care unit. He is currently sitting up in a chair at the bedside. Awake and alert in no acute distress. Breathing a bit easier today compared to yesterday. He is down to 40 L and 40% FiO2 via the AirVo high flow oxygen. White count 11.8. Hemoglobin 13.4. Lymphocytes 0.6. Sodium 134. Potassium 4.1. Creatinine 0.77. LDH 85. C-reactive protein 4.8. He remains on Baricitinib. Continues on Decadron and vitamin supplements. He remains on a heparin drip. The patient is seen today 01/15/2021 in follow-up on the selective care unit. He is currently resting comfortably in bed. Awake and alert in no acute distress. Doing about the same today as compared to yesterday. He is down to 35 L and 40% FiO2 via the AirVo high flow oxygen. Continues on Decadron and vitamin supplements. He remains on a heparin drip. He completed his course of Baricitinib today. The patient is seen today 01/16/2021 in follow-up on selective care unit. He remains awake and alert in no acute distress. Resting fairly comfortably in bed . His been changed over to high flow nasal cannula currently at 11 L with O2 saturation 93%. He is afebrile. Blood glucose 181. He remains on heparin drip. Continued on Decadron, vitamin supplements. 5 L nasal cannula, Patient was evaluated today on 01/17/2021, patient remains about the same, however the major change today is down to 5 L nasal cannula, and his O2 saturation was 95% earlier. Of course he desaturates with activity. But at rest when I examined the patient is O2 saturation was 95% on 5 L cannula. Patient remains on heparin which I plan to transition to Eliquis, he remains on Decadron and he remains on vitamin supplements. Patient had a very poor quality chest x-ray today nonetheless he continues to have bilateral interstitial infiltrates consistent with COVID-19 pneumonia or postinflammatory change from COVID-19 pneumonia. Objective - Vital Signs Vital signs: Vital Signs Temp 97.6 F 01/17/21 11:01 Pulse 60 01/17/21 11:01 Resp 18 10/10/21 11:01 BP 102/60 01/17/21 11:01 Pulse Ox 89 L 01/17/21 11:01 Intake & Output 01/16/21 01/17/21 01/17/21 18:59 06:59 18:59 Intake Total 600 229.6 Output Total 375 800 Balance 225 -570.4 Weight 77 kg Intake: Intake, IV Titration 229.6 Amount Heparin Sod,Pork in 0.45% 229.6 NaCl 25,000 unit In 0.45 % NaCl 1 250ml.bag @ 18 UNITS/KG/HR 14.76 mls/hr IV .[id number] [facility] Rx#: [id number] Oral 600 Output: Urine 375 800 Other: Voiding Method Urinal # Voids 1 - Exam GENERAL EXAM: Revealed 55-year-old white male in no distress. HEENT: PERRLA, EOMI, nonicteric, moist mucous membranes, NECK: No masses, no JVD. CHEST: No chest wall deformity. LUNGS: Bibasilar crackles noted. CVS: Distant S1 and S2, no gallops ABDOMEN: No hepatosplenomegaly, normal bowel sounds, no guarding or rigidity. Skeletal skeletal: No deformities noted limitation range of motion SKIN: No rashes CENTRAL NERVOUS SYSTEM: Alert and oriented 3 in no gross focal deficits. EXTREMITIES: No clubbing edema or cyanosis - Labs CBC & Chem 7: 01/14/21 07:16 01/14/21 07:16 Labs: Abnormal Lab Results - Last 24 Hours (Table) 01/16/21 01/16/21 01/17/21 Range/Units 16:47 20:19 08:05 APTT 45.5 H (22.0-30.0) sec D-Dimer 2.01 H (<0.60) mg/L FEU POC Glucose (mg/dL) 238 H 223 H (75-99) mg/dL Lactate Dehydrogenase (313-618) U/L C-Reactive Protein (<1.0) mg/dL 01/17/21 01/17/21 01/17/21 Range/Units 08:05 08:19 11:40 APTT (22.0-30.0) sec D-Dimer (<0.60) mg/L FEU POC Glucose (mg/dL) 141 H 186 H (75-99) mg/dL Lactate Dehydrogenase 714 H (313-618) U/L C-Reactive Protein 1.7 H (<1.0) mg/dL Assessment and Plan Assessment: Impression: Acute hypoxic respiratory failure secondary to COVID-19 pneumonia , patient is now on 5 L nasal cannula History of [place] History of coronary artery disease Elevated d-dimer Type 2 diabetes Dyslipidemia Right lower extremity DVT, remains on full dose heparin. History of bilateral iliac vein and femoral vein stents. Recommendation: Transition heparin to Eliquis. Arrange for home O2 at 5 L nasal cannula Consider discharge planning today on oxygen along with a COVID-19 cocktail, along with Eliquis. Continue COVID-19 cocktail. Continue bronchodilators. Continue Decadron. On outpatient basis for the next 7 days. Continue incentive spirometry Cleared from our perspective for discharge planning as long as we could arrange for home oxygen for the patient today. Time with Patient: Less than 30
--- NOTE | 2021-01-17 15:52 | P.DS ---
Providers Date of admission: 12/31/20 03:00 Expected date of discharge: 01/17/21 Attending physician: Wilbur Corrigan MD Consults: 12/31/20 01:59 Consult Physician Routine Consulting Provider: Remington Lopez Consult Reason/Comments: covid pneumonia Do you want consulting provider notified?: Yes 01/04/21 14:26 Consult Physician Routine Consulting Provider: Sunday Tapia Consult Reason/Comments: DVT in right lower extremity, recommendations on anticoagulation Do you want consulting provider notified?: Yes Primary care physician: Stated None Hospital Course: Acute hypoxic respiratory failure ARDS secondary to COVID-19 pneumonia Right lower extremity DVT Patient admitted for respiratory failure secondary to COVID. Started on deepthi roids, vit c/d, zn. He worsened to the point of requiring baricitinib and AirVo. He developed DVT while in house, ws started on heparin gtt, then transitioned to eliquis. On discharge he required 5L of NC and prescribed albuterol inhaler. Dexamethasone was completed. Vascular surgery was consulted and recommended close f/u with surgeon in [place]. Diabetes mellitus type II -Resumed home medications on discharge with no changes. Hypertension, controlled -Monitor vital signs and Continue with Bystolic Chronic medical conditions include: Coronary artery disease History of Myocardial infarction Dyslipidemia -continued home meds with only change being discontinuation of pradaxa, and prescription for eliquis. I spent 48 minutes coordinating this complex discharge. Assessment: Gen: awake, alert HEENT: normocephalic, atraumatic, good hearing acuity, moist mucous membranes Resp: Impaired air exchange, symmetric chest expansion, AirVo CVS: good distal perfusion x 4, GI: soft, NTTP, ND : no SPT, no CVAT, yeh catheter not present MSK: no pitting edema, no clubbing Neuro: non-focal, moving all extremities Psych: cooperative, euthymic mood Patient Condition at Discharge: Good Plan - Discharge Summary Discharge Rx Participant: Yes New Discharge Prescriptions: New Albuterol Inhaler [Ventolin Hfa Inhaler] 2 puff INHALATION RT-QID PRN #1 inh PRN Reason: Shortness Of Breath Or Wheezing Ascorbic Acid [Vitamin C] 1,000 mg PO DAILY #14 tab Cholecalciferol [Vitamin D3 (25 Mcg = 1000 Iu)] 125 mcg PO DAILY #30 tablet Apixaban [Eliquis Starter Pack (for VTE)] 5 - 10 mg PO DIRECTED 30 Days #1 each Zinc Sulfate [Orazinc] 220 mg PO DAILY #14 cap Continue Nebivolol HCl [Bystolic] 10 mg PO DAILY Ticagrelor [Brilinta] 90 mg PO BID Omeprazole [PriLOSEC] 40 mg PO DAILY Ezetimibe [Zetia] 10 mg PO DAILY Olmesartan Medoxomil 5 mg PO DAILY Empagliflozin [Jardiance] 10 mg PO DAILY metFORMIN HCL [Glucophage] 500 mg PO BID Nitroglycerin [Nitroglycerin 400MCG [place]] 1 spray SUBLINGUAL Q5M PRN PRN Reason: Chest Pain Discontinued Dabigatran [Pradaxa] 150 mg PO BID Discharge Medication List Empagliflozin [Jardiance] 10 mg PO DAILY 12/31/20 [History] Ezetimibe [Zetia] 10 mg PO DAILY 12/31/20 [History] Nebivolol HCl [Bystolic] 10 mg PO DAILY 12/31/20 [History] Nitroglycerin [Nitroglycerin 400MCG [place]] 1 spray SUBLINGUAL Q5M PRN 12/31/20 [History] Olmesartan Medoxomil 5 mg PO DAILY 12/31/20 [History] Omeprazole [PriLOSEC] 40 mg PO DAILY 12/31/20 [History] Ticagrelor [Brilinta] 90 mg PO BID 12/31/20 [History] metFORMIN HCL [Glucophage] 500 mg PO BID 12/31/20 [History] Albuterol Inhaler [Ventolin Hfa Inhaler] 2 puff INHALATION RT-QID PRN #1 inh 01/17/21 [Rx] Apixaban [Eliquis Starter Pack (for VTE)] 5 - 10 mg PO DIRECTED 30 Days #1 each 01/17/21 [Rx] Ascorbic Acid [Vitamin C] 1,000 mg PO DAILY #14 tab 01/17/21 [Rx] Cholecalciferol [Vitamin D3 (25 Mcg = 1000 Iu)] 125 mcg PO DAILY #30 tablet 01/17/21 [Rx] Zinc Sulfate [Orazinc] 220 mg PO DAILY #14 cap 01/17/21 [Rx] Follow up Appointment(s)/Referral(s): Ángela Girard MD [STAFF PHYSICIAN] - 3 Weeks Rosie Alicea MD [REFERRING] - 1 Week None,Stated [Primary Care Provider] - 1-2 days Patient Instructions/Handouts: Coronavirus Disease 2019 (COVID-19), Deep Vein Thrombosis (DC), Safe Use of Anticoagulants (DC) Activity/Diet/Wound Care/Special Instructions: COVID-19 Stay home until symptoms have subsided for three days. Monitor your symptoms; if you get worse call your healthcare provider immediately Get rest Stay hydrated If you have a medical appointment-Notify your provider that you are COVID positive For emergencies call 911 Cover your cough and sneezes Wash your hands often Try to stay in one place to reduce exposure Avoid sharing personal items Clean surfaces that you touch.
[2021-01-17 16:28] LABS: Glucose,Whole Blood 199 mg/dL (75-99)
== END 2021-01-17 18:19 | disposition home or self-care (01) | DRG 177 ==
LOC: EC 00:47 → 4SSUR 03:00 → 3SCARD 22:17 → 3NCARDOBS 01-07 23:26 → 3SCARD 01-07 23:33
PROVIDERS: ADMIT Internal Medicine; ATTEND Internal Medicine
PROC: 5A09357 Assistance with Respiratory Ventilation, Less than 24 Consecutive Hours, Continuous Positive Airway Pressure (ICD-10-PCS; principal; 2020-12-31)
PROC: 5A0955A Assistance with Respiratory Ventilation, Greater than 96 Consecutive Hours, High Flow/Velocity Cannula (ICD-10-PCS; 2020-12-31)
PROC: 0BH17EZ Insertion of Endotracheal Airway into Trachea, Via Natural or Artificial Opening (ICD-10-PCS; 2020-12-31)
PROC: XW0DXM6 Introduction of Baricitinib into Mouth and Pharynx, External Approach, New Technology Group 6 (ICD-10-PCS; 2020-12-31)
PROC: 3E0F7SF Introduction of Other Gas into Respiratory Tract, Via Natural or Artificial Opening (ICD-10-PCS; 2020-12-31)
PROC: 05HC33Z Insertion of Infusion Device into Left Basilic Vein, Percutaneous Approach (ICD-10-PCS; 2021-01-12)
DX: U07.1 COVID-19 (principal); J12.82 Pneumonia due to coronavirus disease 2019; J80 Acute respiratory distress syndrome; J44.0 Chronic obstructive pulmonary disease with (acute) lower respiratory infection; E87.1 Hypo-osmolality and hyponatremia; I82.431 Acute embolism and thrombosis of right popliteal vein; R00.1 Bradycardia, unspecified; I45.10 Unspecified right bundle-branch block; E11.51 Type 2 diabetes mellitus with diabetic peripheral angiopathy without gangrene; I25.10 Atherosclerotic heart disease of native coronary artery without angina pectoris; I10 Essential (primary) hypertension; I25.2 Old myocardial infarction; E78.5 Hyperlipidemia, unspecified; E86.0 Dehydration; F41.9 Anxiety disorder, unspecified; Z79.01 Long term (current) use of anticoagulants; Z79.02 Long term (current) use of antithrombotics/antiplatelets; Z79.84 Long term (current) use of oral hypoglycemic drugs; Z79.899 Other long term (current) drug therapy; Z86.718 Personal history of other venous thrombosis and embolism; Z87.01 Personal history of pneumonia (recurrent); Z88.6 Allergy status to analgesic agent; Z95.820 Peripheral vascular angioplasty status with implants and grafts
CPT/HCPCS: 36410; 71045; 71275; 74174; 76937; 80048; 80053; 82232; 82550; 82728; 83036; 83615; 83735; 83880; 84145; 84484; 85025; 85379; 85384; 85598; 85610; 85613; 85730; 85732; 86140; 86146; 86147; 93005; 93970; 94002; 94640; 94660; 94760; 99285